=== PATIENT | female | born 2000 | race Caucasian/White ===

== ENCOUNTER 2023-04-12 08:04 | Outpatient (CLI) | payer OTHER, SELFPAY ==
[2023-04-16 12:00] LABS: Progesterone 20.6 ng/mL (***)
== END 2023-04-12 08:05 | disposition home or self-care (01) ==
PROVIDERS: Visit Provider Advanced Practice Midwife
DX: Z31.9 Encounter for procreative management, unspecified (principal)
CPT/HCPCS: 36415; 84144

== ENCOUNTER 2023-04-25 10:43 | Outpatient (CLI) | payer OTHER, SELFPAY ==
--- NOTE | ~2023-04-25 | XR_ITS ---
XR hysterosalpingogram DATE: 04/25/2023 12:19 INDICATION: Female infertility TECHNIQUE: Fluoroscopy and spot images were obtained during a hysterosalpingogram performed by the necologist. COMPARISON: None FINDINGS: Normal shape and size of the uterine cavity. There is opacification of both fallopian tubes , which are of normal caliber, with bilateral peritoneal spillage of contrast material. IMPRESSION: Normal hysterosalpingogram Reviewed, dictated and finalized at [facility]. Reviewed, dictated and finalized at [facility]. IMPRESSION: Normal hysterosalpingogram
[2023-04-25 11:59] LABS: Beta HCG Quantitative < 2.39 mIU/ML
--- NOTE | 2023-04-25 12:34 | W.PM.PROC2 ---
Procedure Note - Detailed Date of Procedure 04/25/23 Pre-op Diagnosis Infertility Post-op Diagnosis Same Procedure Performed Hysterosalpingogram Surgeon Robert Yoo MD Anesthesia None Indications unexplained infertility Findings normal hysterosalpingogram Description of Procedure the patient was placed on the fluoroscopy table. A speculum was placed in the vagina. Cervix was grasped with a tenaculum. The catheter was placed the uterine cavity and the bulb was inflated. The speculum was removed with the angiocath still placed in the intrauterine cavity. Dye was then removed. The catheter. Fluoroscopic images obtained this process. Patient experienced some moderate to severe discomfort. The balloon of the catheter was deflated and the catheter was removed while the images were being obtained. The procedure was terminated. Patient tolerated the procedure well. There were no complications. Estimated Blood Loss 0 Complications No immediate complications Condition Stable Disposition Other
== END 2023-04-25 10:44 | disposition home or self-care (01) ==
PROVIDERS: Visit Provider Obstetrics & Gynecology
DX: N97.9 Female infertility, unspecified (principal)
CPT/HCPCS: 36415; 58340; 74740; 84702; Q9966

== ENCOUNTER 2023-11-29 09:24 | Outpatient (CLI) | payer OTHER, SELFPAY | END 2023-11-29 09:25 | disposition home or self-care (01) | LOC: ANHLAB 09:28 | PROVIDERS: Visit Provider Advanced Practice Midwife | DX: Z32.01 Encounter for pregnancy test, result positive (principal) | CPT/HCPCS: 36415; 84702 ==

== ENCOUNTER 2024-06-30 11:51 | Outpatient (CLI) | payer OTHER, SELFPAY ==
[2024-06-30 12:37] VITALS: BP 150/89; PULSE 72
[2024-06-30 12:53] LABS: Basophils Percent Auto 0.2 % (0.2-1.2); Eosinophils Absolute Auto 0.1 K/mm3 (0-0.3); Hematocrit 38.2 % (37.0-47.0); Hemoglobin 12.9 g/dL (12.0-15.0); Immature Granulocyte Absolute 0.03 K/mm3 (0.00-0.031); Immature Granulocyte Percent A 0.5 % (0-0.5); Lymphocytes Absolute Auto 1.06 K/mm3 (0.9-3.2); Lymphocytes Percent Auto 16.9 % (18.3-44.2); Mean Corpuscular HGB Conc 33.8 g/dl (32-36); Mean Corpuscular Hemoglobin 29.5 pg (26-34); Mean Corpuscular Volume 87.4 fl (80-100); Mean Platelet Volume 11.6 fl (7.4-10.4); Monocytes Absolute Auto 0.6 K/mm3 (0.1-0.6); Monocytes Percent Auto 9.6 % (2.6-8.5); Neutrophils Absolute Auto 4.5 K/mm3 (1.3-6.7); Neutrophils Percent Auto 71.8 % (45.5-73.1); Platelet Count Result 179 k/mm3 (150-375); Red Blood Count 4.37 M/mm3 (4.2-5.4); Red Cell Distribution Width 12.2 % (11.5-14.5); White Blood Count 6.3 K/mm3 (4.5-10.0)
[2024-06-30 12:58] LABS: Add Urine Microscopic? YES; Appearance Urine Clear (Clear); Bacteria Urine 4+ /hpf; Bilirubin Urine Negative (Negative); Blood Urine Trace (Negative); Color Urine Yellow (Yellow); Glucose Urine UA Negative (Negative); Ketones Urine Negative (Negative); Leukocyte Esterase Ur Trace LEU/UL (Negative); Nitrate Urine Negative (Negative); Protein Urine 3+ mg/dL (Negative); Specific Grav Ur 1.012 (1.001-1.035); Squamous Epithelial Cell Urine Few /hpf (Few); Urobilinogen Urine 0.2 mg/dL (<2.0); WBC Urine 21-50 /hpf (0-3); pH Urine 7.5 (5.0-9.0)
[2024-06-30 13:01] VITALS: BP 132/79; PULSE 69
[2024-06-30 13:05] LABS: Alanine Aminotransferase 17 U/L (6-35); Albumin Level 3.5 g/dL (3.5-5.1); Alkaline Phosphatase 101 U/L (38-126); Anion Gap 5 mmol/L (4-12); Aspartate Amino Transferase 25 U/L (14-36); Bilirubin,Total 0.3 mg/dL (0.2-1.3); Blood Urea Nitrogen 5 mg/dL (7-17); Calcium 9.1 mg/dL (8.4-10.2); Carbon Dioxide 23 mmol/L (22-30); Chloride 106 mmol/L (98-107); Estimated Glomerular Filt Rate > 60; Glucose 83 mg/dL (65-110); Potassium 4.1 mmol/L (3.4-5.0); Sodium 134 mmol/L (137-145); Uric Acid 5.2 mg/dL (2.5-7.5)
[2024-06-30 13:13] VITALS: BP 132/79; PULSE 69
[2024-06-30 13:15] VITALS: BP 137/84; PULSE 74
[2024-06-30 13:31] VITALS: BP 138/85; PULSE 71
[2024-06-30 13:43] LABS: Creatinine Urine 81.5 mg/dL
--- NOTE | 2024-06-30 13:45 | PC.NURSE ---
pt to preadmit office for her preadmission appointment.
[2024-06-30 14:41] LABS: Total Protein Urine Random 501 mg/dL; Ur Ttl Prot Creatinine Ratio 6.15 mg/mg (0-0.20)
== END 2024-06-30 13:45 | disposition home or self-care (01) ==
LOC: ANHOBOP 12:08 → ANHOBPP 12:10
PROVIDERS: Visit Provider Advanced Practice Midwife
DX: O13.9 Gestational [pregnancy-induced] hypertension without significant proteinuria, unspecified trimester (principal); Z3A.00 Weeks of gestation of pregnancy not specified
CPT/HCPCS: 36415; 59025; 80053; 81001; 82570; 84156; 84550; 85025; 87086

== ENCOUNTER 2024-07-02 11:43 | Outpatient (CLI) | payer OTHER, SELFPAY ==
[2024-07-02 12:16] VITALS: BP 138/75; PULSE 67
[2024-07-02 12:21] LABS: Basophils Percent Auto 0.3 % (0.2-1.2); Eosinophils Absolute Auto 0.1 K/mm3 (0-0.3); Eosinophils Percent Auto 1.4 % (0-4.4); Hematocrit 37.8 % (37.0-47.0); Hemoglobin 12.8 g/dL (12.0-15.0); Immature Granulocyte Absolute 0.05 K/mm3 (0.00-0.031); Immature Granulocyte Percent A 0.7 % (0-0.5); Lymphocytes Absolute Auto 1.92 K/mm3 (0.9-3.2); Lymphocytes Percent Auto 26.8 % (18.3-44.2); Mean Corpuscular HGB Conc 33.9 g/dl (32-36); Mean Corpuscular Hemoglobin 29.3 pg (26-34); Mean Corpuscular Volume 86.5 fl (80-100); Mean Platelet Volume 11.4 fl (7.4-10.4); Monocytes Absolute Auto 0.6 K/mm3 (0.1-0.6); Monocytes Percent Auto 7.8 % (2.6-8.5); Neutrophils Absolute Auto 4.5 K/mm3 (1.3-6.7); Platelet Count Result 180 k/mm3 (150-375); Red Blood Count 4.37 M/mm3 (4.2-5.4); Red Cell Distribution Width 12.4 % (11.5-14.5); White Blood Count 7.2 K/mm3 (4.5-10.0)
[2024-07-02] MEDS: ACETAMINOPHEN 500 MG TABLET 1000 MG PO (12:27)
[2024-07-02 12:31] VITALS: BP 134/84; PULSE 67
[2024-07-02 12:33] LABS: Alanine Aminotransferase 17 U/L (6-35); Albumin Level 3.5 g/dL (3.5-5.1); Alkaline Phosphatase 104 U/L (38-126); Anion Gap 4 mmol/L (4-12); Aspartate Amino Transferase 27 U/L (14-36); Bilirubin,Total 0.4 mg/dL (0.2-1.3); Blood Urea Nitrogen 7 mg/dL (7-17); Calcium 9.4 mg/dL (8.4-10.2); Carbon Dioxide 22 mmol/L (22-30); Chloride 108 mmol/L (98-107); Estimated Glomerular Filt Rate > 60; Glucose 73 mg/dL (65-110); Potassium 3.8 mmol/L (3.4-5.0); Sodium 134 mmol/L (137-145); Uric Acid 5.5 mg/dL (2.5-7.5)
[2024-07-02 12:40] VITALS: BP 138/75; PULSE 61
== END 2024-07-02 12:47 | disposition home or self-care (01) ==
LOC: ANHOBOP 11:48 → ANHOBPP 11:53
PROVIDERS: Advanced Practice Midwife; Visit Provider Obstetrics & Gynecology
DX: O13.9 Gestational [pregnancy-induced] hypertension without significant proteinuria, unspecified trimester (principal); Z3A.00 Weeks of gestation of pregnancy not specified
CPT/HCPCS: 36415; 59025; 80053; 84550; 85025; 99199; A9270

== ENCOUNTER 2024-07-03 09:34 | Outpatient (CLI) | payer OTHER, SELFPAY ==
[2024-07-03 10:01] VITALS: BP 153/59; PULSE 78
[2024-07-03 10:16] VITALS: BP 141/90; PULSE 67
[2024-07-03 10:19] LABS: Basophils Percent Auto 0.3 % (0.2-1.2); Eosinophils Absolute Auto 0.1 K/mm3 (0-0.3); Eosinophils Percent Auto 1.8 % (0-4.4); Hematocrit 36.8 % (37.0-47.0); Hemoglobin 12.6 g/dL (12.0-15.0); Immature Granulocyte Absolute 0.05 K/mm3 (0.00-0.031); Immature Granulocyte Percent A 0.8 % (0-0.5); Lymphocytes Percent Auto 21.1 % (18.3-44.2); Mean Corpuscular HGB Conc 34.2 g/dl (32-36); Mean Corpuscular Hemoglobin 29.9 pg (26-34); Mean Corpuscular Volume 87.2 fl (80-100); Mean Platelet Volume 11.2 fl (7.4-10.4); Monocytes Absolute Auto 0.4 K/mm3 (0.1-0.6); Monocytes Percent Auto 6.3 % (2.6-8.5); Neutrophils Absolute Auto 4.6 K/mm3 (1.3-6.7); Neutrophils Percent Auto 69.7 % (45.5-73.1); Platelet Count Result 170 k/mm3 (150-375); Red Blood Count 4.22 M/mm3 (4.2-5.4); Red Cell Distribution Width 12.5 % (11.5-14.5); White Blood Count 6.6 K/mm3 (4.5-10.0)
[2024-07-03 10:28] LABS: Alanine Aminotransferase 17 U/L (6-35); Albumin Level 3.3 g/dL (3.5-5.1); Alkaline Phosphatase 89 U/L (38-126); Anion Gap 4 mmol/L (4-12); Aspartate Amino Transferase 24 U/L (14-36); Bilirubin,Total 0.3 mg/dL (0.2-1.3); Blood Urea Nitrogen 7 mg/dL (7-17); Calcium 9.3 mg/dL (8.4-10.2); Carbon Dioxide 24 mmol/L (22-30); Chloride 106 mmol/L (98-107); Estimated Glomerular Filt Rate > 60; Glucose 116 mg/dL (65-110); Potassium 3.7 mmol/L (3.4-5.0); Sodium 134 mmol/L (137-145); Uric Acid 5.6 mg/dL (2.5-7.5)
[2024-07-03 10:31] VITALS: BP 148/84; PULSE 74
[2024-07-03 10:37] VITALS: TEMP 36.6
== END 2024-07-03 10:50 | disposition home or self-care (01) ==
LOC: ANHOBOP 09:38 → ANHOBPP 09:39
PROVIDERS: Visit Provider Obstetrics & Gynecology
DX: O13.9 Gestational [pregnancy-induced] hypertension without significant proteinuria, unspecified trimester (principal); Z3A.00 Weeks of gestation of pregnancy not specified
CPT/HCPCS: 36415; 80053; 84550; 85025

== ENCOUNTER 2024-07-04 20:08 | Outpatient (CLI) | payer OTHER, SELFPAY ==
[2024-07-04] VITALS (7 sets, daily range): BP systolic 141–156; BP diastolic 85–99; PULSE 58–66
[2024-07-04 20:38] LABS: Basophils Percent Auto 0.1 % (0.2-1.2); Eosinophils Absolute Auto 0.1 K/mm3 (0-0.3); Eosinophils Percent Auto 1.9 % (0-4.4); Hematocrit 34.5 % (37.0-47.0); Hemoglobin 12.2 g/dL (12.0-15.0); Immature Granulocyte Absolute 0.04 K/mm3 (0.00-0.031); Immature Granulocyte Percent A 0.6 % (0-0.5); Lymphocytes Absolute Auto 1.69 K/mm3 (0.9-3.2); Lymphocytes Percent Auto 24.3 % (18.3-44.2); Mean Corpuscular HGB Conc 35.4 g/dl (32-36); Mean Corpuscular Hemoglobin 30.2 pg (26-34); Mean Corpuscular Volume 85.4 fl (80-100); Mean Platelet Volume 11.2 fl (7.4-10.4); Monocytes Absolute Auto 0.4 K/mm3 (0.1-0.6); Monocytes Percent Auto 5.2 % (2.6-8.5); Neutrophils Absolute Auto 4.7 K/mm3 (1.3-6.7); Neutrophils Percent Auto 67.9 % (45.5-73.1); Platelet Count Result 167 k/mm3 (150-375); Red Blood Count 4.04 M/mm3 (4.2-5.4); Red Cell Distribution Width 12.3 % (11.5-14.5)
[2024-07-04 20:54] LABS: Alanine Aminotransferase 16 U/L (6-35); Alkaline Phosphatase 89 U/L (38-126); Anion Gap 4 mmol/L (4-12); Aspartate Amino Transferase 42 U/L (14-36); Bilirubin,Total 0.2 mg/dL (0.2-1.3); Blood Urea Nitrogen 6 mg/dL (7-17); Calcium 8.9 mg/dL (8.4-10.2); Carbon Dioxide 23 mmol/L (22-30); Chloride 106 mmol/L (98-107); Estimated Glomerular Filt Rate > 60; Glucose 107 mg/dL (65-110); Potassium 3.6 mmol/L (3.4-5.0); Sodium 133 mmol/L (137-145); Uric Acid 5.7 mg/dL (2.5-7.5)
[2024-07-04 20:55] LABS: Creatinine Urine 212.6 mg/dL
[2024-07-04 20:56] LABS: Add Urine Microscopic? YES; Appearance Urine Turbid (Clear); Bacteria Urine 4+ /hpf; Bilirubin Urine Negative (Negative); Blood Urine 1+ (Negative); Color Urine Yellow (Yellow); Glucose Urine UA Negative (Negative); Ketones Urine Trace mg/dL (Negative); Leukocyte Esterase Ur 2+ LEU/UL (Negative); Mucus Urine Present /lpf; Need Manual Microscopic Reviewed; Nitrate Urine Negative (Negative); Non Pathogenic Casts >20; Protein Urine 4+ mg/dL (Negative); Specific Grav Ur 1.028 (1.001-1.035); Squamous Epithelial Cell Urine Many /hpf (Few); WBC Urine >100 /hpf (0-3); pH Urine 6.5 (5.0-9.0)
[2024-07-04 21:37] LABS: Total Protein Urine Random > 600 mg/dL; Ur Ttl Prot Creatinine Ratio > 2.82 mg/mg (0-0.20)
== END 2024-07-04 22:00 | disposition home or self-care (01) ==
LOC: ANHOBOP 20:12 → ANHOBPP 20:13
PROVIDERS: Visit Provider Advanced Practice Midwife
DX: R10.11 Right upper quadrant pain (principal)
CPT/HCPCS: 36415; 80053; 81001; 82570; 84156; 84550; 85025; 87086

== ENCOUNTER 2024-07-06 12:14 | Outpatient (RCR) | payer OTHER, SELFPAY ==
[2024-07-06 12:45] LABS: Basophils Percent Auto 0.3 % (0.2-1.2); Eosinophils Absolute Auto 0.1 K/mm3 (0-0.3); Eosinophils Percent Auto 1.5 % (0-4.4); Hematocrit 39.2 % (37.0-47.0); Hemoglobin 13.4 g/dL (12.0-15.0); Immature Granulocyte Absolute 0.04 K/mm3 (0.00-0.031); Immature Granulocyte Percent A 0.5 % (0-0.5); Lymphocytes Absolute Auto 1.44 K/mm3 (0.9-3.2); Lymphocytes Percent Auto 18.6 % (18.3-44.2); Mean Corpuscular HGB Conc 34.2 g/dl (32-36); Mean Corpuscular Hemoglobin 29.6 pg (26-34); Mean Corpuscular Volume 86.7 fl (80-100); Mean Platelet Volume 11.5 fl (7.4-10.4); Monocytes Absolute Auto 0.5 K/mm3 (0.1-0.6); Monocytes Percent Auto 5.9 % (2.6-8.5); Neutrophils Absolute Auto 5.7 K/mm3 (1.3-6.7); Neutrophils Percent Auto 73.2 % (45.5-73.1); Platelet Count Result 160 k/mm3 (150-375); Red Blood Count 4.52 M/mm3 (4.2-5.4); Red Cell Distribution Width 12.4 % (11.5-14.5); White Blood Count 7.8 K/mm3 (4.5-10.0)
[2024-07-06 12:56] LABS: Alanine Aminotransferase 21 U/L (6-35); Albumin Level 3.4 g/dL (3.5-5.1); Alkaline Phosphatase 110 U/L (38-126); Anion Gap 3 mmol/L (4-12); Aspartate Amino Transferase 31 U/L (14-36); Bilirubin,Total 0.4 mg/dL (0.2-1.3); Blood Urea Nitrogen 7 mg/dL (7-17); Calcium 9.1 mg/dL (8.4-10.2); Carbon Dioxide 23 mmol/L (22-30); Chloride 107 mmol/L (98-107); Estimated Glomerular Filt Rate > 60; Glucose 96 mg/dL (65-110); Potassium 3.8 mmol/L (3.4-5.0); Sodium 133 mmol/L (137-145); Uric Acid 5.7 mg/dL (2.5-7.5)
[2024-07-06 13:02] VITALS: BP 144/93; PULSE 65
== END 2024-08-07 16:14 | disposition home or self-care (01) ==
LOC: ANHOBOP 12:14
PROVIDERS: Visit Provider Advanced Practice Midwife
DX: O14.93 Unspecified pre-eclampsia, third trimester (principal); Z3A.36 36 weeks gestation of pregnancy
CPT/HCPCS: 36415; 59025; 80053; 84550; 85025

== ENCOUNTER 2024-07-07 12:08 | Outpatient (CLI) | payer OTHER, SELFPAY ==
[2024-07-07 12:21] VITALS: BP 170/90; PULSE 71
[2024-07-07 12:23] VITALS: BP 145/84; PULSE 80
[2024-07-07 12:31] VITALS: BP 145/82; PULSE 70
[2024-07-07 12:43] LABS: Basophils Percent Auto 0.2 % (0.2-1.2); Eosinophils Absolute Auto 0.1 K/mm3 (0-0.3); Eosinophils Percent Auto 1.7 % (0-4.4); Hematocrit 38.1 % (37.0-47.0); Hemoglobin 13.3 g/dL (12.0-15.0); Immature Granulocyte Absolute 0.05 K/mm3 (0.00-0.031); Immature Granulocyte Percent A 0.6 % (0-0.5); Lymphocytes Absolute Auto 1.59 K/mm3 (0.9-3.2); Lymphocytes Percent Auto 19.3 % (18.3-44.2); Mean Corpuscular HGB Conc 34.9 g/dl (32-36); Mean Corpuscular Hemoglobin 29.8 pg (26-34); Mean Corpuscular Volume 85.4 fl (80-100); Mean Platelet Volume 11.1 fl (7.4-10.4); Monocytes Absolute Auto 0.6 K/mm3 (0.1-0.6); Monocytes Percent Auto 6.7 % (2.6-8.5); Neutrophils Absolute Auto 5.9 K/mm3 (1.3-6.7); Neutrophils Percent Auto 71.5 % (45.5-73.1); Platelet Count Result 182 k/mm3 (150-375); Red Blood Count 4.46 M/mm3 (4.2-5.4); Red Cell Distribution Width 12.4 % (11.5-14.5); White Blood Count 8.2 K/mm3 (4.5-10.0)
[2024-07-07 12:46] VITALS: BP 133/93; PULSE 76
[2024-07-07 12:55] LABS: Alanine Aminotransferase 22 U/L (6-35); Albumin Level 3.2 g/dL (3.5-5.1); Alkaline Phosphatase 110 U/L (38-126); Anion Gap 3 mmol/L (4-12); Aspartate Amino Transferase 31 U/L (14-36); Bilirubin,Total 0.3 mg/dL (0.2-1.3); Blood Urea Nitrogen 8 mg/dL (7-17); Calcium 9.1 mg/dL (8.4-10.2); Carbon Dioxide 22 mmol/L (22-30); Chloride 107 mmol/L (98-107); Estimated Glomerular Filt Rate > 60; Glucose 77 mg/dL (65-110); Potassium 3.9 mmol/L (3.4-5.0); Sodium 132 mmol/L (137-145); Uric Acid 5.3 mg/dL (2.5-7.5)
== END 2024-07-07 13:30 | disposition home or self-care (01) ==
LOC: ANHOBOP 12:13 → ANHOBPP 07-12 08:25
PROVIDERS: Advanced Practice Midwife; Visit Provider Obstetrics & Gynecology
DX: O13.9 Gestational [pregnancy-induced] hypertension without significant proteinuria, unspecified trimester (principal); Z3A.00 Weeks of gestation of pregnancy not specified
CPT/HCPCS: 36415; 59025; 80053; 84550; 85025; 99199

== ENCOUNTER 2024-07-12 10:03 | Inpatient (IN) | payer OTHER, SELFPAY ==
[2024-07-12] VITALS (58 sets, daily range): BP systolic 120–160; BP diastolic 67–127; PULSE 56–101; RESP 14–20; TEMP 36.4–37.2; O2SAT 88–100; BMI 44.0
--- NOTE | 2024-07-12 10:35 | LDADM ---
This patient, Annabel Villatoro, was admitted to Labor/Delivery/Recovery 119 on 07/12/24 at 10:03. Plans for labor, pain management and were discussed with patient. Patient/family oriented to hospital policies and general routines including ID bracelet, bed and alarms, visiting hours, pain management, procedures, bathroom and other care routines, personal items, smoking policy, room service/diet and guest tray routines, infant security routines, and visiting hours. Patient/Family are encouraged to report perceived risks to care and to ask questions if they do not understand what they are told or what they should do. See OBIX for further documentation.
[2024-07-12] MEDS: PLEASE ENTER PATIENTS WEIGHT XX (10:41)
[2024-07-12] MEDS: ACETAMINOPHEN 500 MG TABLET 1000 MG PO (10:46)
[2024-07-12] MEDS: LACTATED RINGERS 1,000 ML 125 ML IV CONT ×3 (10:47→14:37)
--- NOTE | 2024-07-12 10:51 | P.PNAN_ITS ---
Anes - Initial Pre Proc Eval Procedure: Operation Date: 07/12/24 12:00 Proposed Procedures p Section - Byron Yoo MD Date/Time: 07/12/24 10:51 Surgeon: Byron Yoo MD Pre Op Diagnosis: c/s (breech presentation) Patient Data Age: 24 Gender: F Height: 1.65 m Weight: 120 kg Last Vital Signs O2 Del Method Room Air 07/12/24 10:33 Allergies Allergy/AdvReac Type Severity Reaction Status Date / Time No Known Allergies Allergy Verified 06/30/24 13:21 Home Medications ?Medication ?Instructions ?Recorded ?Confirmed ?Type cephalexin 500 mg capsule 500 mg PO Q12H 7 days #14 caps 06/30/24 Rx levothyroxine 112 mcg tablet 112 mcg PO DAILY 06/30/24 06/30/24 History (Unithroid) vits no.126-ferrous fum 1 tablet PO DAILY 06/30/24 06/30/24 History 28 mg iron-folic acid 800 mcg tablet (Classic ) Patient hx anesthesia problems: none Family hx anesthesia problems: none Results Review: All pre-operative results and documents have been reviewed as part of the pre- operative evaluation. PMFSH Past Medical History Medical History (Updated 07/12/24 @ 10:51 by Alfonso Murillo DO) Hypothyroidism Family History Family History (Updated 06/30/24 @ 13:48 by Christy Hernandez RN) Other No pertinent family history Social History Social History Smoking status: Never smoker Substance use: never Do You Feel Safe in your Home?: Yes Lack of Transportation: No Lack of Food: Never True Current Housing: I Have Housing Concerned About Future Housing: No Difficulty Paying Gas/Electric Bills: No Difficulty Paying for Meds: No Currently Unemployed: No Education: Don't Know Difficulty w/ Childcare or Family Care: No Spiritual care concerns: No Anes - Eval Final PreProcedure Day of Procedure 07/12/24 10:51 Patient weight: obese Heart: regular rate and rhythm Lungs: clear to auscultation and normal air movement Airway: Mallampati scale class II Neurological: alert and oriented Last oral intake: >/= 8 hours ASA classification: III Emergent: no Anesthetic plan: proceed Anesthesia type and monitoring: regional spinal and standard monitoring Results Review: All pre-operative results and documents have been reviewed as part of the pre- operative evaluation. Informed Consent: The patient's anesthetic plan and its attendant risks and benefits were discussed with the patient/family/POA. Questions were solicited and answers provided to the satisfaction of the patient/family/POA.
[2024-07-12 10:57] LABS: Basophils Percent Auto 0.2 % (0.2-1.2); Eosinophils Absolute Auto 0.2 K/mm3 (0-0.3); Eosinophils Percent Auto 1.7 % (0-4.4); Hematocrit 38.1 % (37.0-47.0); Hemoglobin 13.3 g/dL (12.0-15.0); Immature Granulocyte Absolute 0.05 K/mm3 (0.00-0.031); Immature Granulocyte Percent A 0.6 % (0-0.5); Lymphocytes Percent Auto 21.3 % (18.3-44.2); Mean Corpuscular HGB Conc 34.9 g/dl (32-36); Mean Corpuscular Volume 85.8 fl (80-100); Mean Platelet Volume 11.9 fl (7.4-10.4); Monocytes Absolute Auto 0.6 K/mm3 (0.1-0.6); Monocytes Percent Auto 6.9 % (2.6-8.5); Neutrophils Absolute Auto 6.2 K/mm3 (1.3-6.7); Neutrophils Percent Auto 69.3 % (45.5-73.1); Platelet Count Result 186 k/mm3 (150-375); Red Blood Count 4.44 M/mm3 (4.2-5.4); Red Cell Distribution Width 12.5 % (11.5-14.5); White Blood Count 8.9 K/mm3 (4.5-10.0)
[2024-07-12 11:07] LABS: Alanine Aminotransferase 23 U/L (6-35); Albumin Level 3.1 g/dL (3.5-5.1); Alkaline Phosphatase 112 U/L (38-126); Anion Gap 2 mmol/L (4-12); Aspartate Amino Transferase 29 U/L (14-36); Bilirubin,Total 0.3 mg/dL (0.2-1.3); Blood Urea Nitrogen 8 mg/dL (7-17); Calcium 8.7 mg/dL (8.4-10.2); Carbon Dioxide 23 mmol/L (22-30); Chloride 107 mmol/L (98-107); Estimated CRCL calculation 186 ml/min; Estimated Glomerular Filt Rate > 60; Glucose 81 mg/dL (65-110); Potassium 4.1 mmol/L (3.4-5.0); Sodium 132 mmol/L (137-145)
[2024-07-12 11:27] LABS: Rapid Plasma Reagin Non-Reactive (NonReactive)
[2024-07-12] MEDS: FAMOTIDINE 20 MG/2 ML VIAL IV PUSH (11:31)
[2024-07-12] MEDS: ONDANSETRON INJ 4 MG/2 ML VIAL IV PUSH ×3 (11:32→21:59)
[2024-07-12 11:48] LABS: HIV 1/2 Ab P24 Ag Result Negative (Negative)
[2024-07-12] MEDS: MAGNESIUM SULF 4 GM/WATER100ML 4 GM/100 ML BAG IVPB (12:06)
[2024-07-12] MEDS: LACTATED RINGERS 1,000 ML 75 ML IV CONT (12:07)
--- NOTE | 2024-07-12 12:20 | P.HP_ITS ---
H&P: HPI History of Present Illness Date/Time: 07/12/24 12:20 Chief Complaint: Term , breech Narrative: 24-year-old primipara with a infant in the breech position at term. Agreed to proceed with delivery. The patient understands the details of the procedure. The procedure has been explained in detail. She understands the risks. She understands that injuries may occur that result in hospitalization, more surgery, and severe illness. She understands risk of hemorrhage and infection. She denies any chest pain or shortness of breath. She denies any nausea, vomiting, fever, chills. Review of Systems Review of Systems: All systems reviewed & are unremarkable except as noted in HPI and below Constitutional: Constitutional: Denies chills, Denies fatigue, Denies fever(s) and Denies weakness Eyes: Eyes: Denies blurry vision, Denies change in vision, Denies loss of peripheral vision, Denies loss of vision, Denies other visual disturbances and Denies eye pain ENT: Denies vertigo, Denies dizziness, Denies hearing loss, Denies mouth pain, Denies nasal obstruction, Denies neck mass and Denies neck pain Cardiovascular: Cardiovascular: Denies chest pain, Denies diaphoresis, Denies syncope, Denies leg edema and Denies dyspnea Respiratory: Respiratory: Denies chest congestion, Denies cough, Denies hemoptysis, Denies dyspnea and Denies wheezing Gastrointestinal: Gastrointestinal: Denies abdominal pain, Denies constipation, Denies diarrhea, Denies nausea and Denies vomiting Genitourinary: Genitourinary: Denies hematuria, Denies change in libido, D enies nocturia, Denies genital lesions, Denies flank pain and Denies urinary urgency Musculoskeletal: Musculoskeletal: Denies abnormal gait, Denies back pain, Denies myalgias, Denies arthralgias, Denies joint swelling, Denies muscle weakness and Denies neck pain Integumentary/Breasts: Skin/Breast: Denies swelling, Denies breast pain, Denies breast mass, Denies dry skin, Denies nipple discharge, Denies unusual bruising and Denies jaundice Neurologic: Denies Neuro-related abnormal movements, Denies Abnormal speech present, Denies abnormal gait, Denies behavioral changes, Denies confusion, Denies vertigo, Denies dizziness, Denies syncope, Denies loss of vision, Denies memory loss, Denies convulsions and Denies weakness Psychiatric: Psychiatric: Denies abnormal sleep pattern, Denies behavioral changes, Denies change in libido, Denies confusion, Denies depression, Denies anhedonia and Denies memory loss Endocrine: Endocrine: Reports no additional endocrine complaints, Denies change in libido and Denies fatigue Hematologic/Lymphatic: Hematologic/Lymphatic: Reports no additional hematologic/lymphatic complaints Allergic/Immunologic: Allergic/Immunologic: Reports no additional allergic/immunologic complaints and Denies wheezing PMFSH Past Medical History Medical History (Updated 07/12/24 @ 12:23 by Byron Yoo MD) Hypothyroidism Family History Family History (Updated 06/30/24 @ 13:48 by Christy Hernandez RN) Other No pertinent family history Social History Social History Smoking status: Never smoker Substance use: never Do You Feel Safe in your Home?: Yes Lack of Transportation: No Lack of Food: Never True Current Housing: I Have Housing Concerned About Future Housing: No Difficulty Paying Gas/Electric Bills: No Difficulty Paying for Meds: No Currently Unemployed: No Education: Don't Know Difficulty w/ Childcare or Family Care: No Spiritual care concerns: No Meds Home Medications and Allergies Home Medications ?Medication ?Instructions ?Recorded ?Confirmed ?Type cephalexin 500 mg capsule 500 mg PO Q12H 7 days #14 caps 06/30/24 Rx levothyroxine 112 mcg tablet 112 mcg PO DAILY 06/30/24 06/30/24 History (Unithroid) vits no.126-ferrous fum 1 tablet PO DAILY 06/30/24 06/30/24 History 28 mg iron-folic acid 800 mcg tablet (Classic ) Allergies Allergy/AdvReac Type Severity Reaction Status Date / Time No Known Allergies Allergy Verified 06/30/24 13:21 Vital Signs Vital Signs - 24 hr 07/12/24 10:33 07/12/24 11:30 07/12/24 11:46 Temperature Pulse Rate 93 75 Respiratory Rate Blood Pressure 157/122 H 160/107 H Pulse Oximetry Oxygen Delivery Room Air 07/12/24 12:01 07/12/24 12:08 07/12/24 12:13 Temperature 98.1 F Pulse Rate 70 75 Respiratory Rate 14 Blood Pressure 146/93 H 146/93 H Pulse Oximetry 99 98 Oxygen Delivery 07/12/24 12:16 Temperature Pulse Rate 75 Respiratory Rate Blood Pressure 126/88 Pulse Oximetry Oxygen Delivery Exam Const: General: cooperative, healthy appearing, comfortable and no acute distress Orientation/consciousness: oriented to person, oriented to place and oriented to time HENMT: Head: normal to inspection Ears: external ears normal Face/Nose/Sinus: Normal external nose present and normal facial exam Face and sinus: normal facial exam Eyes: General: appearance normal, both eyes and all related structures Neck: Neck: normal visual inspection, trachea midline and supple Resp: Auscultation: clear to auscultation bilaterally, no crackles, no rales, no rhonchi and no wheezes Cardio: Rate: regular rate Rhythm: regular rhythm Heart sounds: no click, no murmurs and no rubs GI: GI Palp: No abdominal tenderness, No Soft to palpation, No Tenderness to palpation present (GI) and No Palpable mass present Auscultation: normal bowel sounds Skin: General skin exam: normal color and no rashes or lesions noted Neuro: General: oriented to person, oriented to place and oriented to time Extrem: General: normal to inspection, no joint enlargement, no clubbing, cyanosis or edema, no pedal edema and no calf tenderness Psych: Appearance: grossly normal Mental Status: mental status grossly normal Speech and movement: Normal speech and movement present H&P: Results Labs Labs: Short CBC 07/12/24 Range/Units 10:27 WBC 8.9 (4.5-10.0) K/mm3 Hgb 13.3 (12.0-15.0) g/dL Hct 38.1 (37.0-47.0) % Plt Count 186 (150-375) k/mm3 [facility] 07/12/24 10:27 Sodium 132 L Potassium 4.1 Chloride 107 Carbon Dioxide 23 BUN 8 Creatinine 0.50 L Glucose 81 Calcium 8.7 Liver Function 07/12/24 Range/Units 10:27 Total Bilirubin 0.3 (0.2-1.3) mg/dL AST 29 (14-36) U/L ALT 23 (6-35) U/L Alkaline Phosphatase 112 (38-126) U/L Albumin 3.1 L (3.5-5.1) g/dL Assessment and Plan Assessment and plan (1) Breech presentation: Code(s): O32.1XX0 - Maternal care for breech presentation, not applicable or unspecified Status: Acute (2) Term : Code(s): Z34.90 - Encounter for supervision of normal , unspecified, unspecified trimester Status: Acute Plan 24-year-old 1 at 39 weeks gestation with breech presentation of the . Agreed to proceed with delivery. She understands the risks, benefits, and alternatives. She has complete informed consent process is ready to proceed.
--- NOTE | 2024-07-12 12:23 | WPDHPUPDATE1 ---
History and Physical Update Update Date/Time: 07/12/24 12:23 History and Physical has been reviewed, including an updated exam of the patient. There are NO changes in the patient's condition. Risks, benefits, and alternatives have been discussed and questions answered. Patient agrees to proceed with procedure.
[2024-07-12] MEDS: ceFAZolin 3 GM/D5W 100 ML 100 ML IVPB (12:34)
[2024-07-12] MEDS: MAGNESIUM SULF 20GM/WATER500ML 500 ML 50 MG IV CONT ×2 (12:36→22:49)
[2024-07-12] MEDS: KETOROLAC 15 MG/ML VIAL (*BKC) IV PUSH ×3 (13:00→22:53)
--- NOTE | 2024-07-12 13:22 | P.PCNOB_ITS ---
OB - Delivery Note Procedure Delivery date: 07/12/24 Pre-op diagnosis: Breech Presentation Post-op Diagnosis: Same Procedure Performed: Primary Surgeon: Byron Yoo MD Anesthesia type: Spinal Description of Procedure/Findings: Findings-term in the breech position, jackie breech, normal pelvic anatomy The patient was taken the operating room.? She was prepped and draped in dorsal supine position with a leftward tilt.? This was done after spinal anesthetic was applied.? A low-transverse skin incision was made and carried down till of the fascia with the knife.? The fascial incision was made with the knife.? The fascial incision was extended laterally with Lemos scissors.? The fascia was tented upward superiorly and inferiorly the rectus muscles were dissected off bluntly.? The rectus muscles were the midline.? The preperitoneal fat and peritoneum were dissected open bluntly at the superior aspect of the rectus muscles.? The peritoneal incision was extended superior and inferior with good position of bladder.? The uterine incision was made with a scalpel down to the level of the amniotic cavity.? The amniotic cavity was entered bluntly.? The was delivered.? The cord was clamped and cut and the was handed off to waiting pediatric staff.? Cord bloods were o btained.? The placenta was removed manually.? The uterus was exteriorized.? The uterus was cleared of all clots, debris and membranes.? The uterus was closed in 0 Vicryl running lock fashion.? An imbricating over a was placed along the incision line as well.? The uterus was returned to the abdomen.? The gutters were cleared of all clots and debris.? The fascia was closed with 0 Vicryl running fashion.? The subcutaneous tissue was irrigated pinpoint bleeders were cauterized.? The skin was closed with subcuticular absorbable dominic.? The skin incision line was covered with glue.? The patient tolerated the procedure well.? She has taken recovery room in stable condition.? Sponge lap and needle counts were correct x2.?
[2024-07-12] MEDS: OXYTOCIN 30 UNITS/NS 500 ML 30 UNITS/500 ML BAG 125 UNITS IV CONT (14:04)
--- NOTE | 2024-07-12 14:30 | PC.NURSE ---
Attempted to assist mom with latching infant for the first . Baby has a small mouth and a very tight jaw. He was able to suck on a gloved finger but getting past the gumline with a finger was difficult. We expressed some drops of colostrum onto baby's lips but were not able to get a latch. Baby will sometimes open his lips in a rooting fashion but the nipple meets with the gums and cannot reach the infants palate. Encouraged mom to continue skin to skin and we will try latching again soon. Reported to nursery RN.
[2024-07-12] MEDS: MORPHINE SULFATE INJ (*CRX) 10 MG/ML AMP 2.5 MG IV PUSH (15:49)
--- NOTE | 2024-07-12 16:00 | OBPPTRN ---
Patient transferred to post room #286 via stretcher. Support person present. Oriented to unit, room, information board, rooming in, admission packet and security measures. Patient verbalizes understanding.
[2024-07-12] MEDS: METOCLOPRAMIDE HCL INJ 10 MG/2 ML VIAL IV PUSH (19:00)
[2024-07-12] MEDS: LIDOCAINE 5% PATCH 1 PATCH TRANSDERM (19:58)
[2024-07-13] MEDS: METOCLOPRAMIDE HCL INJ 10 MG/2 ML VIAL IV PUSH (01:24)
[2024-07-13 04:00] VITALS: BP 141/86; PULSE 72; RESP 16; TEMP 36.8; O2SAT 98
[2024-07-13] MEDS: KETOROLAC 15 MG/ML VIAL (*BKC) IV PUSH ×2 (05:23→11:48)
[2024-07-13] MEDS: ACETAMINOPHEN 325 MG TABLET 650 MG PO ×3 (05:23→18:20)
[2024-07-13 05:26] LABS: Basophils Percent Auto 0.3 % (0.2-1.2); Eosinophils Percent Auto 0.2 % (0-4.4); Hematocrit 35.8 % (37.0-47.0); Hemoglobin 12.1 g/dL (12.0-15.0); Immature Granulocyte Absolute 0.06 K/mm3 (0.00-0.031); Immature Granulocyte Percent A 0.5 % (0-0.5); Lymphocytes Absolute Auto 1.59 K/mm3 (0.9-3.2); Lymphocytes Percent Auto 13.3 % (18.3-44.2); Mean Corpuscular HGB Conc 33.8 g/dl (32-36); Mean Corpuscular Volume 88.6 fl (80-100); Mean Platelet Volume 11.6 fl (7.4-10.4); Monocytes Absolute Auto 0.6 K/mm3 (0.1-0.6); Monocytes Percent Auto 5.3 % (2.6-8.5); Neutrophils Absolute Auto 9.6 K/mm3 (1.3-6.7); Neutrophils Percent Auto 80.4 % (45.5-73.1); Platelet Count Result 190 k/mm3 (150-375); Red Blood Count 4.04 M/mm3 (4.2-5.4); Red Cell Distribution Width 12.3 % (11.5-14.5)
[2024-07-13] MEDS: LACTATED RINGERS 1,000 ML 75 ML (05:29)
[2024-07-13] MEDS: LEVOTHYROXINE SODIUM 112 MCG TABLET PO (06:39)
[2024-07-13 07:10] VITALS: BP 151/79; PULSE 76; RESP 20; TEMP 36.6; O2SAT 98
[2024-07-13] MEDS: SIMETHICONE 80 MG TAB.CHEW PO ×2 (08:01→11:48)
[2024-07-13] MEDS: MULTIVIT/MIN/PREN/FOL AC/IRON TABLET 1 TAB PO (08:01)
[2024-07-13] MEDS: DOCUSATE SODIUM 100 MG CAPSULE PO (08:01)
[2024-07-13] MEDS: MAGNESIUM SULF 20GM/WATER500ML 500 ML 50 MG IV CONT (08:32)
--- NOTE | 2024-07-13 08:33 | PM.OBPNVD ---
OB - PN: Subj Subjective Date/time seen: 07/13/24 08:33 OB - PN: Obj Data Labs 07/13/24 05:10 07/12/24 10:27 Labs: Laboratory Results - last 24 hr 07/12/24 07/13/24 10:27 05:10 WBC 8.9 12.0 H RBC 4.44 4.04 L Hgb 13.3 12.1 Hct 38.1 35.8 L MCV 85.8 88.6 MCH 30.0 30.0 MCHC 34.9 33.8 RDW 12.5 12.3 Plt Count 186 190 MPV 11.9 H 11.6 H Immature Gran % (Auto) 0.6 H 0.5 Neut % (Auto) 69.3 80.4 H Lymph % (Auto) 21.3 13.3 L [place] % (Auto) 6.9 5.3 Eos % (Auto) 1.7 0.2 Baso % (Auto) 0.2 0.3 Lymph # (Auto) 1.90 1.59 [place] # (Auto) 0.6 0.6 Eos # (Auto) 0.2 0.0 Baso # (Auto) 0.0 0.0 Abs Immat Gran (auto) 0.05 H 0.06 H Absolute Neuts (auto) 6.2 9.6 H Absolute Nucleated RBC 0.000 0.000 Nucleated RBC % 0.0 0.0 Sodium 132 L Potassium 4.1 Chloride 107 Carbon Dioxide 23 Anion Gap 2 L BUN 8 Creatinine 0.50 L Estim Creat Clear Calc 186 Estimated GFR > 60 Glucose 81 Calcium 8.7 Total Bilirubin 0.3 AST 29 ALT 23 Alkaline Phosphatase 112 Total Protein 6.0 L Albumin 3.1 L RPR Non-reactive HIV 1&2 Ab/P24 Ag 4thGn Negative Blood Type B Positive Antibody Screen Negative OB - PN A/P Time Spent With Patient Time: Total time spent is greater than 50% in coordination of care (as documented) at patient's floor/unit and/or counseling patient: Time with patient: 15 - 25 minutes Exam Const: General: cooperative, healthy appearing, comfortable and no acute distress Resp: Auscultation: no crackles, no rales, no rhonchi and no wheezes Cardio: Rhythm: regular rhythm Heart sounds: no click and no murmurs GI: Inspection: non-distended Auscultation: normal bowel sounds Other: Incisions - CDI Extrem: General: normal to inspection, no pedal edema and no calf tenderness
[2024-07-13 11:40] VITALS: BP 141/82; PULSE 67; RESP 18; TEMP 36.8; O2SAT 98
--- NOTE | 2024-07-13 12:15 | PC.NURSE ---
Introductions were made, then consulted with patient to assess needs related to and pumping. Baby is in level 2 nursery due to glucose instability. Discussed with mother her?pumping experience so far. She has gotten small amounts of colostrum. Reviewed hand expression and consistent pumping schedule. Pumping log provided. Resources provided for inpatient and outpatient services with the feeding sheet, mom/baby guide, admission packet and name/number written on the communication board. Mother voiced understanding of information and will call if there is a request for assistance. Reported to the Primary RN.
--- NOTE | 2024-07-13 14:05 | PC.NURSE ---
Patient to 1st floor nursery to visit .
[2024-07-13 15:05] VITALS: BP 142/93; PULSE 64
--- NOTE | 2024-07-13 16:35 | WPDANLDPN2 ---
Anes-Prog Note L&D Date/Time: 07/13/24 16:35 Comfortable throughout: section Neuraxial method: spinal Epidural/Spinal procedure site: clean & non-tender Neuro status: Neuro function grossly intact. Cardiovascular status: normal Respiratory status: normal Airway patency: baseline Mental status: baseline Post-Op hydration status: normal Vital Signs: Last Vital Signs Temp 36.8 C 07/13/24 11:40 Pulse 64 07/13/24 15:05 Resp 18 07/13/24 11:40 BP 142/93 H 07/13/24 15:05 Pulse Ox 98 07/13/24 11:40 O2 Del Method Room Air 07/13/24 11:40 Pain score (VAS): 0 I/O: Intake & Output 07/13/24 07/13/24 07/13/24 07:59 15:59 23:59 Intake Total 600 2334.8 Output Total 2640 2450 Balance -2040 -115.2 Post-procedural complaints: none Patient feedback: Patient satisfied with anesthetic care.
--- NOTE | 2024-07-13 16:36 | WPDANLDNPN2 ---
Anes-Prog Note L&D-Neuraxial Date/Time: 07/13/24 16:36 Neuraxial medications: intrathecal PF morphine Opiod-related complaints: none Patient feedback: Patient satisfied with post-operative pain management.
[2024-07-13] MEDS: IBUPROFEN 600 MG TABLET PO (18:21)
[2024-07-13 19:45] VITALS: BP 141/83; PULSE 84; RESP 16; TEMP 37.1; O2SAT 99
[2024-07-14] MEDS: ACETAMINOPHEN 325 MG TABLET 650 MG PO ×4 (00:07→20:03)
[2024-07-14] MEDS: IBUPROFEN 600 MG TABLET PO ×4 (00:07→20:03)
[2024-07-14 00:30] VITALS: BP 148/92; PULSE 102; RESP 16; TEMP 36.8; O2SAT 98
[2024-07-14 07:45] VITALS: BP 139/90; PULSE 74; RESP 16; TEMP 37.1; O2SAT 98
[2024-07-14] MEDS: LIDOCAINE 5% PATCH 1 PATCH TRANSDERM (07:50)
[2024-07-14] MEDS: LEVOTHYROXINE SODIUM 112 MCG TABLET PO (07:50)
[2024-07-14] MEDS: MULTIVIT/MIN/PREN/FOL AC/IRON TABLET 1 TAB PO (07:51)
[2024-07-14] MEDS: SIMETHICONE 80 MG TAB.CHEW PO ×4 (07:51→16:40)
[2024-07-14] MEDS: DOCUSATE SODIUM 100 MG CAPSULE PO ×3 (07:51→16:40)
--- NOTE | 2024-07-14 08:20 | PC.NURSE ---
Introductions were made, then consulted with patient to assess needs related to . Mother led the conversation with her?plans to feed?her and the?experience so far. Mother would like to exclusively breastfeed but is open to pumping and supplementation if needed. Encouraged understanding of the benefits of skin to skin (demonstrating unwrapping infant and placing upright on her chest), stimulating with massage touch, changing positions to encourage wakefulness, how to watch for early feeding cues, responsive feeding, feeding on demand (aiming for 8-12 times in 24 hours, about every 2-3 hours), milk production, building/maintaining a milk supply, duration of feeding, signs of adequate intake/output and how to record on the feeding sheet. Mother works well with her infant with encouragement and education. Reviewed positioning and ear, shoulder, hip alignment, supporting the breast to facilitate a deep latch, asymmetrical latch (off-center), leading with the chin with a big, open, wide gape and body close to mother. Infant latched to the [left] breast in [football] position. Education given to the mother of how to visualize the suckling (with good rocking jaw motion), swallows (dropping of the lower jaw) and how to listen for drinking at the breast (the ka sound). Infant was [unable] to maintain latch, very sleepy, not giving much effort at the breast. Last feeding was around 0500 with a bottle, mother had wanted to try a nipple shield, RN obtained and then family came to visit and mother opted to bottle feed the milk she had pumped and then top off with formula, baby took 6mls of breast milk and 6mls of formula in 15 minutes. RN talked with mother about the 15-15-15 feeding plan and mother agreed. RN reviewed comfort measures of healing with a warm, wet washcloth to rinse breast, then leave open to air-dry, good handwashing when or touching the breast/nipples to prevent infection. Mother voiced understanding of skin to skin, stimulating with massage touch, responsive feedings, hand expressed colostrum, talking to to encourage if it has been 2 -2.5 hours since the start of the last , to call if does not latch, or if there is discomfort with . Mother had already been using hospital breast pump, the flange she used was too small, both nipples measured 22mm and she was given the size 27 flange. Resources used for education were facilitated with the [visual educational handouts/ tool/mom and baby guide], Inpatient/outpatient resources provided with business card, feeding sheet, name written on the communication board, and the mom/baby guide. Parents voiced understanding of information, demonstrated learning and will call if there is a request for assistance. Reported to the Primary RN.
[2024-07-14 12:02] VITALS: BP 147/81; PULSE 68; RESP 16; TEMP 36.6; O2SAT 99
[2024-07-14 16:00] VITALS: BP 152/96
--- NOTE | 2024-07-14 16:42 | P.PNOB_ITS ---
OB - PN: Subj Subjective Date/time seen: 07/14/24 16:42 Interval history: PPD#2 s/p PLTCS Doing well, no issues Pain well controlled Voiding without issue Passing flatus OB - PN: Obj Data Labs 07/13/24 05:10 07/12/24 10:27 OB - PN A/P Assessment and Plan (1) S/P section: Code(s): Z98.891 - History of uterine scar from previous surgery Status: Acute (2) Gestational hypertension: Code(s): O13.9 - Gestational [-induced] hypertension without significant proteinuria, unspecified trimester Status: Acute Assessment and Plan: - asymptomatic - BP mild range - labs wnl Plan day: 2 Plan: routine care Time Spent With Patient Time: Total time spent is greater than 50% in coordination of care (as documented) at patient's floor/unit and/or counseling patient: Review of Systems 2 Review of Systems: All systems reviewed & are unremarkable except as noted in HPI and below Exam 2 Const: General: comfortable and no acute distress O rientation/consciousness: patient oriented x3 Resp: Effort & Inspection: normal respiratory effort GI: Other: soft, nontender, nondistended, incision c/d/i
--- NOTE | 2024-07-14 17:53 | PC.NURSE ---
1730. Checked in with mom to see how feeding was going. Mom reports she continuing with the 15-15-15 plan, and currently pumping. She is going to continue to attempt to breastfeed for 15 min then supplement with expressed breast milk or formula after. Infant is currrently meeting requirements for weight loss and is down 1.81%, but does not put forth the effort needed to complete a feeding at the breast. Mom encouraged to call if she requires assistance with getting the infant latched or if she has questions. Mom reports she is good with this feeding plan and will continue to pump for breastmilk. Reported to the primary RN.
[2024-07-14 20:06] VITALS: BP 157/106; PULSE 80; RESP 18; TEMP 36.8; O2SAT 97
[2024-07-14] MEDS: HYDROcodone/acetaminophen (*CRX) 5-325 MG TABLET 1 TAB PO (21:26)
[2024-07-14 21:27] VITALS: PULSE 81
[2024-07-14] MEDS: LABETALOL HCL 100 MG TABLET 200 MG PO (21:27)
[2024-07-15 00:46] VITALS: BP 143/94; PULSE 72; RESP 18; O2SAT 97
[2024-07-15] MEDS: ACETAMINOPHEN 325 MG TABLET 650 MG PO ×2 (07:26→13:40)
[2024-07-15] MEDS: LEVOTHYROXINE SODIUM 112 MCG TABLET PO (07:26)
[2024-07-15] MEDS: IBUPROFEN 600 MG TABLET PO ×2 (07:27→13:41)
[2024-07-15] MEDS: HYDROcodone/acetaminophen (*CRX) 5-325 MG TABLET 1 TAB PO ×2 (07:28→13:42)
--- NOTE | 2024-07-15 08:28 | P.PNOB_ITS ---
OB - PN: Subj Subjective Date/time seen: 07/15/24 08:28 Interval history: PPD#2 s/p PLTCS Doing well, no issues Pain well controlled Voiding without issue Passing flatus Patient comments: no complaints, pain well controlled, incisional pain, tolerating diet and flatus present OB - PN: Obj Data Labs 07/13/24 05:10 07/12/24 10:27 OB - PN A/P Plan day: 3 Plan: routine care, discharge home and other Comments: Incision check in one week. Given precautions Time Spent With Patient Time: Total time spent is greater than 50% in coordination of care (as documented) at patient's floor/unit and/or counseling patient: Exam 2 Const: General: comfortable, no acute distress and alert Resp: Effort & Inspection: normal respiratory effort Auscultation: no crackles, no rales and no rhonchi Cardio: Rate: regular rate Heart sounds: no click, no murmurs and no rubs GI: Inspection: non-distended GI Palp: No Tenderness to palpation present (GI) Auscultation: normal bowel sounds Other: Incision - CDI Extrem: General: normal to inspection, no pedal edema and no calf tenderness
--- NOTE | 2024-07-15 08:29 | P.DS_ITS ---
DS: Admitting Diagnosis Discharge Date Admitting Diagnosis term DS: Discharge Diagnosis Discharge Diagnosis (1) S/P section: Code(s): Z98.891 - History of uterine scar from previous surgery Status: Acute OB - DS: Summary OB Procedures : None OB Procedures Intrapartum: OB Procedures: : None Peripartum Data Procedures: Procedures Operation Date: 07/12/24 12:00 Actual Procedure Side Surgeon p Section Not Applicable Byron Yoo MD Time Spent with Patient Time attestation: Total time spent providing and/or coordinating discharge services: Discharge Plan Discharge Consulting providers: Marilyn Willams Discharging Clinician: Byron Yoo Activity: pelvic rest Diet: regular Patient Language: Lithuanian Discharge Medications: New hydrocodone-acetaminophen 5-325 mg tablet 1 - 2 tablet PO Q6H PRN (Reason: pain) Qty: 25 0RF Continued Classic 28 mg iron- 800 mcg Tablet 1 tablet PO DAILY levothyroxine [Unithroid] 112 mcg tablet 112 mcg PO DAILY cephalexin 500 mg Capsule 500 mg PO Q12H 7 Days Qty: 14 0RF Date of admission: 07/12/24 10:03 Primary Care Provider: Jorge LuisRenae Admitting Provider: Byron Yoo Attending physician on admission: Byron Yoo Condition: Stable
[2024-07-15 08:30] VITALS: BP 144/89; PULSE 75; RESP 18; TEMP 36.4; O2SAT 99
--- NOTE | 2024-07-15 09:30 | PC.NURSE ---
Introductions were remade, then consulted with patient to assess needs related to . Discussed with mother her?plans to feed?her infant and the?experience so far. Per mother she is still attempting to latch baby but he has not been interested, she attempted a nipple shield last night as well and that did not improve his latching. Mother has been pumping and bottle feeding, doing well and baby is taking 25mls of pumped breast milk. Reviewed positioning and alignment, supporting breast, off-centered (asymmetrical latch) and leading with the chin with big, open, wide gape. Nipple care reviewed with optimal latch, good positioning and using clean hands when touching her breast. Resources used to facilitate learning were used from the [visual handouts/ tool/mom and baby guide]. Mother voiced understanding of the education shared, to call for assistance if needed with feeding. Resources provided for inpatient and outpatient services with the feeding sheet, mom/baby guide and name written on the communication board. Mother voiced understanding of information and will call if there is a request for assistance. Reported to the Primary RN and to Dr. Gaytan.
[2024-07-15 10:16] VITALS: PULSE 86
[2024-07-15] MEDS: SIMETHICONE 80 MG TAB.CHEW PO ×2 (10:16→13:41)
[2024-07-15] MEDS: DOCUSATE SODIUM 100 MG CAPSULE PO (10:16)
[2024-07-15] MEDS: LABETALOL HCL 100 MG TABLET 200 MG PO (10:16)
[2024-07-15 12:30] VITALS: BP 136/88; PULSE 76; RESP 16; TEMP 36.7; O2SAT 98
[2024-07-15] MEDS: MULTIVIT/MIN/PREN/FOL AC/IRON TABLET 1 TAB PO (13:42)
[2024-07-15] MEDS: LIDOCAINE 5% PATCH 1 PATCH TRANSDERM (13:43)
--- NOTE | 2024-07-15 13:51 | PC.NURSE ---
Patient instructed on viewing the discharge video Mother & Baby Care, The First Two Weeks . Patient was given the opportunity and encouraged to ask questions. Patient verbalized understanding of information shared and has been given the mother/baby guide for home reference.
[2024-07-17 11:37] VITALS: BP 137/95; PULSE 91; RESP 18; TEMP 36.9; O2SAT 100
--- OUTSIDE RECORDS SUMMARY | 2024-07-19 16:51 | XMS_ITS | Data Portability ---
Author Organization [facility] Address [address] [place] [address] [place] [address] Care Team Providers Care Client Account Manager Name Role Phone [facility] Primary Care Provider JERALD FRANKS Primary Care Provider [phone] Assessment Encounter Date Assessment Date Assessment LastModified by Organization Details LastModified Time 07/07/2024 07/07/2024 Patient is __36_weeks . Discussed plan. Not available 07/07/2024 13:56:35 Plan of Treatment Reminders Order Date Submit Date Provider Last Modified By Organization Details Last Modified Time Details Appointments SURG POST OP 2023 04:30P Venancio YOO MD Not available Not available Not available Lab None recorded. Referral None recorded. Procedures None recorded. Surgeries None recorded. Imaging non-stres s test 2023 024 [email or web address] [facility], [address], [place], [address], 07/05/2024 09:39:47 non-stres s test 2023 024 [email or web address] [facility], [address], [place], [address], 07/09/2024 06:44:17 US, obstetric , biophysic al profile + non-stres s test 2023 024 [email or web address] [facility], [address], [place], [address], 07/07/2024 14:19:44 US, obstetric , follow-up 2023 024 [email or web address] [facility], [address], [address], [place], [address], 07/07/2024 14:19:44 Medication Orders None recorded. Patient TargetsNo targets recorded. Patient InstructionsNo instructions recorded. Reason for Referral None Reported. Results Created Date Observation Date Name Description Value Unit Range Abnormal Flag Note LastModifiedBy Organization Detail LastModifiedTime 06/30/20 24 06/30/2024 CULTU RE: GROUP B STREP SCREE N, REFLE X SUSCE PTIBI LITY result report SEE RESULT S BELOW abnormal Test: Cultu re: Group B Strep , Refle x Susce ptibi lity ([facility]/ [facility]/K H/V[facility] ) Speci men Sourc e: Vagin a/Rec tyler Speci men Type: Vagin al/Re ctal Speci men Date: 2023 1420 Resul t Date: 2023 1501 Resul t Statu s: Final resul t Abnor mal: Yes Resul ting Lab: [facility] [address] [facility] [address] Tel: CULTU RE ----- ----- ----- --- Posit anthony for Strep tococ cus agala ctiae (Grou p B) (Abno rmal) Clind amyci n susce ptibl e, eryth romyc in resis tant. The clind amyci n induc tion test ( D-t est ) is negat anthony, there fore clind amyci n shoul d be clini gamaliel effec tive again st this isola te. Not Available [facility] (Lab) [address] [facility], [place], [address], 07/05/2024 16:05:28 06/09/20 24 06/09/2024 US, obste tric, follo w-up No observ ation record ed. [email or web address] [facility] [address], [place], [address], 06/09/2024 18:21:25 06/09/20 24 06/09/2024 US, obste tric, follo w-up No observ ation record ed. [email or web address] [address], [place], [address], 06/09/2024 23:15:46 06/30/20 24 06/30/2024 US, renea tric, bioph ysica l profi le + non-s tress test No observ ation record ed. [facility] [address], [place], [address], 06/30/2024 14:24:56 06/30/20 24 06/30/2024 US, obste tric, follo w-up No observ ation record ed. [email or web address] [address], [place], [address], 07/01/2024 18:39:43 07/02/20 24 07/02/2024 non-s tress test No observ ation record ed. [email or web address] [facility] [address], [place], [address], 07/02/2024 19:37:01 07/02/20 non-s tress test No observ ation record ed. [facility] [address], [place], [address], 07/02/2024 19:38:57 07/06/20 24 07/06/2024 non-s tress test No observ ation record ed. [address] [facility] [address], [place], [address], 07/06/2024 15:30:22 07/07/20 24 07/07/2024 US, renea tric, bioph ysica l profi le + non-s tress test No observ ation [facility] ed. [email or web address] [address], [place], [address], 07/07/2024 13:11:20 07/07/20 24 07/07/2024 US, obste tric, follo w-up No observ ation record ed. [facility] [address], [place], [address], 07/07/2024 13:11:30 07/07/20 24 07/07/2024 US, obste tric, follo w-up No observ ation record ed. [address] [facility], [place], [address], 07/08/2024 09:12:23 07/07/20 24 07/07/2024 non-s tress test No observ ation record ed. [email or web address] [facility] [address], [place], [address], 07/07/2024 14:50:51 Result Notes None recorded. Problems Name Problem SNOMED Code Status Onset Date Resolution Date Notes Provider Name and Address Organization Details Recorded Time Pregnanc y 20041310 Completed 202307/19/2024 Whit zaman, [facility] 4 17:45:12 Primary infertil ity 967405323 Completed [address], [place], [address], [facility] 4 14:44:04 Artifici al insemina tion Completed IUI by Sp [address], [place], [address], [facility] 4 14:44:04 Disorder of thyroid gland 94705293 Completed followed by endocrin e on unitoi d daily [address], [place], [address], [place] [facility] 14:44:04 Problem Notes None recorded. Procedures Surgical History Date Name Laterality Status Provider Name and Address Organization Details Recorded Time 07/12/20 24 SECTION (SURG) completed Gwen Glass [facility] 07/14/2024 20:00:50 12/24/19 Date of Last Pap Smear completed Gwennew Glass [facility] 12/24/2023 14:16:42 11/11/19 intrauterine artificial insemination completed Gwennew Glass [facility] 11/11/2023 10:01:37 Imaging Results Imaging Date Name Status LastModified by Organiz ation Details LastModified Time 06/09/2024 US, obstetric, follow-up completed [email or web address] [facility] [address], [place], [address], 06/09/2024 18:21:25 06/09/2024 US, obstetric, follow-up completed [email or web address] [address], [place], [address], 06/09/2024 23:15:46 06/30/2024 US, obstetric, biophysical profile + non-stress test completed [email or web address] [facility] [address], [place], [address], 06/30/2024 14:24:56 06/30/2024 US, obstetric, follow-up completed manjula [address], [place], [address], 07/01/2024 18:39:43 07/02/2024 non-stress test completed [email or web address] [facility] [address], [place], [address], 07/02/2024 19:37:01 07/02/2024 non-stress test completed [email or web address] [facility] [address], [place], [address], 07/02/2024 19:38:57 07/06/2024 non-stress test completed [address], [place], [address], 07/06/2024 15:30:22 07/07/2024 US, obstetric, biophysical profile + non-stress test completed [place] [address], [place], [address], 07/07/2024 13:11:20 07/07/2024 US, obstetric, follow-up completed [place] [address], [place], [address], 07/07/2024 13:11:30 07/07/2024 US, obstetric, follow-up completed [email or web address] [address], [place], [address], 07/08/2024 09:12:23 07/07/2024 non-stress test completed [email or web address] [address], [place], [address], 07/07/2024 14:50:51 Procedure Notes None recorded. Medical Equipment None Reported. Allergies No known drug allergies Medications Name Sig Start Date Stop Date Status Note LastModified by Organization Details LastModified Time Unithroid 88 mcg tablet TAKE 1 TABLET BY MOUTH ONCE DAILY IN THE MORNING 12/23 completed Not Available Not Available Not Available hydrocodo ne 5 mg-acetam inophen 325 mg tablet 07/19 completed Not Available Not Available Not Available Pregnyl 10,000 unit intramusc ular solution Inject 1 unit by intramus cular route. 12/23 completed Patient given pregnyl injectio n (supplie d by patient from pharmacy lot [id number] Exp 06/15/20 24 Not Available Not Available Not Available liothyron ine 5 mcg tablet TAKE 1 TABLET BY MOUTH ONCE DAILY AT NOON 09/30 completed Not Available Not Available Not Available levothyro xine 75 mcg tablet TAKE 1 TABLET BY MOUTH IN THE MORNING active Not Available Not Available No t Available Unithroid 112 mcg tablet TAKE 1 TABLET BY MOUTH ONCE DAILY active Not Available Not Available No t Available cephalexi n 500 mg capsule 07/07 completed Not Available Not Available Not Available Euthyrox 50 mcg tablet TAKE 1 TABLET BY MOUTH ONCE DAILY IN THE MORNING FOR 30 DAYS 05/29 completed Not Available Not Available Not Available letrozole 2.5 mg tablet TAKE 2 TABLETS BY MOUTH ONCE DAILY FOR 5 DAYS 12/23 completed Not Available Not Available Not Available naproxen 500 mg tablet TAKE 1 TABLET BY MOUTH TWICE DAILY WITH FOOD 05/29 completed Not Available Not Available Not Available [facility]SC Levothyro xine Sodium 09/30 completed Not Available Not Available Not Available Vitals Date Recorded Body weight Body mass index (BMI) Body height Body height Body mass index (BMI) Body weight Systolic blood pressure Diastolic blood pressure Systolic blood pressure Diastolic blood pressure Systolic blood pressure Diastolic blood pressure Systolic blood pressure Diastolic blood pressure Provider Name and Address Organization Details Last Updated DateTime 4 749404. 04415 g 43.1 kg/m2 167.64 cm 167.64 cm 43.1 kg/m2 456960. 16 g 164 mm[Hg] 111 mm[Hg] 168 mm[Hg] 98 mm[Hg] 164 mm[Hg] 111 mm[Hg] 168 mm[Hg] 98 mm[Hg] Gwen Glass [facility] 4 19:31:12 Date Recorded Body weight Body mass index (BMI) Body height Systolic blood pressure Diastolic blood pressure Systolic blood pressure Diastolic blood pressure Provider Name and Address Organization Details Last Updated DateTime 4 349017. 62551 g 42.9 kg/m2 167.64 cm 163 mm[Hg] 88 mm[Hg] 158 mm[Hg] 98 mm[Hg] Gwen Glass [facility] 4 12:44:00 Date Recorded Body height Body mass index (BMI) Body weight Systolic blood pressure Diastolic blood pressure Provider Name and Address Organization Details Last Updated DateTime 07/19/2024 167.64 cm 38.9 kg/m2 139487.7 6 g 145 mm[Hg] 92 mm[Hg] Whitroseann Cabrera [facility] 17:44:11 Social History Question Answer Notes LastModified by Organizat ion Details LastModified Time Tobacco Smoking Status Never Smoker Violet Mac junie, [facility] 12/25/2022 15:25:08 Do You Have An Advance Directive? No [email or web address] Information n ot available 08/01/2021 What Is Your Level Of Alcohol Consumption? None [email or web address] Information not available 08/01/2021 Are You Blind Or Do You Have Difficulty Seeing? No [email or web address] Information n ot available 08/01/2021 What Is Your Level Of Caffeine Consumption? Moderate [email or web address] Information not available 08/01/2021 In The 14 Days Before Symptom Onset, Have You Had Close Contact With A Laboratory-confirm ed COVID-19 While That Case Was Ill? No [email or web address] Information n ot available 08/01/2021 In The 14 Days Before Symptom Onset, Have You Had Close Contact With A Person Who Is Under Investigation For COVID-19 While That Person Was Ill? No [email or web address] Information not available 08/01/2021 Have You Been To An Area Known To Be High Risk For COVID-19? No [email or web address] Information not available 08/01/2021 Are You Deaf Or Do You Have Serious Difficulty Hearing? No Information not available 08/01/2021 What Type Of Diet Are You Following? REGULAR Information n ot available 08/01/2021 What Is The Highest Grade Or Level Of School You Have Completed Or The Highest Degree You Have Received? [id number] Information not available 08/01/2021 What Is Your Occupation? [employer] [email or web address] Information not available 08/01/2021 Are There Any Guns Present In Your Home? No [email or web address] Information not available 08/01/2021 Do You Use Protection During Sex? Always [email or web address] Information not available 08/01/2021 Do You Use Your Seat Belt Or Car Seat Routinely? Yes Information not available 08/01/2021 Do You Have Smoke And Carbon Monoxide Detectors In Your Home? Yes [email or web address] Information not available 08/01/2021 How Much Tobacco Do You Smoke? No [email or web address] Information not available 08/01/2021 Do You Feel Stressed (tense, Restless, Nervous, Or Anxious, Or Unable To Sleep At Night)? [id number] [email or web address] Information not available 08/01/2021 Do You Use Any Illicit Or Recreational Drugs? No [email or web address] Information not available 08/01/2021 Do You Use Sunscreen Routinely? Yes Information not available 08/01/2021 Has Tobacco Cessation Counseling Been Provided? No Information not available 12/25/2022 Have You Used IV Drugs? No [email or web address] Information not available 08/01/2021 Do You Or Have You Ever Used Any Other Forms Of Tobacco Or Nicotine? No [email or web address] Information not available 12/25/2022 Sex: Unknown Functional Status Question Answer Note LastModified by Organizat ion Details LastModified Time Do you have difficulty walking or climbing stairs? No [email or web address] Information not available 12/25/2022 Are you able to walk? YESWOREST [email or web address] Information not available 08/01/2021 Are you able to care for yourself? Yes [email or web address] Information not available 12/25/2022 Do you have difficulty dressing or bathing? No [email or web address] Information not available 12/25/2022 What is your exercise level? Moderate [email or web address] Information not available 08/01/2021 Mental Status None recorded. Family History Relationship Description Onset Age of this Age Resolved Age Notes LastModified by Organization Details LastModified Time Maternal Grandmother Disorder of thyroid gland [email or web address] Not available 08/01 09:54:58 Mother Asthma [email or web address] Not available 08/01/2021 09:54:58 Mother Disorder of thyroid gland [email or web address] Not available 08/01 09:54:58 Paternal Grandmother Heart disease [email or web address] Not available 08/01 09:54:58 Medical History Condition Response Allergies (Food, seasonal, environmental ) Y Other Y Drug/Latex Allergies/Reactions N Blood Transfusion N Breast Cancer N Dermatologic Disorders N Lung Disease N Defects or Inherited Disease N Breast Problem N Gestational Diabetes N Hematologic disorders N Anesthesia Complications N History of STI N Deep Vein Thrombosis N Polycystic ovary syndrome N Anxiety Disorder N Autoimmune disease N Arthritis N Polyps N Infertility N Acid Reflux (GERD) N History of abnormal pap N Cancer N Varicosities N Stroke N Neurologic/Epilepsy N Endometriosis N High Cholesterol N Fibromyalgia N Headaches N Kidney Disease N Heart Problems N Thyroid Problems Y Kidney or Bladder Problems N GI Problems N Eating Disorder N Anemia N Art (IVF or FET) Y Psychiatric Illness N Ovarian Cancer N Diabetes N Pulmonary (TB, Asthma) N Hepatitis/Liver Disease N No Past Medical History N Eczema N Urinary Tract Infection N Abuse/Domestic Violence N Asthma Y Trauma/Violence N Depression/ depression N Heart Disease N Pre-Eclampsia N Hypertension N Osteoporosis N Thrombophilias N Gynecological History Statement/Question Response Abnormal Pap N Flow Moderate Date of Last Mammogram Date of LMP 10/25/2023 N Was last menstrual period normal Y STIs/STDs N HPV Vaccine N Duration of Flow (days) 5 Current Control Method Are cycles usually normal Y Frequency of Cycle (Q days) 30 Most Recent Bone Density Sexually Active? Y Fertility Issues Age of first menstrual cycle 10 Date of Last Pap Smear 12/24/2023 Sexual Problems? N LMP Definite N Obstetrics History GPAL:G 1 P 0 0 0 0 Type Value Living 0 Total 1 Past Encounters Encounter ID Performer Location Encounter Start Date Encounter Closed Date Diagnosis/Indication Diagnosis SNOMED-CT Code Diagnosis ICD10 Code [id number] Marilyn Willams CNM [facility] [address],[facility] [place] [address] 08/01/2021 09:37:35 08/01/2021 10:46:46 Gynecologic examination 03453342 Z01.419 Trying to conceive 86775 9001 Z31.9 [id number] Marilyn Willams CNM [facility] [address],[facility] [place] [address] 09/28/2021 11:41:59 09/28/2021 13:27:08 Irregular periods 63957113 N92.6 [id number] Byron Yoo MD [facility] [address],[place] [address] 05/29/2022 18:04:01 05/30/2022 14:41:42 Pain in pelvis 44359220 R10.2 [id number] Jennifer Best [facility] [address],[place] [address] 06/05/2022 11:27:46 06/05/2022 15:35:50 Pain in pelvis 92549541 R10.2 [id number] Byron Yoo MD [facility] [address],[place] [address] 06/08/2022 09:52:38 06/10/2022 14:49:57 Pain in pelvis 54150522 R10.2 [id number] Marilyn Willams [facility] [address],[place] [address] 12/25/2022 15:25:03 12/25/2022 16:05:16 Anovulation 13710003 N97.0 Trying to conceive 40102 9001 Z31.9 [id number] Marilyn iWllams [facility] [address],[place] [address] 10/01/2023 09:21:07 10/01/2023 10:06:18 Female infertility 8874440 N97.9 [id number] [facility] [address],[place] [address] 11/03/2023 13:13:06 11/03/2023 14:31:24 Female infertility 8088241 N97.9 [id number] [facility] [address],[place] [address] 11/05/2023 17:08:01 11/06/2023 01:52:22 Female infertility 0920838 N97.9 [id number] [facility] [address],[place] [address] 11/07/2023 13:22:05 11/07/2023 14:14:07 Female infertility 2663247 N97.9 [id number] Clari Vanessa [facility] [address],[place] [address] 11/10/2023 09:06:55 11/10/2023 09:55:03 Female infertility 4656212 N97.9 [id number] Gwen Glass [facility] [address],[place] [address] 11/10/2023 14:49:18 11/11/2023 04:39:13 Trying to conceive 953418942 Z31.9 [id number] Marilyn Willams [facility] [address],[place] [address] 11/11/2023 09:27:30 11/11/2023 12:01:34 Artificial insemination 66533718 Z31.83 [id number] [facility] [address],[place] [address] 12/11/2023 13:44:02 12/11/2023 14:19:57 screening 321341945 Z36.87 Z3A.01 [id number] [facility] [address],[place] [address] 12/24/2023 12:27:22 12/24/2023 13:10:24 [id number] Marilyn Willams [facility] [address],[place] [address] 12/24/2023 13:42:41 12/24/2023 14:34:29 Amenorrhea 33099585 N91.2 Venereal d isease screening 103074094 Z11.3 [id number] Clari [facility] [address],[place] [address] 01/21/2024 14:19:32 01/21/2024 15:00:47 screening 448162745 Z36.82 Z3A.12 [id number] Gwen Glass [facility] [address],[place] [address] 01/21/2024 14:19:55 01/21/2024 16:04:53 screening 483974814 Z36.89 Gestation period, 12 weeks 66985737 Z3A.12 [id number] Marilyn Willams [facility] [address],[place] [address] 02/18/2024 14:22:50 02/18/2024 14:46:21 Routine care 289351844 Z34.92 [id number] [facility] [address],[place] [address] 03/17/2024 15:48:46 03/17/2024 17:08:17 screening for malformation 375137362 Z36.3 Z3A.20 [id number] Marilyn Willams [facility] [address],[place] [address] 03/17/2024 15:50:09 03/18/2024 09:47:30 Routine care 724357778 Z34.92 [id number] Marilyn Willams [facility] [address],[place] [address] 04/14/2024 12:21:48 04/14/2024 13:42:54 Routine care 167092923 Z34.92 [id number] [facility] [address],[place] [address] 05/12/2024 09:34:59 05/12/2024 10:09:12 Uterine size for dates discrepancy 052392150 O26.843 O09.813 Z3A.28 [id number] Marilyn Willams [facility] [address],[place] [address] 05/12/2024 09:35:15 05/12/2024 10:37:46 Gestation period, 28 weeks 08064098 Z3A.28 [id number] Marilyn Willams [facility] [address] [place] [address] 05/26/2024 13:59:11 05/26/2024 14:39:09 Routine care 466390143 Z34.92 [id number] [facility] [address] [place] [address] 06/09/2024 13:18:21 06/09/2024 13:58:19 IVF - in-vitro fertilization 5025601807 2102 O09.819 O99.213 Z3A.32 [id number] Marilyn Willams [facility] [address],[place] [address] 06/09/2024 13:18:51 06/09/2024 14:52:39 Gestation period, 32 weeks 9834139 Z3A.32 [id number] [facility] [address],[place] [address] 06/30/2024 11:34:33 06/30/2024 12:14:08 Maternal obesity complicating , childbirth and the puerperium, antepartum 7363762246 07 O99.213 Z3A.35 [id number] Marilyn Willams [facility] [address],[place] [address] 06/30/2024 11:35:18 06/30/2024 16:28:29 Gestation period, 35 weeks 98336990 Z3A.35 [id number] Gwen Glass [facility] [address],[place] [address] 07/02/2024 11:29:26 07/05/2024 09:39:47 care: history of infertility 627726620 O09.03 [id number] Marilyn Willams [facility] [address],[place] [address] 07/02/2024 11:29:43 07/02/2024 13:24:04 Routine care 261079343 Z34.92 [id number] Clari Vanessa [facility] [address] [place] [address] 07/07/2024 11:28:23 07/07/2024 12:08:49 IVF - in-vitro fertilization 5559245309 2102 O99.213 O09.813 Z3A.[address] [id number] [facility] [address],[place] [address] 07/07/2024 11:28:40 07/07/2024 15:56:24 01621366 Z33.1 - induced hypertension 23819788 O13.9 Z3A.36 [id number] Marilyn Willams CNM [facility] [address] [address] 07/07/2024 11:28:54 07/07/2024 13:59:28 Routine care 687480360 Z34.92 Health Concerns Section Related Observation LastModified by Organization Detai ls LastModified Time None Recorded Concern Status LastModified by Organization Details LastModified Time None Recorded Advance Directives Directive N: Payers Encounter Date Sequence Insurance Name Policy Number Policy Leos Covered Member ID Leos Member ID Guarantor Name 07/02/2024 1 [employer] - [employer] [id number] Gold Villatoro [id number] Annabel Villatoro 07/07/2024 1 [facility] [id number] Gold Villatoro [id number] Annabelujan Villatoro 07/07/2024 1 [employer] [id number] Gold Villatoro [id number] Annabel Villatoro 07/07/2024 1 [employer] [id number] Gold Villatoro [id number] Annabel Villatoro OBGyn Episode Ob Episode Information Episode Created Date Number of Fetuses Patient Bloodtype Patient rh Status Prepregnancy Weight lbs Domestic Partner Domestic Partner Phone Father Name Web Site Manager Status 01/21/20 24 1 B Positive 237 Gold Bautista on CLOSED Fetus Data First Name Last Name Admitted to NICU Weight (g) Sex Living Outcome Pediatric Complications Fetus ID Race Codes Race Delivery Type Tommy 2778.25 1 M [id number] Primary Problems Problem Notes +GBS Problem Name Start Date End Date Resolution Snomed Code Not e Disorder of thyroid gland 64561794 followed by endocrine on unithroid daily Primary infertility 888224352 Artificial insemination 731464 08 IUI by Sp Eugene Calculation EUGENE Calculation Method Initial Eugene Date Initial Exam Date Initial Exam Provider Initial Ultrasound Date Last Menstrual Period Date Ultra Sound Weeks Gestation Conception by IVF Embryo Age at Transfer Date of Transfer 07/31/1912/24/19 24 12/11/2023 10/25/2023 6 Eighteen To Twenty Week Eugene Update Ultra Sound Date Fundal Height At Umbil Quickening Date Ultra Sound Latest Weeks Gestation Final Eugene Confirmed By Final Eugnee Confirmed Date Final Eugene Date Ultra Sound Latest Days Gestation 01/21/20 24 12 [email or web address] 01/21/2024 07/31/19 25 3 Pre- Flowsheet Flowsheet Date 01/21/2024 Castaneda Score Blood Edema Fundus Height Fundus Units Glucose Ketones Leukocytes Nitrite Labor Signs Protein Cervic Dilation Cervic Effacement Cervic Station none Type Weight in lbs Pre/Post Dialysis Refused Weight 236.541349711940 BP Diastolic BP Location Tested BP Systolic BP Type 84 131 Fetus Heart Rate Present Fetus Movement A No Comments Patient is having round liga ment pain. reviewed US, precautions and education, IUI done in the office, on pnv, sees an quality assurance advisor regularly, labs with [facility] today, routine care Flowsheet Date 02/18/2024 Castaneda Score Blood Edema Fundus Height Fundus Units Glucose Ketones Leukocytes Nitrite Labor Signs Protein Cervic Dilation Cervic Effacement Cervic Station trace Type Weight in lbs Pre/Post Dialysis Refused Weight [id number] BP Diastolic BP Location Tested BP Systolic BP Type 78 133 Fetus Heart Rate Present A 154 Present Fetus Movement A Yes Comments Patient is having some pain and swelling. 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 and will look at classes, f/u 4 weeks with anatomy scan Flowsheet Date 03/17/2024 Castaneda Score Blood Edema Fundus Height Fundus Units Glucose Ketones Leukocytes Nitrite Labor Signs Protein Cervic Dilation Cervic Effacement Cervic Station Type Weight in lbs Pre/Post Dialysis Refused BP Diastolic BP Location Tested BP Systolic BP Type Fetus Heart Rate Present Fetus Movement Comments Flowsheet Date 03/17/2024 Castaneda Score Blood Edema Fundus Height Fundus Units Glucose Ketones Leukocytes Nitrite Labor Signs Protein Cervic Dilation Cervic Effacement Cervic Station trace Type Weight in lbs Pre/Post Dialysis Refused [id number] BP Diastolic BP Location Tested BP Systolic BP Type 76 117 Fetus Heart Rate Present Fetus Movement A Yes Comments Patient states that is havin g discharge and swelling. reviewed precautions and education, anatomy complete efw 44%, doing well +FM, f/u 4 weeks, ok to start looking at birthing classes Flowsheet Date 04/14/2024 Castaneda Score Blood Edema Fundus Height Fundus Units Glucose Ketones Leukocytes Nitrite Labor Signs Protein Cervic Dilation Cervic Effacement Cervic Station trace 28 cm Type Weight in lbs Pre/Post Dialysis Refused [id number] BP Diastolic BP Location Tested BP Systolic BP Type 61 136 Fetus Heart Rate Present A 136 Fetus Movement A Yes Comments Patient is having some pain, BH contractions and swelling. +FM, plan gct and growth next visit, education and precautionsfamily dr for peds, wants circumcision, f/u 4 weeks Flowsheet Date 05/12/2024 Castaneda Score Blood Edema Fundus Height Fundus Units Glucose Ketones Leukocytes Nitrite Labor Signs Protein Cervic Dilation Cervic Effacement Cervic Station Type Weight in lbs Pre/Post Dialysis Refused BP Diastolic BP Location Tested BP Systolic BP Type Fetus Heart Rate Present Fetus Movement Comments Flowsheet Date 05/12/2024 Castaneda Score Blood Edema Fundus Height Fundus Units Glucose Ketones Leukocytes Nitrite Labor Signs Protein Cervic Dilation Cervic Effacement Cervic Station trace Type Weight in lbs Pre/Post Dialysis Refused 253.391322154699 BP Diastolic BP Location Tested BP Systolic BP Type 74 131 Fetus Heart Rate Present Fetus Movement A Yes Comments Patient is having some pelvi c pain and swelling, gct today +FM,plans tdap unsure about rsv, education and precautions efw 39% Flowsheet Date 05/26/2024 Castaneda Score Blood Edema Fundus Height Fundus Units Glucose Ketones Leukocytes Nitrite Labor Signs Protein Cervic Dilation Cervic Effacement Cervic Station trace 31 cm Type Weight in lbs Pre/Post Dialysis Refused 253.921125500193 BP Diastolic BP Location Tested BP Systolic BP Type 78 129 Fetus Heart Rate Present A 147 Fetus Movement A Yes Comments Patient is having BH contrac tions and swelling. reviewed education and precautions, +FM rsv handout given for 32 weeks, f/u 2 weeks Flowsheet Date 06/09/2024 Castaneda Score Blood Edema Fundus Height Fundus Units Glucose Ketones Leukocytes Nitrite Labor Signs Protein Cervic Dilation Cervic Effacement Cervic Station Type Weight in lbs Pre/Post Dialysis Refused BP Diastolic BP Location Tested BP Systolic BP Type Fetus Heart Rate Present Fetus Movement Comments Flowsheet Date 06/09/2024 Castaneda Score Blood Edema Fundus Height Fundus Units Glucose Ketones Leukocytes Nitrite Labor Signs Protein Cervic Dilation Cervic Effacement Cervic Station neg trace Type Weight in lbs Pre/Post Dialysis Refused [id number] BP Diastolic BP Location Tested BP Systolic BP Type 84 133 Fetus Heart Rate Present Fetus Movement A Yes Comments Patient is having headache, BH contractions and swelling. CHERYL wnl, breech, EFW 32%, doing well, exercises on spinning babies will f/u next week, call fore preadmit Flowsheet Date 06/30/2024 Castaneda Score Blood Edema Fundus Height Fundus Units Glucose Ketones Leukocytes Nitrite Labor Signs Protein Cervic Dilation Cervic Effacement Cervic Station Type Weight in lbs Pre/Post Dialysis Refused BP Diastolic BP Location Tested BP Systolic BP Type Fetus Heart Rate Present Fetus Movement Comments Flowsheet Date 06/30/2024 Castaneda Score Blood Edema Fundus Height Fundus Units Glucose Ketones Leukocytes Nitrite Labor Signs Protein Cervic Dilation Cervic Effacement Cervic Station Type Weight in lbs Pre/Post Dialysis Refused 267.955692391794 BP Diastolic BP Location Tested BP Systolic BP Type 85 148 Fetus Heart Rate Present Fetus Movement A Yes Comments jackie breech, discussed prec autions and education +FM, breech continue spinning babies, to ld for labs increased bp today no sxs f/u one week Flowsheet Date 07/02/2024 Castaneda Score Blood Edema Fundus Height Fundus Units Glucose Ketones Leukocytes Nitrite Labor Signs Protein Cervic Dilation Cervic Effacement Cervic Station Type Weight in lbs Pre/Post Dialysis Refused Weight 267.285072411600 BP Diastolic BP Location Tested BP Systolic BP Type 111 164 98 168 Fetus Heart Rate Present Fetus Movement Comments Flowsheet Date 07/02/2024 Castaneda Score Blood Edema Fundus Height Fundus Units Glucose Ketones Leukocytes Nitrite Labor Signs Protein Cervic Dilation Cervic Effacement Cervic Station trace Type Weight in lbs Pre/Post Dialysis Refused 267.186939979980 BP Diastolic BP Location Tested BP Systolic BP Type 111 164 98 168 Fetus Heart Rate Present Fetus Movement A Yes Comments Patient is having headache a nd swelling. carrero resolves with tylenol discussed preeclampsia, breech will send to ld for labs and will make plan for 37 week delivery Flowsheet Date 07/07/2024 Castaneda Score Blood Edema Fundus Height Fundus Units Glucose Ketones Leukocytes Nitrite Labor Signs Protein Cervic Dilation Cervic Effacement Cervic Station Type Weight in lbs Pre/Post Dialysis Refused BP Diastolic BP Location Tested BP Systolic BP Type Fetus Heart Rate Present Fetus Movement Comments Flowsheet Date 07/07/2024 Castaneda Score Blood Edema Fundus Height Fundus Units Glucose Ketones Leukocytes Nitrite Labor Signs Protein Cervic Dilation Cervic Effacement Cervic Station Type Weight in lbs Pre/Post Dialysis Refused BP Diastolic BP Location Tested BP Systolic BP Type Fetus Heart Rate Present Fetus Movement Comments Flowsheet Date 07/07/2024 Castaneda Score Blood Edema Fundus Height Fundus Units Glucose Ketones Leukocytes Nitrite Labor Signs Protein Cervic Dilation Cervic Effacement Cervic Station none Type Weight in lbs Pre/Post Dialysis Refused 266.562525749977 BP Diastolic BP Location Tested BP Systolic BP Type 88 163 98 158 Fetus Heart Rate Present Fetus Movement A Yes Comments Patient is having contractio ns. to ld for pih eval Flowsheet Date 07/19/2024 Castaneda Score Blood Edema Fundus Height Fundus Units Glucose Ketones Leukocytes Nitrite Labor Signs Protein Cervic Dilation Cervic Effacement Cervic Station Type Weight in lbs Pre/Post Dialysis Refused Weight 241.787170487939 BP Diastolic BP Location Tested BP Systolic BP Type 92 L arm 145 sitting Fetus Heart Rate Present Fetus Movement Comments Menstrual History Last Menstrual Date Menses Monthly On Bcp Conception Prior Menses Frequency Hcg Plus Date Menarche Onset Age 0310/25/2023 Genetic Screening And Infection History Question Response Note Mental Retardation/Autism false Patient's Age Will Be 35 Yea rs Or Older At Estimated Date of Delivery false Thalassemia (Namibian, Faroese, Mediterranean, Or Background): MCV < 80 false Neural Tube Defect (Meningom yelocele, Spina Bifida, Or Anencephaly) false Congenital Heart Defect false Down Syndrome false Kwadwo-Sachs (eg, Tenriism, Cajun, Spanish-[place]) f alse Dorita Disease false Sickle Cell Disease Or Trait () false Hemophilia Or Other Blood Disorders false Muscular Dystrophy false Cystic Fibrosis false Spencer's Chorea false Intellectual Disability/Autism false If Yes, Was Person Tested For Fragile X? false Other Inherited Genetic Or Chromosomal Disorder false Maternal Metabolic Disorder (eg, Type 1 Diabetes, PKU) false Patient Or Baby's Father Had A Child With Defects Not Listed Above false Recurrent Loss, Or A Stillbirth false Medications (including Suppl ements, Vitamins, Herbs, OTC Drugs), Illicit/Recreational Drugs, Alcohol false pnv unithroid, probiotic If Yes, Agent(s) And Strength/Dosage false Any Other Genetic History false Live With Someone With TB Or Exposed To TB false Patient Or Partner Has History Of Genital Herpes false Rash Or Viral Illness Since Last Menstrual Perio d false History Of STD, Gonorrhea, Chlamydia, HPV, Syphi lis false Other Infection History false History of HIV false History of Hepatitis false Prior GBS-infected child false Hemoglobinopathy Or Carrier false Other Structural Defect false Recent Travel History Outside of Country false Delivery Information Delivery Date Delivery Type Labor Anesthesia Weeks Gestation Incision Type Labor Labor Length Hrs Delivered By Post Complications Tubal Sterilization Discharge Date Comments 4 37.2 Byron Yoo MD Discharge Information Feeding Method Contraceptive Method Maternal HG B and HCT Levels
--- OUTSIDE RECORDS SUMMARY | 2024-07-19 16:51 | XMS_ITS | Data Portability ---
Author Organization [facility] [place], Main Office Address [address] [place] [id number] Care Team Providers Care Strapper And Buffer Name Role Phone ARIEL VALENTE Primary Care Provider [phone] Assessment Encounter Date Assessment Date Assessment LastModified by Organization Details LastModified Time 06/17/2023 06/17/2023 Patient trying to conceive, so declines Lipid panel and CBC. Not available 06/17/2023 09:25:17 Plan of Treatment Reminders Order Date Submit Date Provider Last Modified By Organization Details Last Modified Time Details Appointments None recorded. Lab HbA1c (hemoglobin A1c), blood 2022 023 [facility] ([facility]), [address] [place], [address], 3 13:51:21 insulin, serum 2022 023 [facility] ([facility]), [address] [place], [address], 3 11:13:39 T3, free, serum or plasma 2022 023 [facility] ([facility]), [address] [place], [address], 3 12:19:33 TSH + free T4, serum 2022 023 [facility] ([facility]), [address] [place], [address], 3 13:51:22 CMP, serum or plasma 2022 023 [facility] ([facility]), [address] [place], [address], 3 12:05:41 TSH + free T4, serum [address] ([facility] Scheduling), [address] [place], [address], 3 08:10:16 TSH, serum or plasma [address] ([facility]uling), [address] [place], [address], 4 08:16:51 T3, free, serum or plasma [address] ([facility] Scheduling), [address] [place], [address], 4 08:16:51 T4, free, serum [address] ([facility] Scheduling), [address] [place], [address], 4 08:16:51 Referral endocrinolo gy referral - Please call patient to schedule an appointment . 2023 024 [email or web address] [place], [address] , [place], [address], 4 08:49:44 Procedures None recorded. Surgeries None recorded. Imaging None recorded. Medication Orders Unithroid 88 mcg tablet [address] [facility], [address] [facility], [place], [address], 4 09:59:34 Patient TargetsNo targets recorded. Patient Instructions Encounter Date Encounter Id Patient Instructions Last Modified By Organization Details Last Modified Time 04/15/2023 [id number] fu in 2 mo for check up and lab review. Not available 04/15/2023 12:23:42 06/17/2023 [id number] Fu as needed [email or web address] Not available 09:27:33 01/14/2024 [id number] Personalized Hea lt Plan and Screening Recommendations Advance Directives - Do you have one? Advance Directives - Do we have your advance directive on file in your health record? Primary Prevention/Interven tion (prevents or decreases the chance of common diseases from occurring) Smoking Risk: Alcohol Misuse Screening: Weight: Physical activity: Nutrition: Fall Risk (screened today): Vaccines Pneumococcal: Influenza: Chronic Disease Risks Stroke: I have no recommendations Act juanita diagnosis, Continue current treatment plan Heart Attack: I have no recommendations Act juanita diagnosis, Continue current treatment plan Clogging of the Arteries: I have no recommendations Act juanita diagnosis, Continue current treatment plan Diabetes: Secondary Prevention/Interven tion (detects treatable diseases before they may cause symptoms, disability, or ) Breast Cancer Screening with mammogram: Cervical/Uterine/Ov narciso Cancer Screening: Osteoporosis Screening: Date Screening Last Performed: Colon Cancer Screening: Date Screening Last Performed: Eye Disease Screening: Dementia Risk: Depression Screening: mark Not available 01/14/2024 10:18:32 Reason for Referral Endocrinology Referral for H ypothyroidism Please call patient to schedule an appointment. Referring Physician: Ariel Valente, Family Medicine, Encounter Date: 10/15/2023 Results Created Date Observation Date Name Description Value Unit Range Abnormal Flag Note LastModifiedBy Organization Detail LastModifiedTime 12/28/1912/27/2022 COMP MET PANEL /LIVE R sodium 139 mmol/ L 137-14 5 Not Available [facility] (Lab) [address] [place], [address], 12/27/2022 10:25:53 12/28/19 23 12/27/2022 COMP MET PANEL /LIVE R potassium 3.8 mmol/ L 3.5-5. 1 Not Available [facility] (Lab) [address] [place], [address], 12/27/2022 10:25:53 12/28/19 23 12/27/2022 COMP MET PANEL /LIVE R chloride 104 mmol/ L 98-107 Not Available [facility] (Lab) [address] [place], [address], 12/27/2022 10:25:53 12/28/19 23 12/27/2022 COMP MET PANEL /LIVE R carbon dioxide 25 mmol/ L 22-30 Not Available [facility] (Lab) [address] [place], [address], 12/27/2022 10:25:53 12/28/19 23 12/27/2022 COMP MET PANEL /LIVE R anion gap 13.8 mmol/ L 14-22 low Not Available [facility] (Lab) [address] [place], [address], 12/27/2022 10:25:53 12/28/19 23 12/27/2022 COMP MET PANEL /LIVE R glucose 98 mg/dL 70-99 Not Available [facility] (Lab) [address] [place], [address], 12/27/2022 10:25:53 12/28/19 23 12/27/2022 COMP MET PANEL /LIVE R BUN 14 mg/dL 8-19 Not Available [facility] (Lab) [address] [place], [address], 12/27/2022 10:25:53 12/28/19 23 12/27/2022 COMP MET PANEL /LIVE R creatinine 0.69 mg/dL 0.66-1 .25 Not Available [facility] (Lab) [address] [place], [address], 12/27/2022 10:25:53 12/28/19 23 12/27/2022 COMP MET PANEL /LIVE R GFR >60 Refer ence Range : [place] ge GFR Healt hy Adult : >60 mL/mi n/1.7 3 m2 Chron ic Kidne y Disea se: 15-60 mL/mi n/1.7 3 m2 Kidne y Failu re: <15/m L/min /1.73 m2 www.n iddk. nih.g ov The MDRD study equat ion has not been valid ated in child tania <18 years of age; pregn ant women ; the elder ly >85 years of age; or in some racia l or ethni c subgr oups, such as Hispa nics. Outsi de the valid ated lashonda eters , estim ated GFR is less accur ate, requi ring clini maye judgm ent on a case- by-ca se basis . Clini maye inter preta tion for other races and ages must be made by the clini manjinder. The MDRD study equat ion has not been valid ated for the evalu ation of serum creat inine relat ed to nutri lyndsay l statu s or medic ation usage . For perso ns <18 years of age, a pedia tric GFR calcu lator is avail able on the [facility] websi te: https ://ww w.kid marcelino.o rg/pr ofess ional s/kdo qi/gf r_cal culat or Not Available [facility] (Lab) [address] [place], [address], 12/27/2022 10:25:53 12/28/19 23 12/27/2022 COMP MET PANEL /LIVE R alkaline phosphatase 47 U/L 38-126 Not Available [facility] (Lab) [address] [place], [address], 12/27/2022 10:25:53 12/28/19 23 12/27/2022 COMP MET PANEL /LIVE R alanine aminotransfe rase 28 U/L 0-35 Not Available [facility] (Lab) [address] [place], [address], 12/27/2022 10:25:53 12/28/19 23 12/27/2022 COMP MET PANEL /LIVE R aspartate aminotransfe rase 29 U/L 15-37 Not Available [facility] (Lab) [address] [place], [address], 12/27/2022 10:25:53 12/28/19 23 12/27/2022 COMP MET PANEL /LIVE R bilirubin, total 0.40 mg/dL 0.20-1 .30 Not Available [facility] (Lab) [address] [place], [address], 12/27/2022 10:25:53 12/28/19 23 12/27/2022 COMP MET PANEL /LIVE R bilirubin, conjugated (direct) 0.00 mg/dL 0.00-0 .30 Not Available [facility] (Lab) [address] [place], [address], 12/27/2022 10:25:53 12/28/19 23 12/27/2022 COMP MET PANEL /LIVE R biliurubin,u ncong. (indirect) 0.20 mg/dL 0.00-1 .1 Not Available [facility] (Lab) [address] [place], [address], 12/27/2022 10:25:53 12/28/19 23 12/27/2022 COMP MET PANEL /LIVE R calcium 9.0 mg/dL 8.4-10 .2 Not Available [facility] (Lab) [address] [place], [address], 12/27/2022 10:25:53 12/28/19 23 12/27/2022 COMP MET PANEL /LIVE R total protein 7.0 g/dL 6.3-8. 2 Not Available [facility] (Lab) [address] [place], [address], 12/27/2022 10:25:53 12/28/19 23 12/27/2022 COMP MET PANEL /LIVE R albumin 4.3 g/dL 3.4-5. 0 Not Available [facility] (Lab) [address] [place], [address], 12/27/2022 10:25:53 12/28/19 23 12/27/2022 COMP MET PANEL /LIVE R globulin 2.7 g/dL 2.6-4. 2 Not Available [facility] (Lab) [address] [place], [address], 12/27/2022 10:25:53 12/28/19 23 12/27/2022 COMP MET PANEL /LIVE R A/G ratio 1.6 ratio 1.0-2. 0 Not Available [facility] (Lab) [address] [place], [address], 12/27/2022 10:25:53 12/28/19 23 12/27/2022 T4 FREE free T4 1.20 NG/dL 0.78-2 .19 Not Available [facility] (Lab) [address] [place], [address], 12/27/2022 10:57:07 12/28/19 23 12/27/2022 T3 FREE free T3 3.9 pg/mL 2.77-5 .27 Not Available [facility] (Lab) [address] [place], [address], 12/27/2022 10:57:13 12/28/19 23 12/27/2022 TSH thyroid-stim ulating hormone 3.630 uIU/m L 0.465- 4.680 Not Available [facility] (Lab) [address] [place], [address], 12/27/2022 10:58:07 12/28/19 23 12/27/2022 VITAM IN B12 (LAURIE ANNAMARIE ) vb12 642 pg/mL 239-93 1 Not Available [facility] (Lab) [address] [place], [address], 12/27/2022 11:47:53 12/28/19 23 12/27/2022 FOLAT E, SERUM /PLAS MA folate >20.0 NG/mL 2.76-2 0.0 Not Available [facility] (Lab) [address] [place], [address], 12/27/2022 19:25:20 12/28/19 23 12/28/2022 THYRO ID PEROX IDASE (TPO) AB thyroid peroxidase (tpo) Ab 86 IU/mL 0-34 high Perfo rmed at: [facility] [address] [id number] Lab Direc tor: Mathew bryant PhD, Phone : [phone] Not Available [facility] (Lab) [address] [place], [address], 12/28/2022 08:17:24 04/17/20 23 04/17/2023 COMPR EHENS JUANITA METAB OLIC PANEL sodium 139 mmol/ L 137-14 5 Not Available [facility] (Lab) [address] [place], [address], 04/17/2023 12:05:41 04/17/20 23 04/17/2023 COMPR EHENS JUANITA METAB OLIC PANEL potassium 3.9 mmol/ L 3.5-5. 1 Not Available [facility] (Lab) [address] [place], [address], 04/17/2023 12:05:41 04/17/20 23 04/17/2023 COMPR EHENS JUANITA METAB OLIC PANEL chloride 104 mmol/ L 98-107 Not Available [facility] (Lab) [address] [place], [address], 04/17/2023 12:05:41 04/17/20 23 04/17/2023 COMPR EHENS JUANITA METAB OLIC PANEL carbon dioxide 28 mmol/ L 22-30 Not Available [facility] (Lab) [address] [place], [address], 04/17/2023 12:05:41 04/17/20 23 04/17/2023 COMPR EHENS JUANITA METAB OLIC PANEL anion gap 10.9 mmol/ L 14-22 low Not Available [facility] (Lab) [address] [place], [address], 04/17/2023 12:05:41 04/17/20 23 04/17/2023 COMPR EHENS JUANITA METAB OLIC PANEL glucose 89 mg/dL 70-99 Not Available [facility] (Lab) [address] [place], [address], 04/17/2023 12:05:41 04/17/20 23 04/17/2023 COMPR EHENS JUANITA METAB OLIC PANEL BUN 10 mg/dL 8-19 Not Available [facility] (Lab) [address] [place], [address], 04/17/2023 12:05:41 04/17/20 23 04/17/2023 COMPR EHENS JUANITA METAB OLIC PANEL creatinine 0.71 mg/dL 0.66-1 .25 Not Available [facility] (Lab) [address] [place], [address], 04/17/2023 12:05:41 04/17/20 23 04/17/2023 COMPR EHENS JUANITA METAB OLIC PANEL GFR >60 Refer ence Range : [place] GFR Healt hy Adult : >60 mL/mi n/1.7 3 m2 Chron ic Kidne y Disea se: 15-60 mL/mi n/1.7 3 m2 Kidne y Failu re: <15/m L/min /1.73 m2 www.n iddk. nih.g ov The MDRD study equat ion has not been valid ated in child tania <18 years of age; pregn ant women ; the elder ly >85 years of age; or in some racia l or ethni c subgr oups, such as Hispa nics. Outsi de the valid ated lashonda eters , estim ated GFR is less accur ate, requi ring clini maye judgm ent on a case- by-ca se basis . Clini maye inter preta tion for other races and ages must be made by the clini manjinder. The MDRD study equat ion has not been valid ated for the evalu ation of serum creat inine relat ed to nutri lyndsay l statu s or medic ation usage . For perso ns <18 years of age, a pedia tric GFR calcu lator is avail able on the [facility] websi te: https ://ww w.kid marcelino.o rg/pr ofess ional s/kdo qi/gf r_cal culat or Not Available [facility] (Lab) [address] [place], [address], 04/17/2023 12:05:41 04/17/20 23 04/17/2023 COMPR EHENS JUANITA METAB OLIC PANEL alkaline phosphatase 38 U/L 38-126 Not Available [facility] (Lab) [address] [place], [address], 04/17/2023 12:05:41 04/17/20 23 04/17/2023 COMPR EHENS JUANITA METAB OLIC PANEL alanine aminotransfe rase 22 U/L 0-35 Not Available [facility] (Lab) [address] [place], [address], 04/17/2023 12:05:41 04/17/20 23 04/17/2023 COMPR EHENS JUANITA METAB OLIC PANEL aspartate aminotransfe rase 28 U/L 15-37 Not Available [facility] (Lab) [address] [place], [address], 04/17/2023 12:05:41 04/17/20 23 04/17/2023 COMPR EHENS JUANITA METAB OLIC PANEL bilirubin, total 0.50 mg/dL 0.20-1 .30 Not Available [facility] (Lab) [address] [place], [address], 04/17/2023 12:05:41 04/17/20 23 04/17/2023 COMPR EHENS JUANITA METAB OLIC PANEL calcium 8.8 mg/dL 8.4-10 .2 Not Available [facility] (Lab) [address] [place], [address], 04/17/2023 12:05:41 04/17/20 23 04/17/2023 COMPR EHENS JUANITA METAB OLIC PANEL total protein 7.1 g/dL 6.3-8. 2 Not Available [facility] (Lab) [address] [place], [address], 04/17/2023 12:05:41 04/17/20 23 04/17/2023 COMPR EHENS JUANITA METAB OLIC PANEL albumin 4.4 g/dL 3.4-5. 0 Not Available [facility] (Lab) [address] [place], [address], 04/17/2023 12:05:41 04/17/20 23 04/17/2023 COMPR EHENS JUANITA METAB OLIC PANEL globulin 2.7 g/dL 2.6-4. 2 Not Available [facility] (Lab) [address] [place], [address], 04/17/2023 12:05:41 04/17/20 23 04/17/2023 COMPR EHENS JUANITA METAB OLIC PANEL A/G ratio 1.6 ratio 1.0-2. 0 Not Available [facility] (Lab) [address] [place], [address], 04/17/2023 12:05:41 04/17/20 23 04/17/2023 T3 FREE free T3 2.6 pg/mL 2.77-5 .27 low Not Available [facility] (Lab) [address] [place], [address], 04/17/2023 12:19:33 04/17/20 23 04/17/2023 T4 FREE free T4 1.29 NG/dL 0.78-2 .19 Not Available [facility] (Lab) [address] [place], [address], 04/17/2023 12:19:35 04/17/2004/17/2023 TSH thyroid-stim ulating hormone 3.580 uIU/m L 0.465- 4.680 Not Available [facility] (Lab) [address] [place], [address], 04/17/2023 12:37:36 04/17/2004/17/2023 HEMOG LOBIN A1C HA1C 5.1 % 4.0-6. 0 Diabe taylor Scree maxim Crite alen: <5.7% Consi stent with absen ce of diabe taylor 5.7-6 .4% Consi stent with incre ased risk for diabe taylor (pred iabet es) >OR=6 .5% Consi stent with diabe taylor REFER ENCE: Diabe taylor Care 2016, 39(Guan ppl.1 ):s13 -s22 Not Available [facility] (Lab) [address] [place], [address], 04/17/2023 12:56:01 04/17/20 23 04/18/2023 INSUL IN insulin 22.5 uIU/m L 2.6-24 .9 Perfo rmed at: - [facility] [address] [place], [place] [id number] [facility] Lab Direc tor: Mathew bryant PhD, Phone : [phone] Not Available [facility] (Lab) [address] [place], [address], 04/18/2023 11:13:39 Result Notes None recorded. Problems Name Problem SNOMED Code Status Onset Date Resolution Date Notes Provider Name and Address Organization Details Recorded Time Thyroid nodule 438837332 Active 2021 Not Available [facility] 00:27:24 Hypothyroidis m 30541493 Active 03/29/ 2022 Not Available [facility] 3 00:27:24 Impaired fasting glycemia 003159782 Active 2022 Mary Paulino MD [address] [facility] [address], [place], [address] , [facility] [employer] [facility] 3 16:14:11 Hypothyroidis m 23711567 Active 2021 [facility] 3 10:19:14 Hyperglycemia 19662309 Active 2022 [facility] [employer] [facility] 3 10:19:14 Problem Notes None recorded. Procedures Surgical History Date Name Laterality Status Provider Name and Address Organization Details Recorded Time 07/30/2021 Date of Last Pap Smear completed Christy Hannah [facility] 04/16/2023 10:19:15 Imaging Results None recorded. Procedure Notes None recorded. Medical Equipment None Reported. Allergies Allergen ID Allergen Name Allergen Category Reaction Reaction Severity Criticality Documentation Date Start Date Code Code System Note Provider Name and Address Organization Details Recorded Time 22368 amoxicill in medicatio n hives itching rash moderate moderate moderate high 04/15/2023 723 RxNorm [facility] 3 10:19:15 Medications Name Sig Start Date Stop Date Status Note LastModified by Organization Details LastModified Time liothyronine 5 mcg tablet TAKE 1 TABLET BY MOUTH ONCE DAILY AT NOON 10/14 completed Not Available Not Available Not Available levothyroxin e 75 mcg tablet TAKE 1 TABLET BY MOUTH IN THE MORNING 04/15 completed Not Available Not Available Not Available Unithroid 112 mcg tablet TAKE 1 TABLET BY MOUTH ONCE DAILY active Not Available Not Available No t Available levothyroxin e 88 mcg tablet TAKE 1 TABLET BY MOUTH ONCE DAILY IN THE MORNING 01/13 completed Not Available Not Available Not Available Euthyrox 50 mcg tablet Take 1 tablet every day by oral route in the morning for 30 days. 10/28 completed Not Available Not Available Not Available letrozole 2.5 mg tablet TAKE 2 TABLETS BY MOUTH ONCE DAILY FOR 5 DAYS 01/13 completed Not Available Not Available Not Available naproxen 500 mg tablet TAKE 1 TABLET BY MOUTH TWICE DAILY WITH FOOD 04/15 completed Not Available Not Available Not Available 2021 active Not Available Not Available Not Avai lable B12 06/17 completed Not Available Not Available Not Available Vitals Date Recorded Body weight Body temperature Heart rate Systolic blood pressure Diastolic blood pressure Provider Name and Address Organization Details Last Updated DateTime 01/24/2023 619166. 99 g 97.8 [degF] 65 /min 115 mm[Hg] 65 mm[Hg] CATRACHITO Mckay [facility] [employer] [facility] 3 15:49:38 Date Recorded Body height Body mass index (BMI) Body weight Body temperature Systolic blood pressure Diastolic blood pressure Provider Name and Address Organization Details Last Updated DateTime 3 165.1 cm 36.9 kg/m2 687384. 71 g 97.5 [degF] 118 mm[Hg] 78 mm[Hg] Christy Hannah [facility] [employer] [facility] 3 10:19:14 Date Recorded Body height Body mass index (BMI) Body weight Body temperature Heart rate Respiratory rate Oxygen saturation Oxygen saturation in Arterial blood by Pulse oximetry Systolic blood pressure Diastolic blood pressure Provider Name and Address Organization Details Last Updated DateTime 3 165.1 cm 38.5 kg/m2 568448. 54 g 96.5 [degF] 78 /min 16 /min 97 % 97 % 142 mm[Hg] 90 mm[Hg] Livia Dailey RN [facility] [employer] [facility] 3 09:08:12 Date Recorded Body height Body mass index (BMI) Body weight Body temperature Heart rate Respiratory rate Oxygen saturation Oxygen saturation in Arterial blood by Pulse oximetry Systolic blood pressure Diastolic blood pressure Provider Name and Address Organization Details Last Updated DateTime 4 165.1 cm 39 kg/m2 215958. 31 g 97.9 [degF] 81 /min 20 /min 98 % 98 % 138 mm[Hg] 90 mm[Hg] Livia Dailey RN [facility] [employer] [facility] 4 09:07:51 Date Recorded Body height Body mass index (BMI) Body weight Body temperature Heart rate Respiratory rate Oxygen saturation Oxygen saturation in Arterial blood by Pulse oximetry Systolic blood pressure Diastolic blood pressure Provider Name and Address Organization Details Last Updated DateTime 4 165.1 cm 39.1 kg/m2 563624. 56 g 97.6 [degF] 77 /min 20 /min 97 % 97 % 140 mm[Hg] 80 mm[Hg] Livia Dailey RN [facility] [employer] [facility] 4 10:02:03 Social History Question Answer Notes LastModified by Organization Details LastModified Time Tobacco Smoking Status Never Smoker Livia Dailey RN [facility], [facility] [employer] [facility] 04/15/2023 11:56:31 Do You Have An Advance Directive? No Information not available 04/15/2023 What Is Your Level Of Alcohol Consumption? Occasional Information not available 04/15/2023 How Many Years Have You Consumed Alcohol? 2 Information not available 04/15/2023 Is Blood Transfusion Acceptable In An Emergency? Yes Information not available 04/15/2023 What Is Your Level Of Caffeine Consumption? Moderate Information not available 04/15/2023 What Is Your Code Status? Full Code Information not available 06/17/2023 In The 14 Days Before Symptom Onset, Have You Had Close Contact With A Laboratory-conf irmed COVID-19 While That Case Was Ill? No Information not available 04/15/2023 In The 14 Days Before Symptom Onset, Have You Had Close Contact With A Person Who Is Under Investigation For COVID-19 While That Person Was Ill? No Information not available 04/15/2023 Are You Currently Employed? Yes Information not available 04/15/2023 What Type Of Diet Are You Following? REGULAR Calorie Counting Information not available 04/15/2023 What Is The Highest Grade Or Level Of School You Have Completed Or The Highest Degree You Have Received? [id number] [employer] Information not available 04/15/2023 What Is Your Occupation? [employer] Information not available 04/15/2023 How Many Days Of Moderate To Strenuous Exercise, Like A Brisk Walk, Did You Do In The Last 7 Days? 4 Information not available 10/15/2023 On Those Days That You Engage In Moderate To Strenuous Exercise, How Many Minutes, On Average, Do You Exercise? 30 Information not available 10/15/2023 Have There Been Any Changes To Your Family Or Social Situation? No Information not available 04/15/2023 What Is The Fluoride Status Of Your Home? Fluoridated Information not available 04/15/2023 Are There Any Guns Present In Your Home? No Information not available 04/15/2023 Do You Use Insect Repellent Routinely? Yes Information not available 04/15/2023 Where Do You Live? SingleLevelHouse Information not available 04/15/2023 Advance Directive- Providers Has Reviewed Directive And Consents To Follow Them (insert Provider Name With Any Objectives In Notes Field) No Information not available 01/14/2024 Presence Of Domestic Violence No Information not available 01/14/2024 Guns Present In The Home? No Information not available 01/14/2024 Are You Able To Care For Yourself? Yes Information not available 01/14/2024 Are You Blind Or Do Yo Have Difficulty Seeing? No Information not available 01/14/2024 Are You Deaf Or Do You Have Serious Difficulty Hearing? No Information not available 01/14/2024 General Stress Level? Low Information not available 01/14/2024 Live Alone Of With Others? With Others Information not available 01/14/2024 Do You Have A Medical Power Of Doughnut Glazier? No Information not available 04/15/2023 Have You Ever Been Counseled For Unhealthy Alcohol Use? No Information not available 04/15/2023 Do You Have Any Pets? Yes 1 Dog Information not available 04/15/2023 Do You Use Protection During Sex? No Information not available 04/15/2023 What Is Your Relationship Status? Information not available 04/15/2023 Do You Use Your Seat Belt Or Car Seat Routinely? Yes Information not available 04/15/2023 Are You Sexually Active? Yes Information not available 04/15/2023 Do You Have Smoke And Carbon Monoxide Detectors In Your Home? Yes Information not available 04/15/2023 Are You Passively Exposed To Smoke? No Information not available 04/15/2023 Are There Any Smokers In Your House? No Information not available 04/15/2023 Do You Participate In Social Media? Yes Information not available 04/15/2023 What Types Of Sporting Activities Do You Participate In? Walking Information not available 10/15/2023 Do You Feel Stressed (tense, Restless, Nervous, Or Anxious, Or Unable To Sleep At Night)? [id number] Information not available 04/15/2023 Do You Use Any Illicit Or Recreational Drugs? No Information not available 04/15/2023 Do You Use Sunscreen Routinely? Yes Information not available 04/15/2023 Has Tobacco Cessation Counseling Been Provided? No Information not available 04/15/2023 Have You Recently Traveled Abroad? No Information not available 04/15/2023 Are You Currently In School? No Information not available 04/15/2023 Do You Have Any Dietary Restrictions? No Information not available 04/15/2023 Do You Or Have You Ever Used Any Other Forms Of Tobacco Or Nicotine? No Information not available 04/15/2023 How Many Days In The Past Year Have You Consumed 4 Or More Drinks? 0 Information not available 04/15/2023 Sex: Female Functional Status Question Answer Note LastModified by Organization D etails LastModified Time What is your exercise level? Moderate Information not available 04/15/2023 Mental Status None recorded. Family History Relationship Description Onset Age of this Age Resolved Age Notes LastModified by Organization Details LastModified Time Mother History of thyroid disorder Not available 2022 09:05:09 Mother Hypothyroidi sm 40 Not available 2022 09:05:09 Maternal Grandmother History of thyroid disorder Not available 2022 09:05:09 Maternal Grandmother Hypothyroidi sm Not available 2022 09:05:09 Paternal Grandmother Heart disease Not available 2022 09:05:09 Medical History Condition Response HYPOTHYROIDISM Y GERD/NAUSEA Y HEADACHES/MIGRAINES Y Gynecological History Statement/Question Response Flow Moderate Date of LMP 09/21/2023 STIs/STDs N Duration of Flow (days) 4 Current Control Method None Age at Menarche 10 Most Recent Mammogram How many live births 0 Date of Last Colonoscopy Frequency of Cycle (Q days) 28 Most Recent Bone Density Sexually Active? Y Menses Monthly Y Date of Last Pap Smear 07/30/2021 Obstetrics History GPAL:G 0 P 0 0 0 0 Past Encounters Encounter ID Performer Location Encounter Start Date Encounter Closed Date Diagnosis/Indication Diagnosis SNOMED-CT Code Diagnosis ICD10 Code [id number] [facility] [employer] [address] [place] [address] 09/10/2021 00:00:00 09/10/2021 14:10:29 [id number] [facility] [employer] [address] [place] [address] 10/23/2021 00:00:00 10/23/2021 16:32:13 [id number] Mary Paulino MD [facility] [employer] [address] [place] [address] 01/24/2023 15:38:10 01/24/2023 16:19:32 Hypothyroidism 58515228 E03.9 Impaired f asting glycemia 172406448 R73.01 [id number] Christy Hannah [facility]_[address] [address] 04/15/2023 11:41:52 04/15/2023 13:06:37 Hypothyroidism 84382869 E03.9 Hyperglycemia 75368667 R 73.9 [id number] Livia Flores NP [facility]_[address] [address] 06/17/2023 08:58:06 06/17/2023 09:44:18 Hypothyroidism 12568416 E03.9 [id number] ANICETO Granados [facility] [address] [place] [address] 10/15/2023 08:59:30 10/15/2023 10:11:04 Hypothyroidism 81402646 E03.9 [id number] Ariel Valente [facility] [address] [place] [address] 01/14/2024 09:50:12 01/14/2024 10:36:19 Hypothyroidism 82687092 E03.9 Health Concerns Section Related Observation LastModified by Organization Detai ls LastModified Time None Recorded Concern Status LastModified by Organization Details LastModified Time None Recorded Advance Directives Directive N: Payers Encounter Date Sequence Insurance Name Policy Number Policy Leos Covered Member ID Leos Member ID Guarantor Name 04/15/2023 1 [employer] - CHOICE (POS II) Gold Villatoro [id number] Annabel Villatoro 06/17/2023 1 [facility] Gold Villatoro [id number] Annabel Villatoro 10/15/2023 1 [employer] [facility] [employer] Gold Villatoro [id number] Annabel Villatoro 01/14/2024 1 [facility] Gold Villatoro [id number] Annabel Villatoro Notes Date Note Type Note Provider Name and Address Organization Details Recorded Time 01/24/2023 text/html 22 yo female com es in for follow up in management of hypothyroidism and impaired fasting glucose. last seen in September 2021 at that time we transitioned to unithroid 75 mcg daily She felt better on the unithroid and now more fatigued since pharmacy gave her generic levothyroxine. Her cycles are a little off since generic. She was regulated on the unithroid replacement. labs from 01/17:TPO 86 IU/mlB12/folate normalTSH of 3.630 uIU/mlFT4 of 1.2 ng/dlFT3 of 3.9 pg/mLglucose 98 mg/dLCr normalLFT normal Mary Paulino MD [address] [facility] [address], [place], [address], [place] [facility] [address] 01/24/2023 17:14:13 04/15/2023 text/html Her for new ladan ent appt.Moved to area 2 years ago> Did not establish with PCP yet. 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 Unsure what labs were.Has order to get labs done from Dr. Paulino from her December appt. States she still has order at home and will get labs drawn.Has been on unithroid 88 mcg. Last labs no change in dose. Still on 88 mcg from December 2022. Overdue for vision.Dental- overdue, been a few years. Livia Flores NP [address], [place], [address], [facility] 04/15/2023 12:41:04 06/17/2023 text/html here for checkup . States she is on fertility meds- letrozole. This is the last month- Marilyn Willams. Has gained 10 lbs from 2 mo ago.Not feeling sluggish or tired. Some constipation. Tries to get 60 ounces water daily. Livia Flores NP [address], [place], [address], [facility] 06/17/2023 09:28:08 10/15/2023 text/html Annabel duncan is a 23 year old female patient here to establish care. She was previously a patient of Livia Flores who is no longer at this clinic. Annabel's past medical history is positive for hypothyroidism, which was managed by endocrinology but is now managed by PCP. She is taking levothyroxine 88 mcg. Her last TSH (04/17/2023) was 3.580. Will recheck today. She is currently trying to conceive and is utilizing fertility medications prescribed by a fertility specialist. She was working with Dr. Paulino who has recently moved clinics, she would like a new referral. They have attempted medication natural conception, they hope to try IUI next. She is on letrozole 5 mg PO for 5 days managed by Marilyn Willams from [facility] in hopes of starting IUI. Flu Shot: declined OVID Vaccines: declinesTDAP: declined 2022LMP: 09/21/22 ANICETO Granados [address] [facility] [facility] [address], [place], [address], [facility] 10/15/2023 10:09:35 01/14/2024 text/html Annabel duncan is a 23 year old female patient here today to follow-up and thyroid labs. She is 11 weeks . She is feeling well overall. She has seen OB. She admits to some mood issues, but is not interested in medications. She has established with Ariel humphrey, ANICETO [address] [facility], [facility] [address], [place], [address], [facility] 01/14/2024 10:20:08 OBGyn Episode No OBEpisode recorded.
--- OUTSIDE RECORDS SUMMARY | 2024-07-19 16:51 | XMS_ITS | Continuity of Care Document ---
Author Organization [facility] [place] Address [address] [place] [address] [place] [address] Care Team Providers Care Stove Cleaner Name Role Phone [facility] Primary Care Provider [phone] JERALD FRANKS Primary Care Provider [phone] Assessment No assessment recorded. Plan of Treatment Reminders Order Date Submit Date Provider Last Modified By Organization Details Last Modified Time Details Appointments SURG POST OP 024 04:30PM Robert YOO MD Not available Not available Not available Lab None record ed. Referral None record ed. Procedures None record ed. Surgeries None record ed. Imaging non-st ress test 024 07/07/20 24 [email or web address] [place], [address], [place], [address], 07/09/2024 06:44:17 Medication Orders None record ed. Patient TargetsNo targets recorded. Patient InstructionsNo instructions recorded. Reason for Referral None Reported. Results Created Date Observation Date Name Description Value Unit Range Abnormal Flag Note LastModifiedBy Organization Detail LastModifiedTime 01/21/20 24 01/21/2024 US, obste tric, nucha l trans lucen cy No observ ation record ed. [email or web address] [place] [address], [place], [address], 01/21/2024 18:13:45 01/21/20 24 01/21/2024 US, obste tric, follo w-up No observ ation record ed. [email or web address] [address], [place], [address], 01/21/2024 18:02:27 03/17/20 24 03/17/2024 US, obste tric, 2nd or 3rd trime ster No observ ation record ed. [email or web address] [place] [address], [place], [address], 03/17/2024 18:00:40 03/17/20 24 03/17/2024 US, obste tric, 2nd or 3rd trime ster No observ ation record ed. [email or web address] [address], [place], [address], 03/17/2024 21:29:59 03/17/20 24 03/17/2024 US, obste tric, 2nd or 3rd trime ster No observ ation record ed. [email or web address] [address], [place], [address], 03/17/2024 21:29:58 05/12/20 24 05/12/2024 US, obste tric, follo w-up No observ ation record ed. [facility] [address], [place], [address], 05/12/2024 12:28:02 05/12/20 24 05/12/2024 US, obste tric, follo w-up No observ ation record ed. [address], [place], [address], 2024 14:27:07 06/09/20 24 06/09/2024 US, obste tric, follo w-up No observ ation record ed. [email or web address] [place] [address], [place], [address], 06/09/2024 18:21:25 06/09/20 24 06/09/2024 US, obste tric, follo w-up No observ ation record ed. [email or web address] [address], [place], [address], 06/09/2024 23:15:46 06/30/20 24 06/30/2024 US, obste tric, bioph ysica l profi le + non-s tress test No observ ation record ed. [facility] [address], [place], [address], 06/30/2024 14:24:56 06/30/20 24 06/30/2024 US, obste tric, follo w-up No observ ation record ed. [address], [place], [address], 07/01/2024 18:39:43 07/02/20 24 07/02/2024 non-s tress test No observ ation record ed. [email or web address] [place] [address], [place], [address], 07/02/2024 19:37:01 07/02/20 non-s tress test No observ ation record ed. [email or web address] [place] [address], [place], [address], 07/02/2024 19:38:57 07/06/20 24 07/06/2024 non-s tress test No observ ation record ed. [address] [facility] [address], [place], [address], 07/06/2024 15:30:22 07/07/20 24 07/07/2024 US, obste tric, bioph ysica l profi le + non-s tress test No observ ation record ed. [facility] [address], [place], [address], 07/07/2024 13:11:20 07/07/20 24 07/07/2024 US, obste tric, follo w-up No observ ation record ed. [email or web address] [place] [address], [place], [address], 07/07/2024 13:11:30 07/07/20 24 07/07/2024 US, obste tric, follo w-up No observ ation record ed. [email or web address] [address], [place], [address], 07/08/2024 09:12:23 07/07/20 24 07/07/2024 non-s tress test No observ ation record ed. [email or web address] [place] [address], [place], [address], 07/07/2024 14:50:51 Result Notes None recorded. Problems Name Problem SNOMED Code Status Onset Date Resolution Date Notes Provider Name and Address Organization Details Recorded Time Pregnanc y 80239128 Completed 202307/19/2024 Whit zaman, [facility] 4 17:45:12 Primary infertil ity 039928395 Completed [address], [place], [address], [facility] 4 14:44:04 Artifici al insemina tion Completed IUI by Sp [address], [place], [address], [facility] 4 14:44:04 Disorder of thyroid gland 72831382 Completed followed by endocrin e on unithroi d daily [address], [place], [address], [facility] 4 14:44:04 Problem Notes None recorded. Procedures Surgical History Date Name Laterality Status Provider Name and Address Organization Details Recorded Time 07/12/20 24 SECTION (SURG) completed [facility] 07/14/2024 20:00:50 12/24/19 24 Date of Last Pap Smear completed [facility] 12/24/2023 14:16:42 11/11/19 24 intrauterine artificial insemination completed [facility] 11/11/2023 10:01:37 Imaging Results Imaging Date Name Status LastModified by Organiz ation Details LastModified Time 07/07/2024 non-stress test completed [address] [place] [address] [address], [place], [address], 07/07/2024 14:50:51 Procedure Notes None recorded. Medical [...] (supplie d by patient from pharmacy lot [id number] Exp 06/15/20 24 Not Available Not Available [...] Address Organization Details Last Updated DateTime 4 379432. 05553 g 42.9 kg/m2 167.64 cm 163 mm[Hg] 88 mm[Hg] 158 mm[Hg] 98 mm[Hg] Gwen Glass [facility] 4 12:44:00 Social History Question Answer Notes LastModified by Organizat ion Details LastModified Time Tobacco Smoking Status Never Smoker Violet Mac junie, [facility] 12/25/2022 15:25:08 Do You Have An Advance Directive? No [email or web address] Information n ot available 08/01/2021 What Is Your Level Of Alcohol Consumption? None [email or web address] Information not available 08/01/2021 Are You Blind Or Do You Have Difficulty Seeing? No [email or web address] Information n ot available 08/01/2021 What Is Your Level Of Caffeine Consumption? Moderate [email or web address] Information not available 08/01/2021 In The 14 Days Before Symptom Onset, Have You Had Close Contact With A Laboratory-confirm ed COVID-19 While That Case Was Ill? No [email or web address] Information n ot available 08/01/2021 In The 14 Days Before Symptom Onset, Have You Had Close Contact With A Person Who Is Under Investigation For COVID-19 While That Person Was Ill? No [email or web address] Information not available 08/01/2021 Have You Been To An Area Known To Be High Risk For COVID-19? No [email or web address] Information not available 08/01/2021 Are You Deaf Or Do You Have Serious Difficulty Hearing? No [email or web address] Information not available 08/01/2021 What Type Of Diet Are You Following? REGULAR [email or web address] Information n ot available 08/01/2021 What Is The Highest Grade Or Level Of School You Have Completed Or The Highest Degree You Have Received? 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 No [email or web address] Information not available 08/01/2021 Do You Use Protection During Sex? Always Information not available 08/01/2021 Do You Use Your Seat Belt Or Car Seat Routinely? Yes [email or web address] Information not available 08/01/2021 Do You Have Smoke And Carbon Monoxide Detectors In Your Home? Yes [email or web address] Information not available 08/01/2021 How Much Tobacco Do You Smoke? No [email or web address] Information not available 08/01/2021 Do You Feel Stressed (tense, Restless, Nervous, Or Anxious, Or Unable To Sleep At Night)? [id number] [email or web address] Information not available 08/01/2021 Do You Use Any Illicit Or Recreational Drugs? No [email or web address] Information not available 08/01/2021 Do You Use Sunscreen Routinely? Yes [email or web address] Information not available 08/01/2021 Has Tobacco Cessation Counseling Been Provided? No [email or web address] Information not available 12/25/2022 Have You Used IV Drugs? No Information not available 08/01/2021 Do You Or Have You Ever Used Any Other Forms Of Tobacco Or Nicotine? No [email or web address] Information not available 12/25/2022 Sex: Unknown Functional Status Question Answer Note LastModified by Organizat ion Details LastModified Time Do you have difficulty walking or climbing stairs? No [email or web address] Information not available 12/25/2022 Are you able to walk? YESWOREST [email or web address] Information not available 08/01/2021 Are you able to care for yourself? Yes [email or web address] Information not available 12/25/2022 Do you have difficulty dressing or bathing? No [email or web address] Information not available 12/25/2022 What is your exercise level? Moderate Information not available 08/01/2021 Mental Status None recorded. Family History Relationship Description Onset Age of this Age Resolved Age Notes LastModified by Organization Details LastModified Time Maternal Grandmother Disorder of thyroid gland [email or web address] Not available 08/01 09:54:58 Mother Asthma [email or web address] Not available 08/01/2021 09:54:58 Mother Disorder of thyroid gland [email or web address] Not available 08/01 09:54:58 Paternal Grandmother Heart disease [email or web address] Not available 08/01 09:54:58 Medical History Condition Response Other Y Blood Transfusion N Dermatologic Disorders N Gestational Diabetes N Anxiety Disorder N Autoimmune disease N Arthritis N Polyps N Infertility N Acid Reflux (GERD) N Cancer N Varicosities N Stroke N Neurologic/Epilepsy N Fibromyalgia N Headaches N Kidney Disease N Heart Problems N Kidney or Bladder Problems N Eating Disorder N Art (IVF or FET) Y Hepatitis/Liver Disease N No Past Medical History N Urinary Tract Infection N Asthma Y Trauma/Violence N Thrombophilias N Allergies (Food, seasonal, environmental ) Y Breast Cancer N Drug/Latex Allergies/Reactions N Lung Disease N Defects or Inherited Disease N Breast Problem N Hematologic disorders N Anesthesia Complications N History of STI N Deep Vein Thrombosis N Polycystic ovary syndrome N History of abnormal pap N Endometriosis N High Cholesterol N Thyroid Problems Y GI Problems N Anemia N Psychiatric Illness N Ovarian Cancer N Diabetes N Pulmonary (TB, Asthma) N Eczema N Abuse/Domestic Violence N Depression/ depression N Heart Disease N Pre-Eclampsia N Hypertension N Osteoporosis N Gynecological History Statement/Question Response Abnormal Pap [...] Diagnosis/Indication Diagnosis SNOMED-CT Code Diagnosis ICD10 Code [id number] Clari Vanessa [place] [address] [address] 06/09/2024 13:18:21 06/09/2024 13:58:19 IVF - in-vitro fertilization 3948509687 2102 O09.819 O99.213 Z3A.32 [id number] Marilyn Willams [facility] [address],[place] [address] 06/09/2024 13:18:51 06/09/2024 14:52:39 Gestation period, 32 weeks 1841849 Z3A.32 [id number] [facility] [address],[place] [address] 06/30/2024 11:34:33 06/30/2024 12:14:08 Maternal obesity complicating , childbirth and the puerperium, antepartum 4715962742 07 O99.213 Z3A.35 [id number] Marilyn Willams [facility] [address],[place] [address] 06/30/2024 11:35:18 06/30/2024 16:28:29 Gestation period, 35 weeks 97953911 Z3A.35 [id number] Gwen Glass [place] [address],[place] [address] 07/02/2024 11:29:26 07/05/2024 09:39:47 care: history of infertility 792952270 O09.03 [id number] Marilyn Willams [facility] [address],[place] [address] 07/02/2024 11:29:43 07/02/2024 13:24:04 Routine care 245923187 Z34.92 [id number] Clari Vanessa [place] [address],[place] [address] 07/07/2024 11:28:23 07/07/2024 12:08:49 IVF - in-vitro fertilization 1829993583 2102 O99.213 O09.813 Z3A.36 [id number] Francie Alonsoeliasfarzad [facility] [address],[place] [address] 07/07/2024 11:28:40 07/07/2024 15:56:24 84513072 Z33.1 - induced hypertension 19332271 O13.9 Z3A.36 [id number] [facility] [address] [address] 07/07/2024 11:28:54 07/07/2024 13:59:28 Routine care 006011397 Z34.92 Health Concerns Section Related Observation LastModified by Organization Detai ls LastModified Time None Recorded Concern Status LastModified by Organization Details LastModified Time None Recorded Payers Encounter Date Sequence Insurance Name Policy Number Policy Leos Covered Member ID Leos Member ID Guarantor Name 07/07/2024 1 [employer] [id number] Gold Villatoro [id number] Annabel Villatoro OBGyn Episode Ob Episode Information Episode Created Date Number of Fetuses Patient Bloodtype Patient rh Status Prepregnancy Weight lbs Domestic Partner Domestic Partner Phone Father Name 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 Status 01/21/20 24 1 B Positive 237 Gold Bautista on CLOSED Fetus Data First Name Last Name Admitted to NICU Weight (g) Sex Living Outcome Pediatric Complications Fetus ID Race Codes Race Delivery Type Tommy 2778.25 1 M [id number] Primary Problems Problem Notes +GBS Problem Name Start Date End Date Resolution Snomed Code Not e Disorder of thyroid gland 64671360 followed by endocrine on unithroid daily Primary infertility 675699103 Artificial insemination [id number] 08 IUI by Sp Eugene Calculation EUGENE Calculation Method Initial Eugene Date Initial Exam Date Initial Exam Provider Initial Ultrasound Date Last Menstrual Period Date Ultra Sound Weeks Gestation Conception by IVF Embryo Age at Transfer Date of Transfer 07/31/19 25 12/24/19 24 12/11/2023 10/25/2023 6 Eighteen To Twenty Week Eugene Update Ultra Sound Date Fundal Height At Umbil Quickening Date Ultra Sound Latest Weeks Gestation Final Eugene Confirmed By Final Eugene Confirmed Date Final Eugene Date Ultra Sound Latest Days Gestation 01/21/20 24 12 [email or web address] 01/21/2024 07/31/19 25 3 Pre-sean Flowsheet Flowsheet Date 01/21/2024 Castaneda Score Blood Edema Fundus Height Fundus Units Glucose Ketones Leukocytes Nitrite Labor Signs Protein Cervic Dilation Cervic Effacement Cervic Station none Type Weight in lbs Pre/Post Dialysis Refused Weight 236.593729956390 BP Diastolic BP Location Tested BP Systolic BP Type 84 131 Fetus Heart Rate Present Fetus Movement A No Comments Patient is having round liga ment pain. 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 +FM, plan gct and growth next visit, education and precautionsfamily for peds, wants circumcision, f/u 4 weeks [...] Type Weight in lbs Pre/Post Dialysis Refused 253.589422978512 BP Diastolic BP Location Tested BP Systolic [...] Type Weight in lbs Pre/Post Dialysis Refused 253.450234440589 BP Diastolic BP Location Tested BP Systolic [...] Type Weight in lbs Pre/Post Dialysis Refused 260.061862231027 BP Diastolic BP Location Tested BP Systolic [...] Type Weight in lbs Pre/Post Dialysis Refused 267.805323393631 BP Diastolic BP Location Tested BP Systolic [...] Weight in lbs Pre/Post Dialysis Refused Weight 267.375923646390 BP Diastolic BP Location Tested BP Systolic BP Type 111 164 98 168 Fetus Heart Rate Present Fetus Movement Comments Flowsheet Date 07/02/2024 Castaneda Score Blood Edema Fundus Height Fundus Units Glucose Ketones Leukocytes Nitrite Labor Signs Protein Cervic Dilation Cervic Effacement Cervic Station trace Type Weight in lbs Pre/Post Dialysis Refused 267.210668258471 BP Diastolic BP Location Tested BP Systolic [...] Type Weight in lbs Pre/Post Dialysis Refused 266.237760725307 BP Diastolic BP Location Tested BP Systolic [...] Weight in lbs Pre/Post Dialysis Refused Weight 241.486767225248 BP Diastolic BP Location Tested BP Systolic [...] At Estimated Date of Delivery false Thalassemia (Welsh, Tanzanian, Mediterranean, Or Background): MCV < 80 false Neural Tube Defect (Meningom yelocele, Spina Bifida, Or Anencephaly) false Congenital Heart Defect false Down Syndrome false Kwadwo-Sachs (eg, Denominational, Cajun, Macedonian-[place]) f alse Dorita Disease false Sickle Cell Disease Or Trait () false Hemophilia Or Other Blood Disorders false Muscular Dystrophy false Cystic Fibrosis false Faribault's Chorea false Intellectual Disability/Autism false If Yes, [...] Post Complications Tubal Sterilization Discharge Date Comments 12/16/202 4 37.2 Byron Yoo MD Discharge Information Feeding Method Contraceptive Method Maternal HG B and HCT Levels
--- OUTSIDE RECORDS SUMMARY | 2024-07-19 16:51 | XMS_ITS | Continuity of Care Document ---
Author Organization [facility] [place] Address [address] [place] [address] Care Team Providers Care Judicial Law Clerk Name Role Phone [facility] Primary Care Provider [phone] JERALD FRANKS Primary Care Provider Assessment Encounter Date Assessment Date Assessment LastModified [...] record ed. Surgeries None record ed. Imaging None record ed. Medication Orders None record ed. Patient TargetsNo targets recorded. Patient InstructionsNo instructions recorded. Reason for Referral None Reported. Results Created Date Observation Date Name Description Value Unit Range Abnormal Flag Note LastModifiedBy Organization Detail LastModifiedTime 01/21/20 24 01/21/2024 US, obste tric, nucha l trans lucen cy No observ ation record ed. [email or web address] [place] [address], [place], [address], 01/21/2024 18:13:45 01/21/20 24 01/21/2024 US, obste tric, follo w-up No observ ation record ed. [address], [place], [address], 01/21/2024 18:02:27 03/17/20 24 03/17/2024 US, obste tric, 2nd or 3rd trime ster No observ ation record ed. [email or web address] [place] [address], [place], [address], 03/17/2024 18:00:40 03/17/20 24 03/17/2024 US, obste tric, 2nd or 3rd trime ster No observ ation record ed. [email or web address] [address], [place], [address], 03/17/2024 21:29:59 03/17/20 24 03/17/2024 US, obste tric, 2nd or 3rd trime ster No observ ation record ed. [email or web address] [address], [place], [address], 03/17/2024 21:29:58 05/12/20 24 05/12/2024 US, obste tric, follo w-up No observ ation [facility] ed. [email or web address] [address], [place], [address], 05/12/2024 12:28:02 05/12/20 24 05/12/2024 US, obste tric, follo w-up No observ ation record ed. [email or web address] [address], [place], [address], 2024 14:27:07 06/09/20 24 06/09/2024 US, obste tric, follo w-up No observ ation record ed. [email or web address] [place] [address], [place], [address], 06/09/2024 18:21:25 06/09/20 24 06/09/2024 US, obste tric, follo w-up No observ ation record ed. [email or web address] [address], [place], [address], 06/09/2024 23:15:46 06/30/20 24 06/30/2024 US, obste tric, bioph ysica l profi le + non-s tress test No observ ation record ed. [facility] [address], [place], [address], 06/30/2024 14:24:56 06/30/20 24 06/30/2024 US, obste tric, follo w-up No observ ation record ed. [email or web address] [address], [place], [address], 07/01/2024 18:39:43 07/02/20 24 07/02/2024 non-s tress test No observ ation record ed. [email or web address] [place] [address], [place], [address], 07/02/2024 19:37:01 07/02/20 non-s tress test No observ ation record ed. [email or web address] [place] [address], [place], [address], 07/02/2024 19:38:57 07/06/20 24 07/06/2024 non-s tress test No observ ation record ed. [address], [place], [address], 07/06/2024 15:30:22 07/07/20 24 07/07/2024 US, obste tric, bioph ysica l profi le + non-s tress test No observ ation record ed. [facility] [address], [place], [address], 07/07/2024 13:11:20 07/07/20 24 07/07/2024 US, obste tric, follo w-up No observ ation record ed. [email or web address] [place] [address], [place], [address], 07/07/2024 13:11:30 07/07/20 24 07/07/2024 US, obste tric, follo w-up No observ ation record ed. [email or web address] [address], [place], [address], 07/08/2024 09:12:23 07/07/20 24 07/07/2024 non-s tress test No observ ation record ed. [email or web address] [place] [address], [place], [address], 07/07/2024 14:50:51 Result Notes None recorded. Problems Name Problem SNOMED Code Status Onset Date Resolution Date Notes Provider Name and Address Organization Details Recorded Time Pregnanc y 48188810 Completed 202307/19/2024 Whit Cabrera [facility], [facility] 4 17:45:12 Primary infertil ity 311795347 Completed [address], [place], [address], [facility] 4 14:44:04 Artifici al insemina tion Completed IUI by Sp [address], [place], [address], [facility] 4 14:44:04 Disorder of thyroid gland 95914737 Completed followed by endocrin e on unithroi d daily [address], [place], [address], [facility] 4 14:44:04 Problem Notes None recorded. Procedures Surgical History Date Name Laterality Status Provider Name and Address Organization Details Recorded Time 07/12/20 24 SECTION (SURG) completed [facility] 07/14/2024 20:00:50 12/24/19 24 Date of Last Pap Smear completed [facility] 12/24/2023 14:16:42 11/11/19 24 intrauterine artificial insemination completed [facility] 11/11/2023 10:01:37 Imaging Results None recorded. Procedure Notes None [...] (supplie d by patient from pharmacy lot [id number] Exp 06/15/20 24 Not Available Not Available [...] Address Organization Details Last Updated DateTime 4 424341. 57396 g 42.9 kg/m2 167.64 cm 163 mm[Hg] 88 mm[Hg] 158 mm[Hg] 98 mm[Hg] Gwen Glass [facility] 4 12:44:00 Social History Question Answer Notes LastModified by Organizat ion Details LastModified Time Tobacco Smoking Status Never Smoker Violet Mac junie, [facility] 12/25/2022 15:25:08 Do You Have An Advance Directive? No [email or web address] Information n ot available 08/01/2021 What Is Your Level Of Alcohol Consumption? None [email or web address] Information not available 08/01/2021 Are You Blind Or Do You Have Difficulty Seeing? No [email or web address] Information n ot available 08/01/2021 What Is Your Level Of Caffeine Consumption? Moderate [email or web address] Information not available 08/01/2021 In The 14 Days Before Symptom Onset, Have You Had Close Contact With A Laboratory-confirm ed COVID-19 While That Case Was Ill? No [email or web address] Information n ot available 08/01/2021 In The 14 Days Before Symptom Onset, Have You Had Close Contact With A Person Who Is Under Investigation For COVID-19 While That Person Was Ill? No [email or web address] Information not available 08/01/2021 Have You Been To An Area Known To Be High Risk For COVID-19? No [email or web address] Information not available 08/01/2021 Are You Deaf Or Do You Have Serious Difficulty Hearing? No Information not available 08/01/2021 What Type Of Diet Are You Following? REGULAR [email or web address] Information n ot available 08/01/2021 What Is The Highest Grade Or Level Of School You Have Completed Or The Highest Degree You Have Received? 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 No [email or web address] Information not available 08/01/2021 Do You Use Protection During Sex? Always [email or web address] Information not available 08/01/2021 Do You Use Your Seat Belt Or Car Seat Routinely? Yes [email or web address] Information not available 08/01/2021 Do You Have Smoke And Carbon Monoxide Detectors In Your Home? Yes [email or web address] Information not available 08/01/2021 How Much Tobacco Do You Smoke? No [email or web address] Information not available 08/01/2021 Do You Feel Stressed (tense, Restless, Nervous, Or Anxious, Or Unable To Sleep At Night)? [id number] [email or web address] Information not available 08/01/2021 Do You Use Any Illicit Or Recreational Drugs? No [email or web address] Information not available 08/01/2021 Do You Use Sunscreen Routinely? Yes [email or web address] Information not available 08/01/2021 Has Tobacco Cessation Counseling Been Provided? No [email or web address] Information not available 12/25/2022 Have You Used IV Drugs? No [email or web address] Information not available 08/01/2021 Do You Or Have You Ever Used Any Other Forms Of Tobacco Or Nicotine? No Information not available 12/25/2022 Sex: Unknown Functional Status Question Answer Note LastModified by Organizat ion Details LastModified Time Do you have difficulty walking or climbing stairs? No [email or web address] Information not available 12/25/2022 Are you able to walk? YESWOREST [email or web address] Information not available 08/01/2021 Are you able to care for yourself? Yes Information not available 12/25/2022 Do you have difficulty dressing or bathing? No [email or web address] Information not available 12/25/2022 What is your exercise level? Moderate [email or web address] Information not available 08/01/2021 Mental Status None recorded. Family History Relationship Description Onset Age of this Age Resolved Age Notes LastModified by Organization Details LastModified Time Maternal Grandmother Disorder of thyroid gland [email or web address] Not available 08/01 09:54:58 Mother Asthma [email or web address] Not available 08/01/2021 09:54:58 Mother Disorder of thyroid gland [email or web address] Not available 08/01 09:54:58 Paternal Grandmother Heart disease [email or web address] Not available 08/01 09:54:58 Medical History Condition [...] Diagnosis/Indication Diagnosis SNOMED-CT Code Diagnosis ICD10 Code [id number] Clari [facility] [address] [address] 06/09/2024 13:18:21 06/09/2024 13:58:19 IVF - in-vitro fertilization 4383027429 2102 O09.819 O99.213 Z3A.32 [id number] Marilyn Willams [facility] [address] [address] 06/09/2024 13:18:51 06/09/2024 14:52:39 Gestation period, 32 weeks 4841267 Z3A.32 [id number] [facility] [address],[place] [address] 06/30/2024 11:34:33 06/30/2024 12:14:08 Maternal obesity complicating , childbirth and the puerperium, antepartum 5640027622 07 O99.213 Z3A.35 [id number] [facility] [address],[place] [address] 06/30/2024 11:35:18 06/30/2024 16:28:29 Gestation period, 35 weeks 56053554 Z3A.35 [id number] Gwen Glass [place] [address],[place] [address] 07/02/2024 11:29:26 07/05/2024 09:39:47 care: history of infertility 364311785 O09.03 [id number] Marilyn Willams [facility] [address],[place] [address] 07/02/2024 11:29:43 07/02/2024 13:24:04 Routine care 426696468 Z34.92 [id number] Clari Vanessa [place] [address],[place] [address] 07/07/2024 11:28:23 07/07/2024 12:08:49 IVF - in-vitro fertilization 8976831523 2102 O99.213 O09.813 Z3A.36 [id number] Francie Kaitlin jose [place] [address] [address] 07/07/2024 11:28:40 07/07/2024 15:56:24 79811418 Z33.1 - induced hypertension 27984642 O13.9 Z3A.36 [id number] Marilyn Willams [facility] [address],[place] [address] 07/07/2024 11:28:54 07/07/2024 13:59:28 Routine care 677076154 Z34.92 Health Concerns Section Related Observation LastModified by Organization Detai ls LastModified Time None Recorded Concern Status LastModified by Organization Details LastModified Time None Recorded Payers Encounter Date Sequence Insurance Name Policy Number Policy Leos Covered Member ID Leos Member ID Guarantor Name 07/07/2024 1 [employer] [id number] Gold Villatoro [id number] Annabel Villatoro OBGyn Episode Ob Episode Information Episode Created Date Number of Fetuses Patient Bloodtype Patient rh Status Prepregnancy Weight lbs Domestic Partner Domestic Partner Phone Father Name Director Child Status 01/21/20 24 1 B Positive 237 Gold Bautista on CLOSED Fetus Data First Name Last Name Admitted to NICU Weight (g) Sex Living Outcome Pediatric Complications Fetus ID Race Codes Race Delivery Type Tommy 2778.25 1 M [id number] Primary Problems Problem Notes +GBS Problem Name Start Date End Date Resolution Snomed Code Not e Disorder of thyroid gland 80610380 followed by endocrine on unithroid daily Primary infertility 707909851 Artificial insemination 594917 08 IUI by Sp Eugene Calculation EUGENE [...] Sound Latest Days Gestation 01/21/20 24 12 [email or web address] 01/21/2024 07/31/19 25 3 Pre-sean Flowsheet Flowsheet Date 01/21/2024 Castaneda Score Blood Edema Fundus Height Fundus Units Glucose Ketones Leukocytes Nitrite Labor Signs Protein Cervic Dilation Cervic Effacement Cervic Station none Type Weight in lbs Pre/Post Dialysis Refused Weight 236.362965197193 BP Diastolic BP Location Tested BP Systolic BP Type 84 131 Fetus Heart Rate Present Fetus Movement A No Comments Patient is having round liga ment pain. reviewed US, precautions and education, IUI done in the office, on pnv, sees an corporate training manager regularly, labs with [facility] today, routine care Flowsheet Date 02/18/2024 Castaneda Score Blood Edema Fundus Height Fundus Units Glucose Ketones Leukocytes Nitrite Labor Signs Protein Cervic Dilation Cervic Effacement Cervic Station trace Type Weight in lbs Pre/Post Dialysis Refused Weight 240.843027707518 BP Diastolic BP Location Tested BP Systolic BP Type 78 133 Fetus Heart Rate Present A 154 Present Fetus Movement A Yes Comments Patient is having some pain and swelling. 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 and will look at classes, f/u 4 [...] Type Weight in lbs Pre/Post Dialysis Refused 242.700127472004 BP Diastolic BP Location Tested BP Systolic [...] Type Weight in lbs Pre/Post Dialysis Refused 250.799994769896 BP Diastolic BP Location Tested BP Systolic [...] Type Weight in lbs Pre/Post Dialysis Refused 253.830363027621 BP Diastolic BP Location Tested BP Systolic [...] Type Weight in lbs Pre/Post Dialysis Refused 253.125217540334 BP Diastolic BP Location Tested BP Systolic [...] Type Weight in lbs Pre/Post Dialysis Refused 260.659457574384 BP Diastolic BP Location Tested BP Systolic [...] Type Weight in lbs Pre/Post Dialysis Refused 267.460218376826 BP Diastolic BP Location Tested BP Systolic [...] Weight in lbs Pre/Post Dialysis Refused Weight 267.903494578450 BP Diastolic BP Location Tested BP Systolic BP Type 111 164 98 168 Fetus Heart Rate Present Fetus Movement Comments Flowsheet Date 07/02/2024 Castaneda Score Blood Edema Fundus Height Fundus Units Glucose Ketones Leukocytes Nitrite Labor Signs Protein Cervic Dilation Cervic Effacement Cervic Station trace Type Weight in lbs Pre/Post Dialysis Refused 267.259889260595 BP Diastolic BP Location Tested BP Systolic [...] Type Weight in lbs Pre/Post Dialysis Refused 266.153109185858 BP Diastolic BP Location Tested BP Systolic [...] Weight in lbs Pre/Post Dialysis Refused Weight 241.202433978218 BP Diastolic BP Location Tested BP Systolic [...] At Estimated Date of Delivery false Thalassemia (Japanese, Somali, Mediterranean, Or Background): MCV < 80 false Neural Tube Defect (Meningom yelocele, Spina Bifida, Or Anencephaly) false Congenital Heart Defect false Down Syndrome false Kwadwo-Sachs (eg, Christian, Cajun, Cay[place] Islander-Wallisian) f alse Dorita Disease false Sickle Cell Disease Or Trait () false Hemophilia Or Other Blood Disorders false Muscular Dystrophy false Cystic Fibrosis false [place] Chorea false Intellectual Disability/Autism false If Yes, [...]
--- OUTSIDE RECORDS SUMMARY | 2024-07-19 16:52 | XMS_ITS | Continuity of Care Document ---
Author Organization [facility] [place] Address [address] [place] [address] [place] [address] Care Team Providers Care Corporate Development Associate Name Role Phone [facility] Primary Care Provider JERALD FRANKS Primary Care Provider [phone] Assessment No assessment recorded. Plan of Treatment Reminders Order Date Submit Date Provider Last Modified By Organization Details Last Modified Time Details Appointments SURG POST OP 2023 04:30P Venancio YOO MD Not available Not available Not available Lab None recorded. Referral None recorded. Procedures None recorded. Surgeries None recorded. Imaging US, obstetric , biophysic al profile + non-stres s test 2023 024 [email or web address] [place] [facility] [address], [place], [address], 07/07/2024 14:19:44 US, obstetric , follow-up 2023 024 [email or web address] [place] [facility] [address], [place], [address], 07/07/2024 14:19:44 Medication Orders None recorded. Patient TargetsNo targets recorded. Patient InstructionsNo instructions recorded. Reason for Referral None Reported. Results Created Date Observation Date Name Description Value Unit Range Abnormal Flag Note LastModifiedBy Organization Detail LastModifiedTime 01/21/20 24 01/21/2024 US, obste tric, nucha l trans lucen cy No observ ation record ed. [email or web address] [place] [address], [place], [address], 01/21/2024 18:13:45 01/21/20 24 01/21/2024 US, obste tric, follo w-up No observ ation record ed. [email or web address] [address] [address], [place], [address], 01/21/2024 18:02:27 03/17/20 24 03/17/2024 US, obste tric, 2nd or 3rd trime ster No observ ation record ed. [email or web address] [place] [address], [place], [address], 03/17/2024 18:00:40 03/17/2003/17/2024 US, obste tric, 2nd or 3rd trime ster No observ ation record ed. [email or web address] [address] [address], [place], [address], 03/17/2024 21:29:59 03/17/20 24 03/17/2024 US, obste tric, 2nd or 3rd trime ster No observ ation record ed. [email or web address] [place] [address], [place], [address], 03/17/2024 21:29:58 05/12/20 24 05/12/2024 US, obste tric, follo w-up No observ [facility]ion [email or web address] [address], [place], [address], 05/12/2024 12:28:02 05/12/2005/12/2024 US, obste tric, follo w-up No observ ation record ed. [email or web address] [address], [place], [address], 2024 14:27:07 06/09/20 24 06/09/2024 US, obste tric, follo w-up No observ ation record ed. [email or web address] [place] [address], [place], [address], 06/09/2024 18:21:25 06/09/20 24 06/09/2024 US, obste tric, follo w-up No observ ation record ed. [email or web address] [address] [address], [place], [address], 06/09/2024 23:15:46 06/30/20 24 06/30/2024 US, obste tric, bioph ysica l profi le + non-s tress test No observ ation record ed. [email or web address] [place] [address], [place], [address], 06/30/2024 14:24:56 06/30/20 24 06/30/2024 US, obste tric, follo w-up No observ ation record ed. [email or web address] [address] [address], [place], [address], 07/01/2024 18:39:43 07/02/20 24 07/02/2024 non-s tress test No observ ation record ed. [email or web address] [place] [address], [place], [address], 07/02/2024 19:37:01 07/02/20 non-s tress test No observ ation record ed. [email or web address] [place] [address], [place], [address], 07/02/2024 19:38:57 07/06/20 24 07/06/2024 non-s tress test No observ ation record ed. [address] [facility] [address], [place], [address], 07/06/2024 15:30:22 07/07/20 24 07/07/2024 US, obste tric, bioph ysica l profi le + non-s tress test No observ ation record ed. [facility] [address], [place], [address], 07/07/2024 13:11:20 07/07/20 24 07/07/2024 US, obste tric, follo w-up No observ ation record ed. [facility] [address], [place], [address], 07/07/2024 13:11:30 07/07/20 24 07/07/2024 US, obste tric, follo w-up No observ ation record ed. [address], [place], [address], 07/08/2024 09:12:23 07/07/20 24 07/07/2024 non-s tress test No observ ation record ed. [email or web address] [place] [address], [place], [address], 07/07/2024 14:50:51 Result Notes None recorded. Problems Name Problem SNOMED Code Status Onset Date Resolution Date Notes Provider Name and Address Organization Details Recorded Time Pregnanc y 14710555 Completed 202307/19/2024 [facility] 17:45:12 Primary infertil ity 662332316 Completed [address], [place], [address], [facility] 4 14:44:04 Artifici al insemina tion Completed IUI by Sp [address], [place], [address], [facility] 4 14:44:04 Disorder of thyroid gland 01248655 Completed followed by endocrin e on unithroi d daily Marilyn Rosagle, CNM [address], [place], [address], [place] [facility] 14:44:04 Problem Notes None recorded. Procedures Surgical History Date Name Laterality Status Provider Name and Address Organization Details Recorded Time 07/12/20 24 SECTION (SURG) completed Gwennew Glass [facility] 07/14/2024 20:00:50 12/24/19 24 Date of Last Pap Smear completed Gwen Glass [facility] 12/24/2023 14:16:42 11/11/19 24 intrauterine artificial insemination completed Gwennew Glass [facility] 11/11/2023 10:01:37 Imaging Results Imaging Date Name Status LastModified by Organiz ation Details LastModified Time 07/07/2024 US, obstetric, biophysical profile + non-stress test completed [facility] [address], [place], [address], 07/07/2024 13:11:20 07/07/2024 US, obstetric, follow-up completed [facility] [address], [place], [address], 07/07/2024 13:11:30 07/07/2024 US, obstetric, follow-up completed [address] [facility], [place], [address], 07/08/2024 09:12:23 Procedure Notes None recorded. Medical Equipment None [...] (supplie d by patient from pharmacy lot [id number] Exp 06/15/20 24 Not Available Not Available [...] Address Organization Details Last Updated DateTime 4 428612. 53163 g 42.9 kg/m2 167.64 cm 163 mm[Hg] 88 mm[Hg] 158 mm[Hg] 98 mm[Hg] Gwen Glass [facility] 4 12:44:00 Social History Question Answer Notes LastModified by Organizat ion Details LastModified Time Tobacco Smoking Status Never Smoker Violet Mac junie, [facility] 12/25/2022 15:25:08 Do You Have An Advance Directive? No [email or web address] Information n ot available 08/01/2021 What Is Your Level Of Alcohol Consumption? None Information not available 08/01/2021 Are You Blind Or Do You Have Difficulty Seeing? No Information n ot available 08/01/2021 What Is Your Level Of Caffeine Consumption? Moderate [email or web address] Information not available 08/01/2021 In The 14 Days Before Symptom Onset, Have You Had Close Contact With A Laboratory-confirm ed COVID-19 While That Case Was Ill? No Information n ot available 08/01/2021 In The 14 Days Before Symptom Onset, Have You Had Close Contact With A Person Who Is Under Investigation For COVID-19 While That Person Was Ill? No [email or web address] Information not available 08/01/2021 Have You Been To An Area Known To Be High Risk For COVID-19? No [email or web address] Information not available 08/01/2021 Are You Deaf Or Do You Have Serious Difficulty Hearing? No Information not available 08/01/2021 What Type Of Diet Are You Following? REGULAR [email or web address] Information n ot available 08/01/2021 What Is The Highest Grade Or Level Of School You Have Completed Or The Highest Degree You Have Received? 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 No [email or web address] Information not available 08/01/2021 Do You Use Protection During Sex? Always [email or web address] Information not available 08/01/2021 Do You Use Your Seat Belt Or Car Seat Routinely? Yes [email or web address] Information not available 08/01/2021 Do You Have Smoke And Carbon Monoxide Detectors In Your Home? Yes [email or web address] Information not available 08/01/2021 How Much Tobacco Do You Smoke? No [email or web address] Information not available 08/01/2021 Do You Feel Stressed (tense, Restless, Nervous, Or Anxious, Or Unable To Sleep At Night)? [id number] Information not available 08/01/2021 Do You Use Any Illicit Or Recreational Drugs? No Information not available 08/01/2021 Do You Use Sunscreen Routinely? Yes [email or web address] Information not available 08/01/2021 Has Tobacco Cessation Counseling Been Provided? No [email or web address] Information not available 12/25/2022 Have You Used IV Drugs? No [email or web address] Information not available 08/01/2021 Do You Or Have You Ever Used Any Other Forms Of Tobacco Or Nicotine? No [email or web address] Information not available 12/25/2022 Sex: Unknown Functional Status Question Answer Note LastModified by Organizat ion Details LastModified Time Do you have difficulty walking or climbing stairs? No [email or web address] Information not available 12/25/2022 Are you able to walk? YESWOREST [email or web address] Information not available 08/01/2021 Are you able to care for yourself? Yes [email or web address] Information not available 12/25/2022 Do you have difficulty dressing or bathing? No [email or web address] Information not available 12/25/2022 What is your exercise level? Moderate Information not available 08/01/2021 Mental Status None recorded. Family History Relationship Description Onset Age of this Age Resolved Age Notes LastModified by Organization Details LastModified Time Maternal Grandmother Disorder of thyroid gland Not available 08/01 09:54:58 Mother Asthma [email or web address] Not available 08/01/2021 09:54:58 Mother Disorder of thyroid gland [email or web address] Not available 08/01 09:54:58 Paternal Grandmother Heart disease [email or web address] Not available 08/01 09:54:58 Medical History Condition [...] Diagnosis/Indication Diagnosis SNOMED-CT Code Diagnosis ICD10 Code [id number] Clari Vanessa [place] [address] [address] 06/09/2024 13:18:21 06/09/2024 13:58:19 IVF - in-vitro fertilization 3833974888 2102 O09.819 O99.213 Z3A.32 [id number] Marilyn Willams [facility] [address],[place] [address] 06/09/2024 13:18:51 06/09/2024 14:52:39 Gestation period, 32 weeks 6943169 Z3A.32 [id number] Trish Persaud [place] [address],[place] [address] 06/30/2024 11:34:33 06/30/2024 12:14:08 Maternal obesity complicating , childbirth and the puerperium, antepartum 1936272048 07 O99.213 Z3A.35 [id number] Marilyn Willams [facility] [address] [place] [address] 06/30/2024 11:35:18 06/30/2024 16:28:29 Gestation period, 35 weeks 19519041 Z3A.35 [id number] Gwen Glass [place] [address],[place] [address] 07/02/2024 11:29:26 07/05/2024 09:39:47 care: history of infertility 888252226 O09.03 [id number] Marilyn Willams [facility] [address],[place] [address] 07/02/2024 11:29:43 07/02/2024 13:24:04 Routine care 447836474 Z34.92 [id number] Clari Vanessa [place] [address],[place] [address] 07/07/2024 11:28:23 07/07/2024 12:08:49 IVF - in-vitro fertilization 9720731212 2102 O99.213 O09.813 Z3A.36 [id number] Francie Madrigal [facility] [address],[place] [address] 07/07/2024 11:28:40 07/07/2024 15:56:24 84599115 Z33.1 - induced hypertension 37041400 O13.9 Z3A.36 [id number] Marilyn Willams [facility] [address] [address] 07/07/2024 11:28:54 07/07/2024 13:59:28 Routine care 167660617 Z34.92 Health Concerns Section Related Observation LastModified by Organization Detai ls LastModified Time None Recorded Concern Status LastModified by Organization Details LastModified Time None Recorded Payers Encounter Date Sequence Insurance Name Policy Number Policy Leos Covered Member ID Leos Member ID Guarantor Name 07/07/2024 1 [facility] [employer] [id number] Gold Villatoro [id number] Annabel Villatoro OBGyn Episode Ob Episode Information Episode Created Date Number of Fetuses Patient Bloodtype Patient rh Status Prepregnancy Weight lbs Domestic Partner Domestic Partner Phone Father Name Manager Council Status 01/21/20 24 1 B Positive 237 Gold Bautista on CLOSED Fetus Data First Name Last Name Admitted to NICU Weight (g) Sex Living Outcome Pediatric Complications Fetus ID Race Codes Race Delivery Type Tommy 2778.25 1 M [id number] Primary Problems Problem Notes +GBS Problem Name Start Date End Date Resolution Snomed Code Not e Disorder of thyroid gland 76368121 followed by endocrine on unithroid daily Primary infertility 049148116 Artificial insemination [id number] 08 IUI by Sp Eugene Calculation EUGENE [...] Sound Latest Days Gestation 01/21/20 24 12 [email or web address] 01/21/2024 07/31/19 25 3 Pre- Flowsheet Flowsheet Date 01/21/2024 Castaneda Score Blood Edema Fundus Height Fundus Units Glucose Ketones Leukocytes Nitrite Labor Signs Protein Cervic Dilation Cervic Effacement Cervic Station none Type Weight in lbs Pre/Post Dialysis Refused Weight 236.193060437332 BP Diastolic BP Location Tested BP Systolic BP Type 84 131 Fetus Heart Rate Present Fetus Movement A No Comments Patient is having round liga ment pain. reviewed US, precautions and education, IUI done in the office, on pnv, sees an school health assistant regularly, labs with NIPS today, routine care Flowsheet Date 02/18/2024 Castaneda Score Blood Edema Fundus Height Fundus Units Glucose Ketones Leukocytes Nitrite Labor Signs Protein Cervic Dilation Cervic Effacement Cervic Station trace Type Weight in lbs Pre/Post Dialysis Refused Weight 240.230205052448 BP Diastolic BP Location Tested BP Systolic BP Type 78 133 Fetus Heart Rate Present A 154 Present Fetus Movement A Yes Comments Patient is having some pain and swelling. 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 and will look at classes, f/u 4 [...] Type Weight in lbs Pre/Post Dialysis Refused 242.009381951318 BP Diastolic BP Location Tested BP Systolic [...] Type Weight in lbs Pre/Post Dialysis Refused 250.376543534388 BP Diastolic BP Location Tested BP Systolic [...] Type Weight in lbs Pre/Post Dialysis Refused 253.523414410161 BP Diastolic BP Location Tested BP Systolic [...] Type Weight in lbs Pre/Post Dialysis Refused 253.595933180699 BP Diastolic BP Location Tested BP Systolic [...] Type Weight in lbs Pre/Post Dialysis Refused 260.441937217406 BP Diastolic BP Location Tested BP Systolic [...] Type Weight in lbs Pre/Post Dialysis Refused 267.525893317525 BP Diastolic BP Location Tested BP Systolic [...] Weight in lbs Pre/Post Dialysis Refused Weight 267.345945719981 BP Diastolic BP Location Tested BP Systolic BP Type 111 164 98 168 Fetus Heart Rate Present Fetus Movement Comments Flowsheet Date 07/02/2024 Castaneda Score Blood Edema Fundus Height Fundus Units Glucose Ketones Leukocytes Nitrite Labor Signs Protein Cervic Dilation Cervic Effacement Cervic Station trace Type Weight in lbs Pre/Post Dialysis Refused 267.663076510518 BP Diastolic BP Location Tested BP Systolic [...] Type Weight in lbs Pre/Post Dialysis Refused 266.203022974459 BP Diastolic BP Location Tested BP Systolic [...] Weight in lbs Pre/Post Dialysis Refused Weight 241.249602892426 BP Diastolic BP Location Tested BP Systolic [...] At Estimated Date of Delivery false Thalassemia (Slovak, Andorran, Mediterranean, Or Background): MCV < 80 false Neural Tube Defect (Meningom yelocele, Spina Bifida, Or Anencephaly) false Congenital Heart Defect false Down Syndrome false Kwadwo-Sachs (eg, Adventist, Cajun, Persian-Czech) f alse Dorita Disease false Sickle Cell Disease Or Trait () false Hemophilia Or Other Blood Disorders false Muscular Dystrophy false Cystic Fibrosis false Denisse's Chorea false Intellectual Disability/Autism false If Yes, [...]
--- OUTSIDE RECORDS SUMMARY | 2024-07-19 16:52 | XMS_ITS | Continuity of Care Document ---
Author Organization [facility] [place] Address [address] [place] [address] Care Team Providers Care Condominium Property Manager Name Role Phone [facility] Primary Care Provider [phone] JERALD FRANKS Primary Care Provider Assessment Encounter Date Assessment Date Assessment LastModified by Organization Details LastModified Time 06/30/2024 06/30/2024 Patient is _35__weeks . Discussed plan. Not available 06/30/2024 15:45:25 Plan of Treatment Reminders Order Date Submit [...] cy No observ ation record ed. [email or web address] [place] [address], [place], [address], 01/21/2024 18:13:45 01/21/20 24 01/21/2024 US, obste tric, follo w-up No observ ation record ed. [email or web address] [address], [place], [address], 01/21/2024 18:02:27 03/17/20 24 03/17/2024 US, obste tric, 2nd or 3rd trime ster No observ ation record ed. [email or web address] [place] [address], [place], [address], 03/17/2024 18:00:40 03/17/20 24 03/17/2024 US, obste tric, 2nd or 3rd trime ster No observ ation record ed. [email or web address] [address], [place], [address], 03/17/2024 21:29:59 03/17/20 24 03/17/2024 US, obste tric, 2nd or 3rd trime ster No observ ation record ed. [email or web address] [address], [place], [address], 03/17/2024 21:29:58 05/12/20 24 05/12/2024 US, obste tric, follo w-up No observ ation record ed. [email or web address] [address], [place], [address], 05/12/2024 12:28:02 05/12/20 24 05/12/2024 US, obste tric, follo w-up No observ ation record ed. [email or web address] [address], [place], [address], 2024 14:27:07 06/09/20 24 06/09/2024 US, obste tric, follo w-up No observ ation record ed. [email or web address] [place] [address], [place], [address], 06/09/2024 18:21:25 06/09/20 24 06/09/2024 US, obste tric, follo w-up No observ ation record ed. [email or web address] [address], [place], [address], 06/09/2024 23:15:46 06/30/20 24 06/30/2024 US, obste tric, bioph ysica l profi le + non-s tress test No observ ation record ed. [facility] [address], [place], [address], 06/30/2024 14:24:56 06/30/20 24 06/30/2024 US, obste tric, follo w-up No observ ation record ed. [email or web address] [address], [place], [address], 07/01/2024 18:39:43 07/02/20 24 07/02/2024 non-s tress test No observ ation record ed. [email or web address] [place] [address], [place], [address], 07/02/2024 19:37:01 07/02/20 non-s tress test No observ ation record ed. [email or web address] [place] [address], [place], [address], 07/02/2024 19:38:57 07/06/20 24 07/06/2024 non-s tress test No observ ation record ed. [address], [place], [address], 07/06/2024 15:30:22 07/07/20 24 07/07/2024 US, obste tric, bioph ysica l profi le + non-s tress test No observ ation record ed. [facility] [address], [place], [address], 07/07/2024 13:11:20 07/07/20 24 07/07/2024 US, obste tric, follo w-up No observ ation record ed. [email or web address] [place] [address], [place], [address], 07/07/2024 13:11:30 07/07/20 24 07/07/2024 US, obste tric, follo w-up No observ ation record ed. [address], [place], [address], 07/08/2024 09:12:23 07/07/20 24 07/07/2024 non-s tress test No observ ation record ed. [email or web address] [place] [address], [place], [address], 07/07/2024 14:50:51 Result Notes None recorded. Problems Name Problem SNOMED Code Status Onset Date Resolution Date Notes Provider Name and Address Organization Details Recorded Time Pregnanc y 66595705 Completed 202307/19/2024 Whit Cabrera [facility], [facility] 4 17:45:12 Primary infertil ity 351008461 Completed [address] [place], [address], [facility] 4 14:44:04 Artifici al insemina tion Completed IUI by Sp [address], [place], [address], [facility] 4 14:44:04 Disorder of thyroid gland 01538127 Completed followed by endocrin e on unithroi d daily [address], [place], [address], [facility] 4 14:44:04 Problem Notes None recorded. Procedures Surgical History Date Name Laterality Status Provider Name and Address Organization Details Recorded Time 07/12/20 24 SECTION (SURG) completed [facility] 07/14/2024 20:00:50 12/24/19 24 Date of Last Pap Smear completed [facility] 12/24/2023 14:16:42 11/11/19 24 intrauterine artificial insemination completed [facility] 11/11/2023 10:01:37 Imaging Results None recorded. [...] (supplie d by patient from pharmacy lot [id number] Exp 06/15/20 24 Not Available Not Available [...] Not Available Vitals Date Recorded Body weight Systolic blood pressure Diastolic blood pressure Provider Name and Address Organization Details Last Updated DateTime 06/30/2024 557767.162 79 g 148 mm[Hg] 85 mm[Hg] Gwen Glass [facility] 06/30/2024 12:30:49 Social History Question Answer Notes LastModified by Organizat ion Details LastModified Time Tobacco Smoking Status Never Smoker Violet Mac junie, [facility] 12/25/2022 15:25:08 Do You Have An Advance Directive? No [email or web address] Information n ot available 08/01/2021 What Is Your Level Of Alcohol Consumption? None [email or web address] Information not available 08/01/2021 Are You Blind Or Do You Have Difficulty Seeing? No [email or web address] Information n ot available 08/01/2021 What Is Your Level Of Caffeine Consumption? Moderate [email or web address] Information not available 08/01/2021 In The 14 Days Before Symptom Onset, Have You Had Close Contact With A Laboratory-confirm ed COVID-19 While That Case Was Ill? No [email or web address] Information n ot available 08/01/2021 In The 14 Days Before Symptom Onset, Have You Had Close Contact With A Person Who Is Under Investigation For COVID-19 While That Person Was Ill? No [email or web address] Information not available 08/01/2021 Have You Been To An Area Known To Be High Risk For COVID-19? No [email or web address] Information not available 08/01/2021 Are You Deaf Or Do You Have Serious Difficulty Hearing? No [email or web address] Information not available 08/01/2021 What Type Of Diet Are You Following? REGULAR [email or web address] Information n ot available 08/01/2021 What Is The Highest Grade Or Level Of School You Have Completed Or The Highest Degree You Have Received? 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 No [email or web address] Information not available 08/01/2021 Do You Use Protection During Sex? Always [email or web address] Information not available 08/01/2021 Do You Use Your Seat Belt Or Car Seat Routinely? Yes [email or web address] Information not available 08/01/2021 Do You Have Smoke And Carbon Monoxide Detectors In Your Home? Yes [email or web address] Information not available 08/01/2021 How Much Tobacco Do You Smoke? No [email or web address] Information not available 08/01/2021 Do You Feel Stressed (tense, Restless, Nervous, Or Anxious, Or Unable To Sleep At Night)? [id number] Information not available 08/01/2021 Do You Use Any Illicit Or Recreational Drugs? No [email or web address] Information not available 08/01/2021 Do You Use Sunscreen Routinely? Yes [email or web address] Information not available 08/01/2021 Has Tobacco Cessation Counseling Been Provided? No [email or web address] Information not available 12/25/2022 Have You Used IV Drugs? No [email or web address] Information not available 08/01/2021 Do You Or Have You Ever Used Any Other Forms Of Tobacco Or Nicotine? No [email or web address] Information not available 12/25/2022 Sex: Unknown Functional Status Question Answer Note LastModified by Organizat ion Details LastModified Time Do you have difficulty walking or climbing stairs? No [email or web address] Information not available 12/25/2022 Are you able to walk? YESWOREST [email or web address] Information not available 08/01/2021 Are you able to care for yourself? Yes [email or web address] Information not available 12/25/2022 Do you have difficulty dressing or bathing? No [email or web address] Information not available 12/25/2022 What is your exercise level? Moderate [email or web address] Information not available 08/01/2021 Mental Status None recorded. Family History Relationship Description Onset Age of this Age Resolved Age Notes LastModified by Organization Details LastModified Time Maternal Grandmother Disorder of thyroid gland [email or web address] Not available 08/01 09:54:58 Mother Asthma Not available 08/01/2021 09:54:58 Mother Disorder of thyroid gland [email or web address] Not available 08/01 09:54:58 Paternal Grandmother Heart disease Not available 08/01 09:54:58 Medical History Condition Response Allergies (Food, seasonal, environmental ) Y Other Y Breast Cancer N Drug/Latex Allergies/Reactions N Blood Transfusion N Dermatologic Disorders N Lung Disease N Defects or Inherited Disease N Breast Problem N Gestational Diabetes N Hematologic disorders N Anesthesia Complications N History of STI N Deep Vein Thrombosis N Polycystic ovary syndrome N Anxiety Disorder N Autoimmune disease N Arthritis N Infertility N Polyps N Acid Reflux (GERD) N History of abnormal pap N Cancer N Stroke N Varicosities N Neurologic/Epilepsy N Endometriosis N High Cholesterol N Headaches N Fibromyalgia N Kidney Disease N Heart Problems N Kidney or Bladder Problems N Thyroid Problems Y GI Problems N Eating Disorder N Anemia [...] Diagnosis/Indication Diagnosis SNOMED-CT Code Diagnosis ICD10 Code [id number] Clari Vanessa [place] [address],[facility] [place] [address] 06/09/2024 13:18:21 06/09/2024 13:58:19 IVF - in-vitro fertilization 9607884155 2102 O09.819 O99.213 Z3A.32 [id number] [facility] [address] [facility] [place] [address] 06/09/2024 13:18:51 06/09/2024 14:52:39 Gestation period, 32 weeks 8419842 Z3A.32 [id number] Trish Persaud [place] [address] [facility] [place] [address] 06/30/2024 11:34:33 06/30/2024 12:14:08 Maternal obesity complicating , childbirth and the puerperium, antepartum 2466124257 07 O99.213 Z3A.35 [id number] Marilyn Willams CNM [place] [address] [address] 06/30/2024 11:35:18 06/30/2024 16:28:29 Gestation period, 35 weeks 60504580 Z3A.35 Health Concerns Section Related Observation LastModified by Organization Detai ls LastModified Time None Recorded Concern Status LastModified by Organization Details LastModified Time None Recorded Payers Encounter Date Sequence Insurance Name Policy Number Policy Leos Covered Member ID Leos Member ID Guarantor Name 06/30/2024 1 [facility] [employer] [employer] [id number] Gold Villatoro [id number] Annabel Villatoro OBGyn Episode Ob Episode Information Episode Created Date Number of Fetuses Patient Bloodtype Patient rh Status Prepregnancy Weight lbs Domestic Partner Domestic Partner Phone Father Name Piece Presser Status 01/21/20 24 1 B Positive 237 Gold Bautista on CLOSED Fetus Data First Name Last Name Admitted to NICU Weight (g) Sex Living Outcome Pediatric Complications Fetus ID Race Codes Race Delivery Type Tommy 2778.25 1 M [id number] Primary Problems Problem Notes +GBS Problem Name Start Date End Date Resolution Snomed Code Not e Disorder of thyroid gland 62734590 followed by endocrine on unithroid daily Primary infertility 442470711 Artificial insemination 597626 08 IUI by Sp Eugene Calculation EUGENE [...] Sound Latest Days Gestation 01/21/20 24 12 [email or web address] 01/21/2024 07/31/19 25 3 Pre-sean Flowsheet Flowsheet Date 01/21/2024 Castaneda Score Blood Edema Fundus Height Fundus Units Glucose Ketones Leukocytes Nitrite Labor Signs Protein Cervic Dilation Cervic Effacement Cervic Station none Type Weight in lbs Pre/Post Dialysis Refused Weight 236.074834009618 BP Diastolic BP Location Tested BP Systolic BP Type 84 131 Fetus Heart Rate Present Fetus Movement A No Comments Patient is having round liga ment pain. reviewed US, precautions and education, IUI done in the office, on pnv, sees an wellness coach regularly, labs with NIPS today, routine care Flowsheet Date 02/18/2024 Castaneda Score Blood Edema Fundus Height Fundus Units Glucose Ketones Leukocytes Nitrite Labor Signs Protein Cervic Dilation Cervic Effacement Cervic Station trace Type Weight in lbs Pre/Post Dialysis Refused Weight 240.942031036561 BP Diastolic BP Location Tested BP Systolic BP Type 78 133 Fetus Heart Rate Present A 154 Present Fetus Movement A Yes Comments Patient is having some pain and swelling. 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 +FM, plan gct and growth next visit, education and precautionsfamily dr tafoya peds, wants circumcision, f/u 4 weeks Flowsheet [...] Type Weight in lbs Pre/Post Dialysis Refused 253.884769856965 BP Diastolic BP Location Tested BP Systolic [...] Type Weight in lbs Pre/Post Dialysis Refused 253.226254971772 BP Diastolic BP Location Tested BP Systolic [...] Type Weight in lbs Pre/Post Dialysis Refused 260.948535829718 BP Diastolic BP Location Tested BP Systolic [...] Type Weight in lbs Pre/Post Dialysis Refused 267.483743567410 BP Diastolic BP Location Tested BP Systolic [...] Weight in lbs Pre/Post Dialysis Refused Weight 267.950288541608 BP Diastolic BP Location Tested BP Systolic BP Type 111 164 98 168 Fetus Heart Rate Present Fetus Movement Comments Flowsheet Date 07/02/2024 Castaneda Score Blood Edema Fundus Height Fundus Units Glucose Ketones Leukocytes Nitrite Labor Signs Protein Cervic Dilation Cervic Effacement Cervic Station trace Type Weight in lbs Pre/Post Dialysis Refused 267.300789628087 BP Diastolic BP Location Tested BP Systolic [...] Type Weight in lbs Pre/Post Dialysis Refused 266.562408210450 BP Diastolic BP Location Tested BP Systolic [...] Weight in lbs Pre/Post Dialysis Refused Weight 241.786151726135 BP Diastolic BP Location Tested BP Systolic [...] At Estimated Date of Delivery false Thalassemia (Azeri, Maltese, Mediterranean, Or Background): MCV < 80 false Neural Tube Defect (Meningom yelocele, Spina Bifida, Or Anencephaly) false Congenital Heart Defect false Down Syndrome false Kwadwo-Sachs (eg, Christianity, Cajun, Romanian-[place]) f alse Dorita Disease false Sickle Cell Disease Or Trait () false Hemophilia Or Other Blood Disorders false Muscular Dystrophy false Cystic Fibrosis false [place]'s Chorea false Intellectual Disability/Autism false If Yes, [...]
--- OUTSIDE RECORDS SUMMARY | 2024-07-19 16:52 | XMS_ITS | Continuity of Care Document ---
Author Organization [facility] Address [address] [place] [address] [place] [address] Care Team Providers Care Flatwork Feeder Name Role Phone [facility] Primary Care Provider JERALD FRANKS Primary Care Provider Assessment No assessment recorded. Plan of Treatment Reminders Order Date Submit Date Provider Last Modified By Organization Details Last Modified Time Details Appointments SURG POST OP 024 04:30PM Robert YOO MD Not available Not available Not available Lab None record ed. Referral None record ed. Procedures None record ed. Surgeries None record ed. Imaging non-st ress test 024 07/02/20 24 [email or web address] [facility], [address], [place], [address], 07/05/2024 09:39:47 Medication Orders None record ed. Patient TargetsNo targets recorded. Patient InstructionsNo instructions recorded. Reason for Referral None Reported. Results Created Date Observation Date Name Description Value Unit Range Abnormal Flag Note LastModifiedBy Organization Detail LastModifiedTime 01/21/20 24 01/21/2024 US, obste tric, nucha l trans lucen cy No observ ation record ed. [email or web address] [facility] [address], [place], [address], 01/21/2024 18:13:45 01/21/20 24 01/21/2024 US, obste tric, follo w-up No observ ation record ed. [email or web address] [address] [address], [place], [address], 01/21/2024 18:02:27 03/17/20 24 03/17/2024 US, obste tric, 2nd or 3rd trime ster No observ ation record ed. [email or web address] [facility] [address], [place], [address], 03/17/2024 18:00:40 03/17/20 24 03/17/2024 US, obste tric, 2nd or 3rd trime ster No observ ation record ed. [email or web address] [address] [address], [place], [address], 03/17/2024 21:29:59 03/17/20 24 03/17/2024 US, obste tric, 2nd or 3rd trime ster No observ ation record ed. [email or web address] [address] [address], [place], [address], 03/17/2024 21:29:58 05/12/20 24 05/12/2024 US, obste tric, follo w-up No observ ation record ed. [email or web address] [address], [place], [address], 05/12/2024 12:28:02 05/12/20 24 05/12/2024 US, obste tric, follo w-up No observ ation record ed. [email or web address] [address], [place], [address], 2024 14:27:07 06/09/20 24 06/09/2024 US, obste tric, follo w-up No observ ation record ed. [email or web address] [facility] [address], [place], [address], 06/09/2024 18:21:25 06/09/20 24 06/09/2024 US, obste tric, follo w-up No observ ation record ed. [email or web address] [address], [place], [address], 06/09/2024 23:15:46 06/30/20 24 06/30/2024 US, obste tric, bioph ysica l profi le + non-s tress test No observ ation record ed. [facility] [address], [place], [address], 06/30/2024 14:24:56 06/30/20 24 06/30/2024 US, obstfarzad tric, follo w-up No observ ation record ed. [email or web address] [address], [place], [address], 07/01/2024 18:39:43 07/02/20 24 07/02/2024 non-s tress test No observ ation record ed. [email or web address] [facility] [address], [place], [address], 07/02/2024 19:37:01 07/02/20 non-s tress test No observ ation record ed. [email or web address] [facility] [address], [place], [address], 07/02/2024 19:38:57 07/06/20 24 07/06/2024 non-s tress test No observ ation record ed. [address] [facility] [address], [place], [address], 07/06/2024 15:30:22 07/07/20 24 07/07/2024 US, obste tric, bioph ysica l profi le + non-s tress test No observ ation record ed. [facility] [address], [place], [address], 07/07/2024 13:11:20 07/07/20 24 07/07/2024 US, obste tric, follo w-up No observ ation record ed. [email or web address] [facility] [address], [place], [address], 07/07/2024 13:11:30 07/07/20 24 07/07/2024 US, obste tric, follo w-up No observ ation record ed. [email or web address] [address] [address], [place], [address], 07/08/2024 09:12:23 07/07/20 24 07/07/2024 non-s tress test No observ ation record ed. [email or web address] [facility] [address], [place], [address], 07/07/2024 14:50:51 Result Notes None recorded. Problems Name Problem SNOMED Code Status Onset Date Resolution Date Notes Provider Name and Address Organization Details Recorded Time Pregnanc y 27277082 Completed 202307/19/2024 [facility]it [facility], [facility] 4 17:45:12 Primary infertil ity 100603649 Completed [address], [place], [address], [facility] 4 14:44:04 Artifici al insemina tion Completed IUI by Sp [address], [place], [address], [facility] 4 14:44:04 Disorder of thyroid gland 78300132 Completed followed by endocrin e on unithroi d daily [address], [place], [address], [facility] 4 14:44:04 Problem Notes None recorded. Procedures Surgical History Date Name Laterality Status Provider Name and Address Organization Details Recorded Time 07/12/20 24 SECTION (SURG) completed Gwen Glass [facility] 07/14/2024 20:00:50 12/24/19 24 Date of Last Pap Smear completed Gwen Glass [facility] 12/24/2023 14:16:42 11/11/19 24 intrauterine artificial insemination [facility] [place] [facility] 11/11/2023 10:01:37 Imaging Results Imaging Date Name Status LastModified by Organiz ation Details LastModified Time 07/02/2024 non-stress test completed [email or web address] [facility] [address], [place], [address], 07/02/2024 19:37:01 Procedure Notes None recorded. Medical Equipment None [...] (supplie d by patient from pharmacy lot [id number] Exp 06/15/20 24 Not Available Not Available [...] Address Organization Details Last Updated DateTime 4 456647. 02185 g 43.1 kg/m2 167.64 cm 167.64 cm 43.1 kg/m2 750000. 16 g 164 mm[Hg] 111 mm[Hg] 168 mm[Hg] 98 mm[Hg] 164 mm[Hg] 111 mm[Hg] 168 mm[Hg] 98 mm[Hg] Gwen Glass [facility] 4 19:31:12 Social History Question Answer Notes LastModified by Organizat ion Details LastModified Time Tobacco Smoking Status Never Smoker Violet Mac junie, [facility] 12/25/2022 15:25:08 Do You Have An Advance Directive? No [email or web address] Information n ot available 08/01/2021 What Is Your Level Of Alcohol Consumption? None [email or web address] Information not available 08/01/2021 Are You Blind Or Do You Have Difficulty Seeing? No [email or web address] Information n ot available 08/01/2021 What Is Your Level Of Caffeine Consumption? Moderate [email or web address] Information not available 08/01/2021 In The 14 Days Before Symptom Onset, Have You Had Close Contact With A Laboratory-confirm ed COVID-19 While That Case Was Ill? No [email or web address] Information n ot available 08/01/2021 In The 14 Days Before Symptom Onset, Have You Had Close Contact With A Person Who Is Under Investigation For COVID-19 While That Person Was Ill? No [email or web address] Information not available 08/01/2021 Have You Been To An Area Known To Be High Risk For COVID-19? No Information not available 08/01/2021 Are You Deaf Or Do You Have Serious Difficulty Hearing? No [email or web address] Information not available 08/01/2021 What Type Of Diet Are You Following? REGULAR [email or web address] Information n ot available 08/01/2021 What Is The Highest Grade Or Level Of School You Have Completed Or The Highest Degree You Have Received? 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 No [email or web address] Information not available 08/01/2021 Do You Use Protection During Sex? Always [email or web address] Information not available 08/01/2021 Do You Use Your Seat Belt Or Car Seat Routinely? Yes [email or web address] Information not available 08/01/2021 Do You Have Smoke And Carbon Monoxide Detectors In Your Home? Yes [email or web address] Information not available 08/01/2021 How Much Tobacco Do You Smoke? No [email or web address] Information not available 08/01/2021 Do You Feel Stressed (tense, Restless, Nervous, Or Anxious, Or Unable To Sleep At Night)? [id number] [email or web address] Information not available 08/01/2021 Do You Use Any Illicit Or Recreational Drugs? No [email or web address] Information not available 08/01/2021 Do You Use Sunscreen Routinely? Yes [email or web address] Information not available 08/01/2021 Has Tobacco Cessation Counseling Been Provided? No [email or web address] Information not available 12/25/2022 Have You Used IV Drugs? No [email or web address] Information not available 08/01/2021 Do You Or Have You Ever Used Any Other Forms Of Tobacco Or Nicotine? No [email or web address] Information not available 12/25/2022 Sex: Unknown Functional Status Question Answer Note LastModified by Organizat ion Details LastModified Time Do you have difficulty walking or climbing stairs? No [email or web address] Information not available 12/25/2022 Are you able to walk? YESWOREST Information not available 08/01/2021 Are you able to care for yourself? Yes [email or web address] Information not available 12/25/2022 Do you have difficulty dressing or bathing? No Information not available 12/25/2022 What is your exercise level? Moderate [email or web address] Information not available 08/01/2021 Mental Status None recorded. Family History Relationship Description Onset Age of this Age Resolved Age Notes LastModified by Organization Details LastModified Time Maternal Grandmother Disorder of thyroid gland [email or web address] Not available 08/01 09:54:58 Mother Asthma [email or web address] Not available 08/01/2021 09:54:58 Mother Disorder of thyroid gland Not available 08/01 09:54:58 Paternal Grandmother Heart [...] Diagnosis/Indication Diagnosis SNOMED-CT Code Diagnosis ICD10 Code [id number] [address] [address] 06/09/2024 13:18:21 06/09/2024 13:58:19 IVF - in-vitro fertilization [id number] 2102 O09.819 O99.213 Z3A.32 [id number] Marilyn Willams [facility] [address],[place] [address] 06/09/2024 13:18:51 06/09/2024 14:52:39 Gestation period, 32 weeks 3727592 Z3A.32 [id number] Trish Persaud [facility] [address],[place] [address] 06/30/2024 11:34:33 06/30/2024 12:14:08 Maternal obesity complicating , childbirth and the puerperium, antepartum 2463032254 07 O99.213 Z3A.35 [id number] Marilyn Willams [facility] [address],[place] [address] 06/30/2024 11:35:18 06/30/2024 16:28:29 Gestation period, 35 weeks 57210300 Z3A.35 [id number] Gwen Glass [facility] [address],[place] [address] 07/02/2024 11:29:26 07/05/2024 09:39:47 care: history of infertility 938281629 O09.03 [id number] Marilyn Willams [facility] [address],[place] [address] 07/02/2024 11:29:43 07/02/2024 13:24:04 Routine care 164963214 Z34.92 Health Concerns Section Related Observation LastModified by Organization Detai ls LastModified Time None Recorded Concern Status LastModified by Organization Details LastModified Time None Recorded Payers Encounter Date Sequence Insurance Name Policy Number Policy Leos Covered Member ID Leos Member ID Guarantor Name 07/02/2024 1 [facility] [employer] [id number] Gold Villatoro [id number] Annabel Villatoro OBGyn Episode Ob Episode Information Episode Created Date Number of Fetuses Patient Bloodtype Patient rh Status Prepregnancy Weight lbs Domestic Partner Domestic Partner Phone Father Name School Coordinator Status 01/21/20 24 1 B Positive 237 Gold Bautista on CLOSED Fetus Data First Name Last Name Admitted to NICU Weight (g) Sex Living Outcome Pediatric Complications Fetus ID Race Codes Race Delivery Type Tommy 2778.25 1 M [id number] Primary Problems Problem Notes +GBS Problem Name Start Date End Date Resolution Snomed Code Not e Disorder of thyroid gland 94807737 followed by endocrine on unithroid daily Primary infertility 693607326 Artificial insemination 778199 08 IUI by Sp Eugene Calculation EUGENE [...] Sound Latest Days Gestation 01/21/20 24 12 [email or web address] 01/21/2024 07/31/19 25 3 Pre- Flowsheet Flowsheet Date 01/21/2024 Castaneda Score Blood Edema Fundus Height Fundus Units Glucose Ketones Leukocytes Nitrite Labor Signs Protein Cervic Dilation Cervic Effacement Cervic Station none Type Weight in lbs Pre/Post Dialysis Refused Weight 236.815384469962 BP Diastolic BP Location Tested BP Systolic BP Type 84 131 Fetus Heart Rate Present Fetus Movement A No Comments Patient is having round liga ment pain. reviewed US, precautions and education, IUI done in the office, on pnv, sees an network control supervisor regularly, labs with [facility] today, routine care Flowsheet Date 02/18/2024 Castaneda Score Blood Edema Fundus Height Fundus Units Glucose Ketones Leukocytes Nitrite Labor Signs Protein Cervic Dilation Cervic Effacement Cervic Station trace Type Weight in lbs Pre/Post Dialysis Refused Weight 240.198003172468 BP Diastolic BP Location Tested BP Systolic BP Type 78 133 Fetus Heart Rate Present A 154 Present Fetus Movement A Yes Comments Patient is having some pain and swelling. 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 and will look at classes, f/u 4 [...] Type Weight in lbs Pre/Post Dialysis Refused 242.056932358899 BP Diastolic BP Location Tested BP Systolic [...] Type Weight in lbs Pre/Post Dialysis Refused 250.348165556462 BP Diastolic BP Location Tested BP Systolic [...] Type Weight in lbs Pre/Post Dialysis Refused 253.995075537909 BP Diastolic BP Location Tested BP Systolic [...] Type Weight in lbs Pre/Post Dialysis Refused 253.611651909221 BP Diastolic BP Location Tested BP Systolic [...] Type Weight in lbs Pre/Post Dialysis Refused 260.971510555309 BP Diastolic BP Location Tested BP Systolic [...] Type Weight in lbs Pre/Post Dialysis Refused 267.940005104111 BP Diastolic BP Location Tested BP Systolic [...] Weight in lbs Pre/Post Dialysis Refused Weight 267.817908637851 BP Diastolic BP Location Tested BP Systolic BP Type 111 164 98 168 Fetus Heart Rate Present Fetus Movement Comments Flowsheet Date 07/02/2024 Castaneda Score Blood Edema Fundus Height Fundus Units Glucose Ketones Leukocytes Nitrite Labor Signs Protein Cervic Dilation Cervic Effacement Cervic Station trace Type Weight in lbs Pre/Post Dialysis Refused 267.197377744834 BP Diastolic BP Location Tested BP Systolic [...] Type Weight in lbs Pre/Post Dialysis Refused 266.368101526018 BP Diastolic BP Location Tested BP Systolic [...] Weight in lbs Pre/Post Dialysis Refused Weight 241.199362997516 BP Diastolic BP Location Tested BP Systolic [...] At Estimated Date of Delivery false Thalassemia (Kosovan, Rwandan, Mediterranean, Or Background): MCV < 80 false Neural Tube Defect (Meningom yelocele, Spina Bifida, Or Anencephaly) false Congenital Heart Defect false Down Syndrome false Kwadwo-Sachs (eg, Druze, Cajun, Upper Sorbian-Japanese) f alse Dorita Disease false Sickle Cell Disease Or Trait () false Hemophilia Or Other Blood Disorders false Muscular Dystrophy false Cystic Fibrosis false [place] false Intellectual Disability/Autism false If Yes, [...]
--- OUTSIDE RECORDS SUMMARY | 2024-07-19 16:52 | XMS_ITS | Continuity of Care Document ---
Author Organization [facility] [place] Address [address] [place] [address] Care Team Providers Care Supervisor Dehydrogenation Name Role Phone [facility] Primary Care Provider JERALD FRANKS Primary Care Provider Assessment Encounter Date Assessment Date Assessment LastModified by Organization Details LastModified Time 07/02/2024 07/02/2024 Patient is __35_weeks . Discussed plan. Not available 07/02/2024 13:06:19 Plan of Treatment Reminders Order Date Submit [...] Abnormal Flag Note LastModifiedBy Organization Detail LastModifiedTime 01/21/2001/21/2024 US, obste tric, nucha l trans lucen cy No observ ation record ed. [email or web address] [place] [address], [place], [address], 01/21/2024 18:13:45 01/21/20 24 01/21/2024 US, obste tric, follo w-up No observ ation record ed. [email or web address] [address], [place], [address], 01/21/2024 18:02:27 03/17/20 24 03/17/2024 US, obste tric, 2nd or 3rd trime ster No observ ation record ed. [email or web address] [place] [address], [place], [address], 03/17/2024 18:00:40 03/17/20 24 03/17/2024 US, obste tric, 2nd or 3rd trime ster No observ ation record ed. [email or web address] [address], [place], [address], 03/17/2024 21:29:59 03/17/20 24 03/17/2024 US, obste tric, 2nd or 3rd trime ster No observ ation record ed. [email or web address] [address], [place], [address], 03/17/2024 21:29:58 05/12/20 24 05/12/2024 US, obste tric, follo w-up No observ ation record ed. [facility] [address], [place], [address], 05/12/2024 12:28:02 05/12/20 24 05/12/2024 US, obste tric, follo w-up No observ ation record ed. [email or web address] [address], [place], [address], 2024 14:27:07 06/09/20 24 06/09/2024 US, obste tric, follo w-up No observ ation record ed. [email or web address] [place] [address], [place], [address], 06/09/2024 18:21:25 06/09/20 24 06/09/2024 US, obste tric, follo w-up No observ ation record ed. [email or web address] [address], [place], [address], 06/09/2024 23:15:46 06/30/20 24 06/30/2024 US, obste tric, bioph ysica l profi le + non-s tress test No observ ation record ed. [facility] [address], [place], [address], 06/30/2024 14:24:56 06/30/20 24 06/30/2024 US, obste tric, follo w-up No observ ation record ed. [email or web address] [address], [place], [address], 07/01/2024 18:39:43 07/02/20 24 07/02/2024 non-s tress test No observ ation record ed. [email or web address] [place] [address], [place], [address], 07/02/2024 19:37:01 07/02/20 non-s tress test No observ ation record ed. [email or web address] [place] [address], [place], [address], 07/02/2024 19:38:57 07/06/20 24 07/06/2024 non-s tress test No observ ation record ed. [address], [place], [address], 07/06/2024 15:30:22 07/07/20 24 07/07/2024 US, obste tric, bioph ysica l profi le + non-s tress test No observ ation record ed. [facility] [address], [place], [address], 07/07/2024 13:11:20 07/07/20 24 07/07/2024 US, obste tric, follo w-up No observ ation record ed. [email or web address] [place] [address], [place], [address], 07/07/2024 13:11:30 07/07/20 24 07/07/2024 US, obste tric, follo w-up No observ ation record ed. [email or web address] [address], [place], [address], 07/08/2024 09:12:23 07/07/20 24 07/07/2024 non-s tress test No observ ation record ed. [email or web address] [place] [address], [place], [address], 07/07/2024 14:50:51 Result Notes None recorded. Problems Name Problem SNOMED Code Status Onset Date Resolution Date Notes Provider Name and Address Organization Details Recorded Time Pregnanc y 28370550 Completed 202307/19/2024 Whit Cabrera [facility], [facility] 4 17:45:12 Primary infertil ity 600859985 Completed [address], [place], [address], [facility] 4 14:44:04 Artifici al insemina tion Completed IUI by Sp [address], [place], [address], [facility] 4 14:44:04 Disorder of thyroid gland 66908499 Completed followed by endocrin e on unithroi d daily [address], [place], [address], [facility] 4 14:44:04 Problem Notes None recorded. Procedures Surgical History Date Name Laterality Status Provider Name and Address Organization Details Recorded Time 07/12/20 24 SECTION (SURG) completed [facility] 07/14/2024 20:00:50 12/24/19 24 Date of Last Pap Smear completed [facility] 12/24/2023 14:16:42 11/11/19 24 intrauterine artificial insemination completed [facility] 11/11/2023 10:01:37 Imaging Results None [...] (supplie d by patient from pharmacy lot [id number] Exp 06/15/20 24 Not Available Not Available [...] Address Organization Details Last Updated DateTime 4 650119. 31633 g 43.1 kg/m2 167.64 cm 167.64 cm 43.1 kg/m2 665679. 16 g 164 mm[Hg] 111 mm[Hg] 168 mm[Hg] 98 mm[Hg] 164 mm[Hg] 111 mm[Hg] 168 mm[Hg] 98 mm[Hg] Gwen Glass [facility] 4 19:31:12 Social History Question Answer Notes LastModified by Organizat ion Details LastModified Time Tobacco Smoking Status Never Smoker Violet Mac junie, [facility] 12/25/2022 15:25:08 Do You Have An Advance Directive? No [email or web address] Information n ot available 08/01/2021 What Is Your Level Of Alcohol Consumption? None [email or web address] Information not available 08/01/2021 Are You Blind Or Do You Have Difficulty Seeing? No Information n ot available 08/01/2021 What Is Your Level Of Caffeine Consumption? Moderate [email or web address] Information not available 08/01/2021 In The 14 Days Before Symptom Onset, Have You Had Close Contact With A Laboratory-confirm ed COVID-19 While That Case Was Ill? No [email or web address] Information n ot available 08/01/2021 In The 14 Days Before Symptom Onset, Have You Had Close Contact With A Person Who Is Under Investigation For COVID-19 While That Person Was Ill? No [email or web address] Information not available 08/01/2021 Have You Been To An Area Known To Be High Risk For COVID-19? No [email or web address] Information not available 08/01/2021 Are You Deaf Or Do You Have Serious Difficulty Hearing? No [email or web address] Information not available 08/01/2021 What Type Of Diet Are You Following? REGULAR [email or web address] Information n ot available 08/01/2021 What Is The Highest Grade Or Level Of School You Have Completed Or The Highest Degree You Have Received? 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 No [email or web address] Information not available 08/01/2021 Do You Use Protection During Sex? Always [email or web address] Information not available 08/01/2021 Do You Use Your Seat Belt Or Car Seat Routinely? Yes [email or web address] Information not available 08/01/2021 Do You Have Smoke And Carbon Monoxide Detectors In Your Home? Yes [email or web address] Information not available 08/01/2021 How Much Tobacco Do You Smoke? No [email or web address] Information not available 08/01/2021 Do You Feel Stressed (tense, Restless, Nervous, Or Anxious, Or Unable To Sleep At Night)? [id number] Information not available 08/01/2021 Do You Use Any Illicit Or Recreational Drugs? No [email or web address] Information not available 08/01/2021 Do You Use Sunscreen Routinely? Yes [email or web address] Information not available 08/01/2021 Has Tobacco Cessation Counseling Been Provided? No [email or web address] Information not available 12/25/2022 Have You Used IV Drugs? No [email or web address] Information not available 08/01/2021 Do You Or Have You Ever Used Any Other Forms Of Tobacco Or Nicotine? No Information not available 12/25/2022 Sex: Unknown Functional Status Question Answer Note LastModified by Organizat ion Details LastModified Time Do you have difficulty walking or climbing stairs? No [email or web address] Information not available 12/25/2022 Are you able to walk? YESWOREST [email or web address] Information not available 08/01/2021 Are you able to care for yourself? Yes [email or web address] Information not available 12/25/2022 Do you have difficulty dressing or bathing? No [email or web address] Information not available 12/25/2022 What is your exercise level? Moderate [email or web address] Information not available 08/01/2021 Mental Status None recorded. Family History Relationship Description Onset Age of this Age Resolved Age Notes LastModified by Organization Details LastModified Time Maternal Grandmother Disorder of thyroid gland [email or web address] Not available 08/01 09:54:58 Mother Asthma [email or web address] Not available 08/01/2021 09:54:58 Mother Disorder of thyroid gland [email or web address] Not available 08/01 09:54:58 Paternal Grandmother Heart disease [email or web address] Not available 08/01 09:54:58 Medical History Condition [...] Diagnosis/Indication Diagnosis SNOMED-CT Code Diagnosis ICD10 Code [id number] Clari [facility] [address] [address] 06/09/2024 13:18:21 06/09/2024 13:58:19 IVF - in-vitro fertilization 9161301892 2102 O09.819 O99.213 Z3A.32 [id number] [facility] [address],[place] [address] 06/09/2024 13:18:51 06/09/2024 14:52:39 Gestation period, 32 weeks 4377570 Z3A.32 [id number] Trish Persaud [place] [address],[place] [address] 06/30/2024 11:34:33 06/30/2024 12:14:08 Maternal obesity complicating , childbirth and the puerperium, antepartum 5843129468 07 O99.213 Z3A.35 [id number] Marilyn Willams [facility] [address],[place] [address] 06/30/2024 11:35:18 06/30/2024 16:28:29 Gestation period, 35 weeks 42954426 Z3A.35 [id number] Gwen Glass [place] [address],[place] [address] 07/02/2024 11:29:26 07/05/2024 09:39:47 care: history of infertility 314605228 O09.03 [id number] Marilyn Willams [facility] [address],[place] [address] 07/02/2024 11:29:43 07/02/2024 13:24:04 Routine care 664440972 Z34.92 Health Concerns Section Related Observation LastModified by Organization Detai ls LastModified Time None Recorded Concern Status LastModified by Organization Details LastModified Time None Recorded Payers Encounter Date Sequence Insurance Name Policy Number Policy Leos Covered Member ID Leos Member ID Guarantor Name 07/02/2024 1 [facility] [employer] [id number] Gold Villatoro [id number] Annabel Villatoro OBGyn Episode Ob Episode Information Episode Created Date Number of Fetuses Patient Bloodtype Patient rh Status Prepregnancy Weight lbs Domestic Partner Domestic Partner Phone Father Name Gas 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 Compressors Status 01/21/20 24 1 B Positive 237 Gold Bautista on CLOSED Fetus Data First Name Last Name Admitted to NICU Weight (g) Sex Living Outcome Pediatric Complications Fetus ID Race Codes Race Delivery Type Tommy 2778.25 1 M [id number] Primary Problems Problem Notes +GBS Problem Name Start Date End Date Resolution Snomed Code Not e Disorder of thyroid gland 81809160 followed by endocrine on unithroid daily Primary infertility 023329233 Artificial insemination 699345 08 IUI by Sp Eugene Calculation EUGENE Calculation Method Initial Eugene Date Initial Exam Date Initial Exam Provider Initial Ultrasound Date Last Menstrual Period Date Ultra Sound Weeks Gestation Conception by IVF Embryo Age at Transfer Date of Transfer 07/31/1912/24/1912/11/2023 10/25/2023 6 Eighteen To Twenty Week Eugene Update Ultra Sound Date Fundal Height At Umbil Quickening Date Ultra Sound Latest Weeks Gestation Final Eugene Confirmed By Final Eugene Confirmed Date Final Eugene Date Ultra Sound Latest Days Gestation 01/21/20 24 12 [email or web address] 01/21/2024 07/31/19 25 3 Pre-sean Flowsheet Flowsheet Date 01/21/2024 Castaneda Score Blood Edema Fundus Height Fundus Units Glucose Ketones Leukocytes Nitrite Labor Signs Protein Cervic Dilation Cervic Effacement Cervic Station none Type Weight in lbs Pre/Post Dialysis Refused Weight 236.828370505617 BP Diastolic BP Location Tested BP Systolic BP Type 84 131 Fetus Heart Rate Present Fetus Movement A No Comments Patient is having round liga ment pain. reviewed US, precautions and education, IUI done in the office, on pnv, sees an teacher specialist regularly, labs with NIPS today, routine care Flowsheet Date 02/18/2024 Castaneda Score Blood Edema Fundus Height Fundus Units Glucose Ketones Leukocytes Nitrite Labor Signs Protein Cervic Dilation Cervic Effacement Cervic Station trace Type Weight in lbs Pre/Post Dialysis Refused Weight 240.309320915322 BP Diastolic BP Location Tested BP Systolic BP Type 78 133 Fetus Heart Rate Present A 154 Present Fetus Movement A Yes Comments Patient is having some pain and swelling. 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 as dishcloth folder and will look at classes, f/u 4 [...] Type Weight in lbs Pre/Post Dialysis Refused 242.541939258086 BP Diastolic BP Location Tested BP Systolic [...] Type Weight in lbs Pre/Post Dialysis Refused 250.855150849266 BP Diastolic BP Location Tested BP Systolic [...] Type Weight in lbs Pre/Post Dialysis Refused 253.107084592839 BP Diastolic BP Location Tested BP Systolic [...] Type Weight in lbs Pre/Post Dialysis Refused 253.622787652752 BP Diastolic BP Location Tested BP Systolic [...] Type Weight in lbs Pre/Post Dialysis Refused 260.611260544889 BP Diastolic BP Location Tested BP Systolic [...] Type Weight in lbs Pre/Post Dialysis Refused 267.630287273902 BP Diastolic BP Location Tested BP Systolic [...] Weight in lbs Pre/Post Dialysis Refused Weight 267.638069578649 BP Diastolic BP Location Tested BP Systolic BP Type 111 164 98 168 Fetus Heart Rate Present Fetus Movement Comments Flowsheet Date 07/02/2024 Castaneda Score Blood Edema Fundus Height Fundus Units Glucose Ketones Leukocytes Nitrite Labor Signs Protein Cervic Dilation Cervic Effacement Cervic Station trace Type Weight in lbs Pre/Post Dialysis Refused 267.338683485129 BP Diastolic BP Location Tested BP Systolic [...] Type Weight in lbs Pre/Post Dialysis Refused 266.009535756811 BP Diastolic BP Location Tested BP Systolic [...] Weight in lbs Pre/Post Dialysis Refused Weight 241.982719789202 BP Diastolic BP Location Tested BP Systolic [...] At Estimated Date of Delivery false Thalassemia (Lao, Bahamian, Mediterranean, Or Background): MCV < 80 false Neural Tube Defect (Meningom yelocele, Spina Bifida, Or Anencephaly) false Congenital Heart Defect false Down Syndrome false Kwadwo-Sachs (eg, Denominational, Cajun, Greek-Brookneal) f alse Dorita Disease false Sickle Cell [...]
--- OUTSIDE RECORDS SUMMARY | 2024-07-19 16:53 | XMS_ITS | Continuity of Care Document ---
Author Organization [facility] [place] Address [address] [place] [address] [place] [address] Care Team Providers Care Management Department Chair Name Role Phone [facility] Primary Care Provider [phone] JERALD FRANKS Primary Care Provider [phone] Assessment No assessment recorded. Plan of Treatment Reminders Order Date Submit Date Provider Last Modified By Organization Details Last Modified Time Details Appointments SURG POST OP 024 04:30PM Robert YOO MD Not available Not available Not available Lab None record ed. Referral None record ed. Procedures None record ed. Surgeries None record ed. Imaging US, obstet sammy, follow -up 024 06/09/20 24 [email or web address] [place], [address], [place], [address], 06/09/2024 22:05:47 Medication Orders None record ed. Patient TargetsNo targets recorded. Patient InstructionsNo instructions recorded. Reason for Referral None Reported. Results Created Date Observation Date Name Description Value Unit Range Abnormal Flag Note LastModifiedBy Organization Detail LastModifiedTime 01/21/20 24 01/21/2024 US, obste tric, nucha l trans lucen cy No observ ation record ed. [email or web address] [place] [address], [place], [address], 01/21/2024 18:13:45 01/21/20 24 01/21/2024 US, obste tric, follo w-up No observ ation record ed. [email or web address] [address] [address], [place], [address], 01/21/2024 18:02:27 03/17/20 24 03/17/2024 US, obste tric, 2nd or 3rd trime ster No observ ation record ed. [email or web address] [place] [address], [place], [address], 03/17/2024 18:00:40 03/17/20 24 03/17/2024 US, obste tric, 2nd or 3rd trime ster No observ ation record ed. [email or web address] [address] [address], [place], [address], 03/17/2024 21:29:59 03/17/20 24 03/17/2024 US, obste tric, 2nd or 3rd trime ster No observ ation record ed. [email or web address] [address] [address], [place], [address], 03/17/2024 21:29:58 05/12/20 24 05/12/2024 US, obste tric, follo w-up No observ ation [facility] ed. [email or web address] [address], [place], [address], 05/12/2024 12:28:02 05/12/20 24 05/12/2024 US, obste tric, follo w-up No observ ation record ed. [address] [address], [place], [address], 2024 14:27:07 06/09/20 24 06/09/2024 US, obste tric, follo w-up No observ ation record ed. [email or web address] [place] [address], [place], [address], 06/09/2024 18:21:25 06/09/20 24 06/09/2024 US, obste tric, follo w-up No observ ation record ed. [email or web address] [place] [address], [place], [address], 06/09/2024 23:15:46 06/30/20 24 06/30/2024 US, obste tric, bioph ysica l profi le + non-s tress test No observ ation record ed. [facility] [address], [place], [address], 06/30/2024 14:24:56 06/30/20 24 06/30/2024 US, obste tric, follo w-up No observ ation record ed. [email or web address] [place] [address], [place], [address], 07/01/2024 18:39:43 07/02/20 24 07/02/2024 non-s tress test No observ ation record ed. [email or web address] [place] [address], [place], [address], 07/02/2024 19:37:01 07/02/20 non-s tress test No observ ation record ed. [email or web address] [place] [address], [place], [address], 07/02/2024 19:38:57 07/06/20 24 07/06/2024 non-s tress test No observ ation record ed. [address] [facility] [address], [place], [address], 07/06/2024 15:30:22 07/07/20 24 07/07/2024 US, obste tric, bioph ysica l profi le + non-s tress test No observ ation record ed. [facility] [address], [place], [address], 07/07/2024 13:11:20 07/07/20 24 07/07/2024 US, obste tric, follo w-up No observ ation record ed. [email or web address] [place] [address], [place], [address], 07/07/2024 13:11:30 07/07/20 24 07/07/2024 US, obste tric, follo w-up No observ ation record ed. [email or web address] [place] [address], [place], [address], 07/08/2024 09:12:23 07/07/20 24 07/07/2024 non-s tress test No observ ation record ed. [email or web address] [place] [address], [place], [address], 07/07/2024 14:50:51 Result Notes None recorded. Problems Name Problem SNOMED Code Status Onset Date Resolution Date Notes Provider Name and Address Organization Details Recorded Time Pregnanc y 81969180 Completed 202307/19/2024 Whit zaman, [facility] 4 17:45:12 Primary infertil ity 192328534 Completed [address], [place], [address], [facility] 4 14:44:04 Artifici al insemina tion Completed IUI by Sp [address], [place], [address], [facility] 4 14:44:04 Disorder of thyroid gland 10863222 Completed followed by endocrin e on unithroi d daily [address], [place], [address], [facility] 4 14:44:04 Problem Notes None recorded. Procedures Surgical History Date Name Laterality Status Provider Name and Address Organization Details Recorded Time 07/12/20 24 SECTION (SURG) completed [facility] 07/14/2024 20:00:50 12/24/19 Date of Last Pap Smear completed [facility] 12/24/2023 14:16:42 11/11/19 24 intrauterine artificial insemination completed [facility] 11/11/2023 10:01:37 Imaging Results Imaging Date Name Status LastModified by Organiz ation Details LastModified Time 06/09/2024 US, obstetric, follow-up completed [email or web address] [place] [address], [place], [address], 06/09/2024 18:21:25 06/09/2024 US, obstetric, follow-up completed [email or web address] [address] [facility], [place], [address], 06/09/2024 23:15:46 Procedure Notes None recorded. Medical Equipment None [...] (supplie d by patient from pharmacy lot [id number] Exp 06/15/20 Not Available Not Available Not Available liothyron [...] height Systolic blood pressure Diastolic blood pressure Provider Name and Address Organization Details Last Updated DateTime 06/09/2024 008312.0 162 g 42 kg/m2 167.64 cm 133 mm[Hg] 84 mm[Hg] Gwen Glass [facility] 14:10:05 Social History Question Answer Notes LastModified by Organizat ion Details LastModified Time Tobacco Smoking Status Never Smoker Violet Mac junie, [facility] 12/25/2022 15:25:08 Do You Have An Advance Directive? No [email or web address] Information n ot available 08/01/2021 What Is Your Level Of Alcohol Consumption? None [email or web address] Information not available 08/01/2021 Are You Blind Or Do You Have Difficulty Seeing? No [email or web address] Information n ot available 08/01/2021 What Is Your Level Of Caffeine Consumption? Moderate [email or web address] Information not available 08/01/2021 In The 14 Days Before Symptom Onset, Have You Had Close Contact With A Laboratory-confirm ed COVID-19 While That Case Was Ill? No [email or web address] Information n ot available 08/01/2021 In The 14 Days Before Symptom Onset, Have You Had Close Contact With A Person Who Is Under Investigation For COVID-19 While That Person Was Ill? No [email or web address] Information not available 08/01/2021 Have You Been To An Area Known To Be High Risk For COVID-19? No [email or web address] Information not available 08/01/2021 Are You Deaf Or Do You Have Serious Difficulty Hearing? No [email or web address] Information not available 08/01/2021 What Type Of Diet Are You Following? REGULAR [email or web address] Information n ot available 08/01/2021 What Is The Highest Grade Or Level Of School You Have Completed Or The Highest Degree You Have Received? 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 No [email or web address] Information not available 08/01/2021 Do You Use Protection During Sex? Always [email or web address] Information not available 08/01/2021 Do You Use Your Seat Belt Or Car Seat Routinely? Yes [email or web address] Information not available 08/01/2021 Do You Have Smoke And Carbon Monoxide Detectors In Your Home? Yes [email or web address] Information not available 08/01/2021 How Much Tobacco Do You Smoke? No [email or web address] Information not available 08/01/2021 Do You Feel Stressed (tense, Restless, Nervous, Or Anxious, Or Unable To Sleep At Night)? [id number] [email or web address] Information not available 08/01/2021 Do You Use Any Illicit Or Recreational Drugs? No [email or web address] Information not available 08/01/2021 Do You Use Sunscreen Routinely? Yes [email or web address] Information not available 08/01/2021 Has Tobacco Cessation Counseling Been Provided? No [email or web address] Information not available 12/25/2022 Have You Used IV Drugs? No [email or web address] Information not available 08/01/2021 Do You Or Have You Ever Used Any Other Forms Of Tobacco Or Nicotine? No [email or web address] Information not available 12/25/2022 Sex: Unknown Functional Status Question Answer Note LastModified by Organizat ion Details LastModified Time Do you have difficulty walking or climbing stairs? No [email or web address] Information not available 12/25/2022 Are you able to walk? YESWOREST [email or web address] Information not available 08/01/2021 Are you able to care for yourself? Yes [email or web address] Information not available 12/25/2022 Do you have difficulty dressing or bathing? No [email or web address] Information not available 12/25/2022 What is your exercise level? Moderate [email or web address] Information not available 08/01/2021 Mental Status None recorded. Family History Relationship Description Onset Age of this Age Resolved Age Notes LastModified by Organization Details LastModified Time Maternal Grandmother Disorder of thyroid gland [email or web address] Not available 08/01 09:54:58 Mother Asthma [email or web address] Not available 08/01/2021 09:54:58 Mother Disorder of thyroid gland [email or web address] Not available 08/01 09:54:58 Paternal Grandmother Heart disease [email or web address] Not available 08/01 09:54:58 Medical History Condition Response Allergies (Food, seasonal, environmental ) Y Other Y Drug/Latex Allergies/Reactions N Breast Cancer N Blood Transfusion N Lung Disease N Dermatologic Disorders N Defects or Inherited Disease N Breast Problem N Gestational Diabetes N Hematologic disorders N Anesthesia Complications N History of STI N Deep Vein Thrombosis N Polycystic ovary syndrome N Anxiety Disorder N Autoimmune disease N Arthritis N Polyps N Infertility N History of abnormal pap N Acid Reflux (GERD) N Cancer N [...] Diagnosis/Indication Diagnosis SNOMED-CT Code Diagnosis ICD10 Code [id number] Cl[facility] [address],[place] [address] 05/12/2024 09:34:59 05/12/2024 10:09:12 Uterine size for dates discrepancy 003069301 O26.843 O09.813 Z3A.28 [id number] Marilyn Willams [facility] [address],[place] [address] 05/12/2024 09:35:15 05/12/2024 10:37:46 Gestation period, 28 weeks 86707938 Z3A.28 [id number] Marilyn Willams [facility] [address],[place] [address] 05/26/2024 13:59:11 05/26/2024 14:39:09 Routine care 575298483 Z34.92 [id number] Clari [facility] [address],[place] [address] 06/09/2024 13:18:21 06/09/2024 13:58:19 IVF - in-vitro fertilization 1633882963 2102 O09.819 O99.213 Z3A.32 [id number] Marilyn Willams [facility] [address],[place] [address] 06/09/2024 13:18:51 06/09/2024 14:52:39 Gestation period, 32 weeks 6046977 Z3A.32 Health Concerns Section Related Observation LastModified by Organization Detai ls LastModified Time None Recorded Concern Status LastModified by Organization Details LastModified Time None Recorded Payers Encounter Date Sequence Insurance Name Policy Number Policy Leos Covered Member ID Leos Member ID Guarantor Name 06/09/2024 1 [facility] [email or web address] [id number] Gold Villatoro [id number] Annabel Villatoro OBGyn Episode Ob Episode Information Episode Created Date Number of Fetuses Patient Bloodtype Patient rh Status Prepregnancy Weight lbs Domestic Partner Domestic Partner Phone Father Name Manufacturing Manager Status 01/21/20 24 1 B Positive 237 Gold Bautista on CLOSED Fetus Data First Name Last Name Admitted to NICU Weight (g) Sex Living Outcome Pediatric Complications Fetus ID Race Codes Race Delivery Type Tommy 2778.25 1 M [id number] Primary Problems Problem Notes +GBS Problem Name Start Date End Date Resolution Snomed Code Not e Disorder of thyroid gland 35611486 followed by endocrine on unithroid daily Primary infertility 139494660 Artificial insemination [id number] 08 IUI by Sp Eugene Calculation EUGENE [...] Sound Latest Days Gestation 01/21/20 24 12 01/21/2024 07/31/19 25 3 Pre-sean Flowsheet Flowsheet Date 01/21/2024 Castaneda Score Blood Edema Fundus Height Fundus Units Glucose Ketones Leukocytes Nitrite Labor Signs Protein Cervic Dilation Cervic Effacement Cervic Station none Type Weight in lbs Pre/Post Dialysis Refused Weight 236.887903468120 BP Diastolic BP Location Tested BP Systolic BP Type 84 131 Fetus Heart Rate Present Fetus Movement A No Comments Patient is having round liga ment pain. reviewed US, precautions and education, IUI done in the office, on pnv, sees an contract negotiation specialist regularly, labs with [facility] today, routine care Flowsheet Date 02/18/2024 Castaneda Score Blood Edema Fundus Height Fundus Units Glucose Ketones Leukocytes Nitrite Labor Signs Protein Cervic Dilation Cervic Effacement Cervic Station trace Type Weight in lbs Pre/Post Dialysis Refused Weight 240.224760912781 BP Diastolic BP Location Tested BP Systolic BP Type 78 133 Fetus Heart Rate Present A 154 Present Fetus Movement A Yes Comments Patient is having some pain and swelling. 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 and will look at classes, f/u 4 [...] Type Weight in lbs Pre/Post Dialysis Refused 242.503417850089 BP Diastolic BP Location Tested BP Systolic [...] Type Weight in lbs Pre/Post Dialysis Refused 250.678627434570 BP Diastolic BP Location Tested BP Systolic [...] Type Weight in lbs Pre/Post Dialysis Refused 253.105887081556 BP Diastolic BP Location Tested BP Systolic [...] Type Weight in lbs Pre/Post Dialysis Refused 253.522017878346 BP Diastolic BP Location Tested BP Systolic [...] Type Weight in lbs Pre/Post Dialysis Refused 260.923753404661 BP Diastolic BP Location Tested BP Systolic [...] Type Weight in lbs Pre/Post Dialysis Refused 267.914495445758 BP Diastolic BP Location Tested BP Systolic [...] Weight in lbs Pre/Post Dialysis Refused Weight 267.651066622247 BP Diastolic BP Location Tested BP Systolic BP Type 111 164 98 168 Fetus Heart Rate Present Fetus Movement Comments Flowsheet Date 07/02/2024 Castaneda Score Blood Edema Fundus Height Fundus Units Glucose Ketones Leukocytes Nitrite Labor Signs Protein Cervic Dilation Cervic Effacement Cervic Station trace Type Weight in lbs Pre/Post Dialysis Refused 267.798233374152 BP Diastolic BP Location Tested BP Systolic [...] Type Weight in lbs Pre/Post Dialysis Refused 266.799086207837 BP Diastolic BP Location Tested BP Systolic [...] Weight in lbs Pre/Post Dialysis Refused Weight 241.687605123866 BP Diastolic BP Location Tested BP Systolic [...] At Estimated Date of Delivery false Thalassemia (Solomon Islander, Lao, Mediterranean, Or Background): MCV < 80 false Neural Tube Defect (Meningom yelocele, Spina Bifida, Or Anencephaly) false Congenital Heart Defect false Down Syndrome false Kwadwo-Sachs (eg, Sikhism, Cajun, Wolof-Nicaraguan) f alse Dorita Disease false Sickle Cell Disease Or Trait () false Hemophilia Or Other Blood Disorders false Muscular Dystrophy false Cystic Fibrosis false [place]'s Chorea false Intellectual Disability/Autism false If Yes, [...]
--- OUTSIDE RECORDS SUMMARY | 2024-07-19 16:53 | XMS_ITS | Continuity of Care Document ---
Author Organization [facility] Sec[facility] Address [address] [place] [address] Care Team Providers Care Hop Trainer Name Role Phone [facility] Primary Care Provider [phone] JERALD FRANKS Primary Care Provider [phone] Assessment Encounter Date Assessment Date Assessment LastModified by Organization Details LastModified Time 06/09/2024 06/09/2024 Patient is __32_weeks . Discussed plan. Not available 06/09/2024 14:48:34 Plan of Treatment Reminders Order Date Submit [...] cy No observ ation record ed. [email or web address] [address], [place], [address], 01/21/2024 18:13:45 01/21/20 24 01/21/2024 US, obste tric, follo w-up No observ ation record ed. [email or web address] [address], [place], [address], 01/21/2024 18:02:27 03/17/20 24 03/17/2024 US, obste tric, 2nd or 3rd trime ster No observ ation record ed. [email or web address] [address], [place], [address], 03/17/2024 18:00:40 03/17/20 24 03/17/2024 US, obste tric, 2nd or 3rd trime ster No observ ation record ed. [email or web address] [address], [place], [address], 03/17/2024 21:29:59 03/17/20 24 03/17/2024 US, obste tric, 2nd or 3rd trime ster No observ ation record ed. [email or web address] [address], [place], [address], 03/17/2024 21:29:58 05/12/20 24 05/12/2024 US, obste tric, follo w-up No observ [facility]ion [facility] ed[email or web address] [address], [place], [address], 05/12/2024 12:28:02 05/12/20 24 05/12/2024 US, obste tric, follo w-up No observ ation record ed. [email or web address] [address], [place], [address], 2024 14:27:07 06/09/20 24 06/09/2024 US, obste tric, follo w-up No observ ation record ed. [email or web address] [address], [place], [address], 06/09/2024 18:21:25 06/09/20 24 06/09/2024 US, obste tric, follo w-up No observ ation record ed. [email or web address] [address], [place], [address], 06/09/2024 23:15:46 06/30/20 24 06/30/2024 US, obste tric, bioph ysica l profi le + non-s tress test No observ ation record ed. [facility] [address], [place], [address], 06/30/2024 14:24:56 06/30/20 24 06/30/2024 US, obste tric, follo w-up No observ ation record ed. [email or web address] [address], [place], [address], 07/01/2024 18:39:43 07/02/20 24 07/02/2024 non-s tress test No observ ation record ed. [email or web address] [address], [place], [address], 07/02/2024 19:37:01 07/02/20 non-s tress test No observ ation record ed. [email or web address] [address], [place], [address], 07/02/2024 19:38:57 07/06/20 24 07/06/2024 non-s tress test No observ ation record ed. [address], [place], [address], 07/06/2024 15:30:22 07/07/20 24 07/07/2024 US, obste tric, bioph ysica l profi le + non-s tress test No observ ation record ed. [facility] [address], [place], [address], 07/07/2024 13:11:20 07/07/20 24 07/07/2024 US, obste tric, follo w-up No observ ation record ed. [email or web address] [address], [place], [address], 07/07/2024 13:11:30 07/07/20 24 07/07/2024 US, obste tric, follo w-up No observ ation record ed. [email or web address] [address], [place], [address], 07/08/2024 09:12:23 07/07/20 24 07/07/2024 non-s tress test No observ ation record ed. [email or web address] [address], [place], [address], 07/07/2024 14:50:51 Result Notes None recorded. Problems Name Problem SNOMED Code Status Onset Date Resolution Date Notes Provider Name and Address Organization Details Recorded Time Pregnanc y 14590890 Completed 202307/19/2024 Whit Cabrera [facility], [facility] 4 17:45:12 Primary infertil ity 889722082 Completed [address], [place], [address], [facility] 4 14:44:04 Artifici al insemina tion Completed IUI by Sp [address], [place], [address], [facility] 4 14:44:04 Disorder of thyroid gland 86186071 Completed followed by endocrin e on unithroi d daily [address], [place], [address], [facility] 4 14:44:04 Problem Notes None recorded. Procedures Surgical History Date Name Laterality Status Provider Name and Address Organization Details Recorded Time 07/12/20 24 SECTION (SURG) completed [facility] 07/14/2024 20:00:50 12/24/19 24 Date of Last Pap Smear completed [facility] 12/24/2023 14:16:42 11/11/19 24 intrauterine artificial insemination completed [facility] 11/11/2023 10:01:37 Imaging Results None recorded. [...] (supplie d by patient from pharmacy lot [id number] Exp 06/15/20 24 Not Available Not Available [...] Address Organization Details Last Updated DateTime 06/09/2024 779235.0 162 g 42 kg/m2 167.64 cm 133 mm[Hg] 84 mm[Hg] Gwen Glass [facility] 14:10:05 Social History Question Answer Notes LastModified by Organizat ion Details LastModified Time Tobacco Smoking Status Never Smoker Violet Mac junie, [facility] 12/25/2022 15:25:08 Do You Have An Advance Directive? No [email or web address] Information n ot available 08/01/2021 What Is Your Level Of Alcohol Consumption? None [email or web address] Information not available 08/01/2021 Are You Blind Or Do You Have Difficulty Seeing? No Information n ot available 08/01/2021 What Is Your Level Of Caffeine Consumption? Moderate [email or web address] Information not available 08/01/2021 In The 14 Days Before Symptom Onset, Have You Had Close Contact With A Laboratory-confirm ed COVID-19 While That Case Was Ill? No [email or web address] Information n ot available 08/01/2021 In The 14 Days Before Symptom Onset, Have You Had Close Contact With A Person Who Is Under Investigation For COVID-19 While That Person Was Ill? No [email or web address] Information not available 08/01/2021 Have You Been To An Area Known To Be High Risk For COVID-19? No [email or web address] Information not available 08/01/2021 Are You Deaf Or Do You Have Serious Difficulty Hearing? No Information not available 08/01/2021 What Type Of Diet Are You Following? REGULAR [email or web address] Information n ot available 08/01/2021 What Is The Highest Grade Or Level Of School You Have Completed Or The Highest Degree You Have Received? 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 No [email or web address] Information not available 08/01/2021 Do You Use Protection During Sex? Always [email or web address] Information not available 08/01/2021 Do You Use Your Seat Belt Or Car Seat Routinely? Yes [email or web address] Information not available 08/01/2021 Do You Have Smoke And Carbon Monoxide Detectors In Your Home? Yes Information not available 08/01/2021 How Much Tobacco Do You Smoke? No [email or web address] Information not available 08/01/2021 Do You Feel Stressed (tense, Restless, Nervous, Or Anxious, Or Unable To Sleep At Night)? NG88126-6 [email or web address] Information not available 08/01/2021 Do You Use Any Illicit Or Recreational Drugs? No [email or web address] Information not available 08/01/2021 Do You Use Sunscreen Routinely? Yes [email or web address] Information not available 08/01/2021 Has Tobacco Cessation Counseling Been Provided? No [email or web address] Information not available 12/25/2022 Have You Used IV Drugs? No [email or web address] Information not available 08/01/2021 Do You Or Have You Ever Used Any Other Forms Of Tobacco Or Nicotine? No Information not available 12/25/2022 Sex: Unknown Functional Status Question Answer Note LastModified by Organizat ion Details LastModified Time Do you have difficulty walking or climbing stairs? No [email or web address] Information not available 12/25/2022 Are you able to walk? YESWOREST [email or web address] Information not available 08/01/2021 Are you able to care for yourself? Yes [email or web address] Information not available 12/25/2022 Do you have difficulty dressing or bathing? No [email or web address] Information not available 12/25/2022 What is your exercise level? Moderate [email or web address] Information not available 08/01/2021 Mental Status None recorded. Family History Relationship Description Onset Age of this Age Resolved Age Notes LastModified by Organization Details LastModified Time Maternal Grandmother Disorder of thyroid gland [email or web address] Not available 08/01 09:54:58 Mother Asthma [email or web address] Not available 08/01/2021 09:54:58 Mother Disorder of thyroid gland [email or web address] Not available 08/01 09:54:58 Paternal Grandmother Heart disease [email or web address] Not available 08/01 09:54:58 Medical History Condition [...] Diagnosis/Indication Diagnosis SNOMED-CT Code Diagnosis ICD10 Code [id number] Clari [facility] [address] [address] 05/12/2024 09:34:59 05/12/2024 10:09:12 Uterine size for dates discrepancy 699732330 O26.843 O09.813 Z3A.28 [id number] [facility] [address] [address] 05/12/2024 09:35:15 05/12/2024 10:37:46 Gestation period, 28 weeks 15235349 Z3A.28 [id number] [facility] [address] [address] 05/26/2024 13:59:11 05/26/2024 14:39:09 Routine care 600175740 Z34.92 [id number] Clari Vanessa [facility] [address] [address] 06/09/2024 13:18:21 06/09/2024 13:58:19 IVF - in-vitro fertilization 4628170279 2102 O09.819 O99.213 Z3A.32 [id number] [facility] [address] [address] 06/09/2024 13:18:51 06/09/2024 14:52:39 Gestation period, 32 weeks 5262904 Z3A.32 Health Concerns Section Related Observation LastModified by Organization Detai ls LastModified Time None Recorded Concern Status LastModified by Organization Details LastModified Time None Recorded Payers Encounter Date Sequence Insurance Name Policy Number Policy Leos Covered Member ID Leos Member ID Guarantor Name 06/09/2024 1 [employer] [id number] Gold Lacyerson [id number] Annabel Villatoro OBGyn Episode Ob Episode Information Episode Created Date Number of Fetuses Patient Bloodtype Patient rh Status Prepregnancy Weight lbs Domestic Partner Domestic Partner Phone Father Name Combination Technician Status 01/21/20 24 1 B Positive 237 Gold Bautista on CLOSED Fetus Data First Name Last Name Admitted to NICU Weight (g) Sex Living Outcome Pediatric Complications Fetus ID Race Codes Race Delivery Type Tommy 2778.25 1 M [id number] Primary Problems Problem Notes +GBS Problem Name Start Date End Date Resolution Snomed Code Not e Disorder of thyroid gland 82049216 followed by endocrine on unithroid daily Primary infertility 673149611 Artificial insemination [id number] 08 IUI by Sp Eugene Calculation EUGENE [...] Sound Latest Days Gestation 01/21/20 24 12 [email or web address] 01/21/2024 07/31/19 25 3 Pre-sean Flowsheet Flowsheet Date 01/21/2024 Castaneda Score Blood Edema Fundus Height Fundus Units Glucose Ketones Leukocytes Nitrite Labor Signs Protein Cervic Dilation Cervic Effacement Cervic Station none Type Weight in lbs Pre/Post Dialysis Refused Weight 236.949641261513 BP Diastolic BP Location Tested BP Systolic BP Type 84 131 Fetus Heart Rate Present Fetus Movement A No Comments Patient is having round liga ment pain. reviewed US, precautions and education, IUI done in the office, on pnv, sees an clay mixer regularly, labs with NIPS today, routine care Flowsheet Date 02/18/2024 Castaneda Score Blood Edema Fundus Height Fundus Units Glucose Ketones Leukocytes Nitrite Labor Signs Protein Cervic Dilation Cervic Effacement Cervic Station trace Type Weight in lbs Pre/Post Dialysis Refused Weight 240.700901287475 BP Diastolic BP Location Tested BP Systolic BP Type 78 133 Fetus Heart Rate Present A 154 Present Fetus Movement A Yes Comments Patient is having some pain and swelling. 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 and will look at classes, f/u 4 [...] Type Weight in lbs Pre/Post Dialysis Refused 242.473774163881 BP Diastolic BP Location Tested BP Systolic [...] Type Weight in lbs Pre/Post Dialysis Refused 250.562395684909 BP Diastolic BP Location Tested BP Systolic [...] Type Weight in lbs Pre/Post Dialysis Refused 253.488776244376 BP Diastolic BP Location Tested BP Systolic [...] Type Weight in lbs Pre/Post Dialysis Refused 253.156627715278 BP Diastolic BP Location Tested BP Systolic [...] Type Weight in lbs Pre/Post Dialysis Refused 260.949997822724 BP Diastolic BP Location Tested BP Systolic [...] Type Weight in lbs Pre/Post Dialysis Refused 267.540364134020 BP Diastolic BP Location Tested BP Systolic BP Type 85 148 Fetus Heart Rate Present Fetus Movement A Yes Comments jackie breech, discussed prec autions and education +FM, breech continue spinning babies, to ld for labs increased bp today no sxs f/u one week Flowsheet Date 07/02/2024 Castandea Score Blood Edema Fundus Height Fundus Units Glucose Ketones Leukocytes Nitrite Labor Signs Protein Cervic Dilation Cervic Effacement Cervic Station Type Weight in lbs Pre/Post Dialysis Refused Weight 267.703565314325 BP Diastolic BP Location Tested BP Systolic BP Type 111 164 98 168 Fetus Heart Rate Present Fetus Movement Comments Flowsheet Date 07/02/2024 Castaneda Score Blood Edema Fundus Height Fundus Units Glucose Ketones Leukocytes Nitrite Labor Signs Protein Cervic Dilation Cervic Effacement Cervic Station trace Type Weight in lbs Pre/Post Dialysis Refused 267.935595272232 BP Diastolic BP Location Tested BP Systolic [...] Type Weight in lbs Pre/Post Dialysis Refused 266.199514818755 BP Diastolic BP Location Tested BP Systolic [...] Weight in lbs Pre/Post Dialysis Refused Weight 241.788158223962 BP Diastolic BP Location Tested BP Systolic [...] At Estimated Date of Delivery false Thalassemia (Beninese, St Helenian, Mediterranean, Or Background): MCV < 80 false Neural Tube Defect (Meningom yelocele, Spina Bifida, Or Anencephaly) false Congenital Heart Defect false Down Syndrome false Kwadwo-Sachs (eg, Buddhism, Cajun, [place]an-[place]) f alse Dorita Disease false Sickle Cell [...]
--- OUTSIDE RECORDS SUMMARY | 2024-07-19 16:53 | XMS_ITS | Continuity of Care Document ---
Author Organization [facility] [place] Address [address] [place] [address] Care Team Providers Care Market Research Specialist Name Role Phone [facility] Primary Care Provider JERALD FRANKS Primary Care Provider Assessment Encounter Date Assessment Date Assessment LastModified by Organization Details LastModified Time 05/26/2024 05/26/2024 Patient is 30___weeks . Discussed plan. Not available 05/26/2024 14:35:25 Plan of Treatment Reminders Order Date Submit Date Provider Last Modified By Organization Details Last Modified Time Details Appointments SURG POST OP 024 04:30PM Robert BURNS MD Not available Not available Not available [...] cy No observ ation record ed. [email or web address] [place] [address], [place], [address], 01/21/2024 18:13:45 01/21/20 24 01/21/2024 US, obste tric, follo w-up No observ ation record ed. [email or web address] [address], [place], [address], 01/21/2024 18:02:27 03/17/20 24 03/17/2024 US, obste tric, 2nd or 3rd trime ster No observ ation record ed. [email or web address] [place] [address], [place], [address], 03/17/2024 18:00:40 03/17/20 24 03/17/2024 US, obste tric, 2nd or 3rd trime ster No observ ation record ed. [email or web address] [address], [place], [address], 03/17/2024 21:29:59 03/17/20 24 03/17/2024 US, obste tric, 2nd or 3rd trime ster No observ ation record ed. [email or web address] [address], [place], [address], 03/17/2024 21:29:58 05/12/20 24 05/12/2024 US, obste tric, follo w-up No observ [facility]ion [facility] [address], [place], [address], 05/12/2024 12:28:02 05/12/20 24 05/12/2024 US, obste tric, follo w-up No observ ation record ed. [email or web address] [address], [place], [address], 2024 14:27:07 06/09/20 24 06/09/2024 US, obste tric, follo w-up No observ ation record ed. [email or web address] [place] [address], [place], [address], 06/09/2024 18:21:25 06/09/20 24 06/09/2024 US, obste tric, follo w-up No observ ation record ed. [email or web address] [address], [place], [address], 06/09/2024 23:15:46 06/30/20 24 06/30/2024 US, obste tric, bioph ysica l profi le + non-s tress test No observ ation record ed. [facility] [address], [place], [address], 06/30/2024 14:24:56 06/30/20 24 06/30/2024 US, obste tric, follo w-up No observ ation record ed. [email or web address] [address], [place], [address], 07/01/2024 18:39:43 07/02/20 24 07/02/2024 non-s tress test No observ ation record ed. [email or web address] [place] [address], [place], [address], 07/02/2024 19:37:01 07/02/20 non-s tress test No observ ation record ed. [email or web address] [place] [address], [place], [address], 07/02/2024 19:38:57 07/06/20 24 07/06/2024 non-s tress test No observ ation record ed. [address], [place], [address], 07/06/2024 15:30:22 07/07/20 24 07/07/2024 US, obste tric, bioph ysica l profi le + non-s tress test No observ ation record ed. [facility] [address], [place], [address], 07/07/2024 13:11:20 07/07/20 24 07/07/2024 US, obste tric, follo w-up No observ ation record ed. [email or web address] [place] [address], [place], [address], 07/07/2024 13:11:30 07/07/20 24 07/07/2024 US, obste tric, follo w-up No observ ation record ed. [email or web address] [address] [address], [place], [address], 07/08/2024 09:12:23 07/07/20 24 07/07/2024 non-s tress test No observ ation record ed. [email or web address] [place] [address], [place], [address], 07/07/2024 14:50:51 Result Notes None recorded. Problems Name Problem SNOMED Code Status Onset Date Resolution Date Notes Provider Name and Address Organization Details Recorded Time Pregnanc y 68823580 Completed 202307/19/2024 [facility] Cab[facility], [facility] 4 17:45:12 Primary infertil ity 476935140 Completed [address], [place], [address], [facility] 4 14:44:04 Artifici al insemina tion Completed IUI by Sp [address], [place], [address], [facility] 4 14:44:04 Disorder of thyroid gland 15799018 Completed followed by endocrin e on unithroi d daily [address], [place], [address], [facility] 4 14:44:04 Problem Notes None recorded. Procedures Surgical History Date Name Laterality Status Provider Name and Address Organization Details Recorded Time 07/12/20 24 SECTION (SURG) completed [facility] 07/14/2024 20:00:50 12/24/19 24 Date of Last Pap Smear completed [facility] 12/24/2023 14:16:42 11/11/19 24 intrauterine artificial insemination completed [facility] 11/11/2023 10:01:37 Imaging Results None recorded. [...] (supplie d by patient from pharmacy lot [id number] Exp 06/15/20 24 Not Available Not Available [...] Available Not Available Vitals Date Recorded Body height Body mass index (BMI) Body weight Systolic blood pressure Diastolic blood pressure Provider Name and Address Organization Details Last Updated DateTime 05/26/2024 167.64 cm 40.8 kg/m2 666387.8 6961 g 129 mm[Hg] 78 mm[Hg] Gwen Glass [facility] 14:11:53 Social History Question Answer Notes LastModified by Organizat ion Details LastModified Time Tobacco Smoking Status Never Smoker Violet Mac junie, [facility] 12/25/2022 15:25:08 Do You Have An Advance Directive? No [email or web address] Information n ot available 08/01/2021 What Is Your Level Of Alcohol Consumption? None [email or web address] Information not available 08/01/2021 Are You Blind Or Do You Have Difficulty Seeing? No [email or web address] Information n ot available 08/01/2021 What Is Your Level Of Caffeine Consumption? Moderate [email or web address] Information not available 08/01/2021 In The 14 Days Before Symptom Onset, Have You Had Close Contact With A Laboratory-confirm ed COVID-19 While That Case Was Ill? No Information n ot available 08/01/2021 In The 14 Days Before Symptom Onset, Have You Had Close Contact With A Person Who Is Under Investigation For COVID-19 While That Person Was Ill? No [email or web address] Information not available 08/01/2021 Have You Been To An Area Known To Be High Risk For COVID-19? No [email or web address] Information not available 08/01/2021 Are You Deaf Or Do You Have Serious Difficulty Hearing? No [email or web address] Information not available 08/01/2021 What Type Of Diet Are You Following? REGULAR [email or web address] Information n ot available 08/01/2021 What Is The Highest Grade Or Level Of School You Have Completed Or The Highest Degree You Have Received? 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 No [email or web address] Information not available 08/01/2021 Do You Use Protection During Sex? Always Information not available 08/01/2021 Do You Use Your Seat Belt Or Car Seat Routinely? Yes [email or web address] Information not available 08/01/2021 Do You Have Smoke And Carbon Monoxide Detectors In Your Home? Yes [email or web address] Information not available 08/01/2021 How Much Tobacco Do You Smoke? No [email or web address] Information not available 08/01/2021 Do You Feel Stressed (tense, Restless, Nervous, Or Anxious, Or Unable To Sleep At Night)? [id number] [email or web address] Information not available 08/01/2021 Do You Use Any Illicit Or Recreational Drugs? No [email or web address] Information not available 08/01/2021 Do You Use Sunscreen Routinely? Yes [email or web address] Information not available 08/01/2021 Has Tobacco Cessation Counseling Been Provided? No [email or web address] Information not available 12/25/2022 Have You Used IV Drugs? No Information not available 08/01/2021 Do You Or Have You Ever Used Any Other Forms Of Tobacco Or Nicotine? No [email or web address] Information not available 12/25/2022 Sex: Unknown Functional Status Question Answer Note LastModified by Organizat ion Details LastModified Time Do you have difficulty walking or climbing stairs? No [email or web address] Information not available 12/25/2022 Are you able to walk? YESWOREST [email or web address] Information not available 08/01/2021 Are you able to care for yourself? Yes [email or web address] Information not available 12/25/2022 Do you have difficulty dressing or bathing? No [email or web address] Information not available 12/25/2022 What is your exercise level? Moderate [email or web address] Information not available 08/01/2021 Mental Status None recorded. Family History Relationship Description Onset Age of this Age Resolved Age Notes LastModified by Organization Details LastModified Time Maternal Grandmother Disorder of thyroid gland [email or web address] Not available 08/01 09:54:58 Mother Asthma [email or web address] Not available 08/01/2021 09:54:58 Mother Disorder of thyroid gland [email or web address] Not available 08/01 09:54:58 Paternal Grandmother Heart disease [email or web address] Not available 08/01 09:54:58 Medical History Condition Response Allergies (Food, seasonal, environmental ) Y Other Y Blood Transfusion N Breast Cancer N Drug/Latex Allergies/Reactions N Dermatologic Disorders N Lung Disease N [...] Diagnosis/Indication Diagnosis SNOMED-CT Code Diagnosis ICD10 Code [id number] Clari [facility] [address],[facility] [place] [address] 05/12/2024 09:34:59 05/12/2024 10:09:12 Uterine size for dates discrepancy 028806751 O26.843 O09.813 Z3A.28 [id number] [facility] [address],[facility] [place] [address] 05/12/2024 09:35:15 05/12/2024 10:37:46 Gestation period, 28 weeks 11982550 Z3A.28 [id number] [facility] [address] [address] 05/26/2024 13:59:11 05/26/2024 14:39:09 Routine care 299135472 Z34.92 Health Concerns Section Related Observation LastModified by Organization Detai ls LastModified Time None Recorded Concern Status LastModified by Organization Details LastModified Time None Recorded Payers Encounter Date Sequence Insurance Name Policy Number Policy Leos Covered Member ID Leos Member ID Guarantor Name 05/26/2024 1 [email or web address] [id number] Gold Villatoro [id number] Annabel Venancio Shauna OBGyn Episode Ob Episode Information Episode Created Date Number of Fetuses Patient Bloodtype Patient rh Status Prepregnancy Weight lbs Domestic Partner Domestic Partner Phone Father Name Laser/Electro Optics Technician Status 01/21/20 24 1 B Positive 237 Gold Bautista on CLOSED Fetus Data First Name Last Name Admitted to NICU Weight (g) Sex Living Outcome Pediatric Complications Fetus ID Race Codes Race Delivery Type Tommy 2778.25 1 M [id number] Primary Problems Problem Notes +GBS Problem Name Start Date End Date Resolution Snomed Code Not e Disorder of thyroid gland 38031260 followed by endocrine on unithroid daily Primary infertility 360584082 Artificial insemination [id number] 08 IUI by Sp Eugene Calculation EUGENE [...] Sound Latest Days Gestation 01/21/20 24 12 [email or web address] 01/21/2024 07/31/19 25 3 Pre-sean Flowsheet Flowsheet Date 01/21/2024 Castaneda Score Blood Edema Fundus Height Fundus Units Glucose Ketones Leukocytes Nitrite Labor Signs Protein Cervic Dilation Cervic Effacement Cervic Station none Type Weight in lbs Pre/Post Dialysis Refused Weight 236.503322343959 BP Diastolic BP Location Tested BP Systolic BP Type 84 131 Fetus Heart Rate Present Fetus Movement A No Comments Patient is having round liga ment pain. reviewed US, precautions and education, IUI done in the office, on pnv, sees an rehabilitation specialist regularly, labs with NIPS today, routine care Flowsheet Date 02/18/2024 Castaneda Score Blood Edema Fundus Height Fundus Units Glucose Ketones Leukocytes Nitrite Labor Signs Protein Cervic Dilation Cervic Effacement Cervic Station trace Type Weight in lbs Pre/Post Dialysis Refused Weight 240.369252367631 BP Diastolic BP Location Tested BP Systolic BP Type 78 133 Fetus Heart Rate Present A 154 Present Fetus Movement A Yes Comments Patient is having some pain and swelling. 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 as student admissions clerk and will look at classes, f/u 4 [...] Type Weight in lbs Pre/Post Dialysis Refused 242.791641122780 BP Diastolic BP Location Tested BP Systolic [...] Type Weight in lbs Pre/Post Dialysis Refused 250.365764554418 BP Diastolic BP Location Tested BP Systolic [...] Type Weight in lbs Pre/Post Dialysis Refused 253.930362097570 BP Diastolic BP Location Tested BP Systolic [...] Type Weight in lbs Pre/Post Dialysis Refused 253.973247751300 BP Diastolic BP Location Tested BP Systolic [...] Type Weight in lbs Pre/Post Dialysis Refused 260.214648985971 BP Diastolic BP Location Tested BP Systolic [...] Type Weight in lbs Pre/Post Dialysis Refused 267.898011149255 BP Diastolic BP Location Tested BP Systolic [...] Weight in lbs Pre/Post Dialysis Refused Weight 267.444312259068 BP Diastolic BP Location Tested BP Systolic BP Type 111 164 98 168 Fetus Heart Rate Present Fetus Movement Comments Flowsheet Date 07/02/2024 Castaneda Score Blood Edema Fundus Height Fundus Units Glucose Ketones Leukocytes Nitrite Labor Signs Protein Cervic Dilation Cervic Effacement Cervic Station trace Type Weight in lbs Pre/Post Dialysis Refused 267.217695060968 BP Diastolic BP Location Tested BP Systolic [...] Type Weight in lbs Pre/Post Dialysis Refused 266.917576108392 BP Diastolic BP Location Tested BP Systolic [...] Weight in lbs Pre/Post Dialysis Refused Weight 241.935354589142 BP Diastolic BP Location Tested BP Systolic [...] At Estimated Date of Delivery false Thalassemia (Malay, Malay, Mediterranean, Or Background): MCV < 80 false Neural Tube Defect (Meningom yelocele, Spina Bifida, Or Anencephaly) false Congenital Heart Defect false Down Syndrome false Kwadwo-Sachs (eg, Zoroastrianism, Cajun, Vincentian-Ulster) f alse Dorita Disease false Sickle Cell Disease Or Trait () false Hemophilia Or Other Blood Disorders false Muscular Dystrophy false Cystic Fibrosis false Hundred's Chorea false Intellectual Disability/Autism false If Yes, [...] Sterilization Discharge Date Comments 4 37.2 Byron Burns MD Discharge Information Feeding Method Contraceptive Method Maternal HG B and HCT Levels
--- OUTSIDE RECORDS SUMMARY | 2024-07-19 16:53 | XMS_ITS | Continuity of Care Document ---
Author Organization [facility] [place] Address [address] [place] [address] Care Team Providers Care Molded Frames Assembler Name Role Phone [facility] Primary Care Provider JERALD FRANKS Primary Care Provider Assessment Encounter Date Assessment Date Assessment LastModified by Organization Details LastModified Time 05/12/2024 05/12/2024 Patient is _28__weeks . Discussed plan. Not available 05/12/2024 10:37:18 Plan of Treatment Reminders Order Date Submit [...] cy No observ ation record ed. [email or web address] [place] [address], [place], [address], 01/21/2024 18:13:45 01/21/20 24 01/21/2024 US, obste tric, follo w-up No observ ation record ed. [email or web address] [address], [place], [address], 01/21/2024 18:02:27 03/17/20 24 03/17/2024 US, obste tric, 2nd or 3rd trime ster No observ ation record ed. [email or web address] [place] [address], [place], [address], 03/17/2024 18:00:40 03/17/20 24 03/17/2024 US, obste tric, 2nd or 3rd trime ster No observ ation record ed. [email or web address] [address], [place], [address], 03/17/2024 21:29:59 03/17/20 24 03/17/2024 US, obste tric, 2nd or 3rd trime ster No observ ation record ed. [email or web address] [address], [place], [address], 03/17/2024 21:29:58 05/12/20 24 05/12/2024 US, obste tric, follo w-up [facility] observ [email or web address] [address], [place], [address], 05/12/2024 12:28:02 05/12/20 24 05/12/2024 US, obste tric, follo w-up No observ ation record ed. [email or web address] [address], [place], [address], 2024 14:27:07 06/09/20 24 06/09/2024 US, obste tric, follo w-up No observ ation record ed. [email or web address] [place] [address], [place], [address], 06/09/2024 18:21:25 06/09/20 24 06/09/2024 US, obste tric, follo w-up No observ ation record ed. [email or web address] [address], [place], [address], 06/09/2024 23:15:46 06/30/20 24 06/30/2024 US, obste tric, bioph ysica l profi le + non-s tress test No observ ation record ed. [facility] [address], [place], [address], 06/30/2024 14:24:56 06/30/20 24 06/30/2024 US, obste tric, follo w-up No observ ation record ed. [email or web address] [address], [place], [address], 07/01/2024 18:39:43 07/02/20 24 07/02/2024 non-s tress test No observ ation record ed. [email or web address] [place] [address], [place], [address], 07/02/2024 19:37:01 07/02/20 non-s tress test No observ ation record ed. [email or web address] [place] [address], [place], [address], 07/02/2024 19:38:57 07/06/20 24 07/06/2024 non-s tress test No observ ation record ed. [address], [place], [address], 07/06/2024 15:30:22 07/07/20 24 07/07/2024 US, obste tric, bioph ysica l profi le + non-s tress test No observ ation record ed. [facility] [address], [place], [address], 07/07/2024 13:11:20 07/07/20 24 07/07/2024 US, obste tric, follo w-up No observ ation record ed. [email or web address] [place] [address], [place], [address], 07/07/2024 13:11:30 07/07/20 24 07/07/2024 US, obste tric, follo w-up No observ ation record ed. [email or web address] [address], [place], [address], 07/08/2024 09:12:23 07/07/20 24 07/07/2024 non-s tress test No observ ation record ed. [email or web address] [place] [address], [place], [address], 07/07/2024 14:50:51 Result Notes None recorded. Problems Name Problem SNOMED Code Status Onset Date Resolution Date Notes Provider Name and Address Organization Details Recorded Time Pregnanc y 70901651 Completed 202307/19/2024 Whit Cabrera [facility], [facility] 4 17:45:12 Primary infertil ity 819382902 Completed [address], [place], [address], [facility] 4 14:44:04 Artifici al insemina tion Completed IUI by Sp [address], [place], [address], [facility] 4 14:44:04 Disorder of thyroid gland 38422573 Completed followed by endocrin e on unithroi d daily [address], [place], [address], [facility] 4 14:44:04 Problem Notes None recorded. Procedures Surgical History Date Name Laterality Status Provider Name and Address Organization Details Recorded Time 07/12/20 24 SECTION (SURG) completed [facility] 07/14/2024 20:00:50 12/24/19 24 Date of Last Pap Smear completed [facility] 12/24/2023 14:16:42 11/11/19 24 intrauterine artificial insemination completed [facility] 11/11/2023 10:01:37 Imaging Results [...] (supplie d by patient from pharmacy lot [id number] Exp 06/15/20 24 Not Available Not Available [...] and Address Organization Details Last Updated DateTime 05/12/2024 337444.8 6961 g 40.8 kg/m2 167.64 cm 131 mm[Hg] 74 mm[Hg] Gwen Glass [facility] 10:20:23 Social History Question Answer Notes LastModified by Organizat ion Details LastModified Time Tobacco Smoking Status Never Smoker Violet Mac junie, [facility] 12/25/2022 15:25:08 Do You Have An Advance Directive? No [email or web address] Information n ot available 08/01/2021 What Is Your Level Of Alcohol Consumption? None [email or web address] Information not available 08/01/2021 Are You Blind Or Do You Have Difficulty Seeing? No [email or web address] Information n ot available 08/01/2021 What Is Your Level Of Caffeine Consumption? Moderate [email or web address] Information not available 08/01/2021 In The 14 Days Before Symptom Onset, Have You Had Close Contact With A Laboratory-confirm ed COVID-19 While That Case Was Ill? No [email or web address] Information n ot available 08/01/2021 In The 14 Days Before Symptom Onset, Have You Had Close Contact With A Person Who Is Under Investigation For COVID-19 While That Person Was Ill? No [email or web address] Information not available 08/01/2021 Have You Been To An Area Known To Be High Risk For COVID-19? No Information not available 08/01/2021 Are You Deaf Or Do You Have Serious Difficulty Hearing? No [email or web address] Information not available 08/01/2021 What Type Of Diet Are You Following? REGULAR [email or web address] Information n ot available 08/01/2021 What Is The Highest Grade Or Level Of School You Have Completed Or The Highest Degree You Have Received? 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 No [email or web address] Information not available 08/01/2021 Do You Use Protection During Sex? Always [email or web address] Information not available 08/01/2021 Do You Use Your Seat Belt Or Car Seat Routinely? Yes [email or web address] Information not available 08/01/2021 Do You Have Smoke And Carbon Monoxide Detectors In Your Home? Yes [email or web address] Information not available 08/01/2021 How Much Tobacco Do You Smoke? No [email or web address] Information not available 08/01/2021 Do You Feel Stressed (tense, Restless, Nervous, Or Anxious, Or Unable To Sleep At Night)? HI98036-7 [email or web address] Information not available 08/01/2021 Do You Use Any Illicit Or Recreational Drugs? No [email or web address] Information not available 08/01/2021 Do You Use Sunscreen Routinely? Yes [email or web address] Information not available 08/01/2021 Has Tobacco Cessation Counseling Been Provided? No Information not available 12/25/2022 Have You Used IV Drugs? No [email or web address] Information not available 08/01/2021 Do You Or Have You Ever Used Any Other Forms Of Tobacco Or Nicotine? No [email or web address] Information not available 12/25/2022 Sex: Unknown Functional Status Question Answer Note LastModified by Organizat ion Details LastModified Time Do you have difficulty walking or climbing stairs? No [email or web address] Information not available 12/25/2022 Are you able to walk? YESWOREST [email or web address] Information not available 08/01/2021 Are you able to care for yourself? Yes [email or web address] Information not available 12/25/2022 Do you have difficulty dressing or bathing? No [email or web address] Information not available 12/25/2022 What is your exercise level? Moderate [email or web address] Information not available 08/01/2021 Mental Status None recorded. Family History Relationship Description Onset Age of this Age Resolved Age Notes LastModified by Organization Details LastModified Time Maternal Grandmother Disorder of thyroid gland [email or web address] Not available 08/01 09:54:58 Mother Asthma [email or web address] Not available 08/01/2021 09:54:58 Mother Disorder of thyroid gland [email or web address] Not available 08/01 09:54:58 Paternal Grandmother Heart disease [email or web address] Not available 08/01 09:54:58 Medical History Condition [...] Diagnosis/Indication Diagnosis SNOMED-CT Code Diagnosis ICD10 Code [id number] Marilyn Willams CNM [place] [address] [address] 04/14/2024 12:21:48 04/14/2024 13:42:54 Routine care [id number] Z34.92 [id number] Clari Vanessa [place] [address] [address] 05/12/2024 09:34:59 05/12/2024 10:09:12 Uterine size for dates discrepancy 414945030 O26.843 O09.813 Z3A.28 [id number] [facility] [address] [address] 05/12/2024 09:35:15 05/12/2024 10:37:46 Gestation period, 28 weeks 45419175 Z3A.28 Health Concerns Section Related Observation LastModified by Organization Detai ls LastModified Time None Recorded Concern Status LastModified by Organization Details LastModified Time None Recorded Payers Encounter Date Sequence Insurance Name Policy Number Policy Leos Covered Member ID Leos Member ID Guarantor Name 05/12/2024 1 [employer] [id number] Gold Villatoro [id number] Annabel Venancio Villatoro OBGyn Episode Ob Episode Information Episode Created Date Number of Fetuses Patient Bloodtype Patient rh Status Prepregnancy Weight lbs Domestic Partner Domestic Partner Phone Father Name Float Phlebotomist Status 01/21/20 24 1 B Positive 237 Gold Bautista on CLOSED Fetus Data First Name Last Name Admitted to NICU Weight (g) Sex Living Outcome Pediatric Complications Fetus ID Race Codes Race Delivery Type Tommy 2778.25 1 M [id number] Primary Problems Problem Notes +GBS Problem Name Start Date End Date Resolution Snomed Code Not e Disorder of thyroid gland 25740704 followed by endocrine on unithroid daily Primary infertility 660640258 Artificial insemination [id number] IUI by Sp Eugene Calculation EUGENE [...] Sound Latest Days Gestation 01/21/20 24 12 [email or web address] 01/21/2024 07/31/19 25 3 Pre-sean Flowsheet Flowsheet Date 01/21/2024 Castaneda Score Blood Edema Fundus Height Fundus Units Glucose Ketones Leukocytes Nitrite Labor Signs Protein Cervic Dilation Cervic Effacement Cervic Station none Type Weight in lbs Pre/Post Dialysis Refused Weight 236.532982192592 BP Diastolic BP Location Tested BP Systolic BP Type 84 131 Fetus Heart Rate Present Fetus Movement A No Comments Patient is having round liga ment pain. 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 and will look at classes, f/u 4 [...] Type Weight in lbs Pre/Post Dialysis Refused 242.502915717230 BP Diastolic BP Location Tested BP Systolic [...] Type Weight in lbs Pre/Post Dialysis Refused 250.052084958964 BP Diastolic BP Location Tested BP Systolic [...] Type Weight in lbs Pre/Post Dialysis Refused 253.750915373849 BP Diastolic BP Location Tested BP Systolic [...] Type Weight in lbs Pre/Post Dialysis Refused 253.705524124475 BP Diastolic BP Location Tested BP Systolic [...] Type Weight in lbs Pre/Post Dialysis Refused 260.670063201232 BP Diastolic BP Location Tested BP Systolic [...] Type Weight in lbs Pre/Post Dialysis Refused 267.946762764171 BP Diastolic BP Location Tested BP Systolic [...] Weight in lbs Pre/Post Dialysis Refused Weight 267.746279201638 BP Diastolic BP Location Tested BP Systolic BP Type 111 164 98 168 Fetus Heart Rate Present Fetus Movement Comments Flowsheet Date 07/02/2024 Catsaneda Score Blood Edema Fundus Height Fundus Units Glucose Ketones Leukocytes Nitrite Labor Signs Protein Cervic Dilation Cervic Effacement Cervic Station trace Type Weight in lbs Pre/Post Dialysis Refused 267.017284100823 BP Diastolic BP Location Tested BP Systolic [...] Type Weight in lbs Pre/Post Dialysis Refused 266.665702449171 BP Diastolic BP Location Tested BP Systolic [...] Weight in lbs Pre/Post Dialysis Refused Weight 241.450079838660 BP Diastolic BP Location Tested BP Systolic [...] At Estimated Date of Delivery false Thalassemia (Romanian, Yi, Mediterranean, Or Background): MCV < 80 false Neural Tube Defect (Meningom yelocele, Spina Bifida, Or Anencephaly) false Congenital Heart Defect false Down Syndrome false Kwadwo-Sachs (eg, Restorationism, Cajun, Venezuelan-Bonner) f alse Dorita Disease false Sickle Cell Disease Or Trait () false Hemophilia Or Other Blood Disorders false Muscular Dystrophy false Cystic Fibrosis false Anderson's Chorea false Intellectual Disability/Autism false If Yes, [...]
--- OUTSIDE RECORDS SUMMARY | 2024-07-19 16:53 | XMS_ITS | Continuity of Care Document ---
Author Organization [facility] [place] Address [address] [place] [address] [place] [address] Care Team Providers Care Biztalk Software Developer Name Role Phone [facility] Primary Care Provider JERALD FRANKS Primary Care Provider [phone] Assessment No assessment recorded. Plan of Treatment Reminders Order Date Submit Date Provider Last Modified By Organization Details Last Modified Time Details Appointments SURG POST OP 2023 04:30P Venancio YOO MD Not available Not available Not available Lab None recorded. Referral None recorded. Procedures None recorded. Surgeries None recorded. Imaging US, obstetric , biophysic al profile + non-stres s test 2023 024 [email or web address] [place], [facility] [address], [place], [address], 06/30/2024 14:14:53 Medication Orders None recorded. Patient TargetsNo targets recorded. Patient InstructionsNo instructions recorded. Reason for Referral None Reported. Results Created Date Observation Date Name Description Value Unit Range Abnormal Flag Note LastModifiedBy Organization Detail LastModifiedTime 01/21/20 24 01/21/2024 US, obste tric, nucha l trans lucen cy No observ ation record ed. [email or web address] [place] [address], [place], [address], 01/21/2024 18:13:45 01/21/20 24 01/21/2024 US, obste tric, follo w-up No observ ation record ed. [email or web address] [address], [place], [address], 01/21/2024 18:02:27 03/17/20 24 03/17/2024 US, obste tric, 2nd or 3rd trime ster No observ ation record ed. [email or web address] [place] [address], [place], [address], 03/17/2024 18:00:40 03/17/2003/17/2024 US, obste tric, 2nd or 3rd trime ster No observ ation record ed. [email or web address] [address], [place], [address], 03/17/2024 21:29:59 03/17/20 24 03/17/2024 US, obste tric, 2nd or 3rd trime ster No observ ation record ed. [email or web address] [address], [place], [address], 03/17/2024 21:29:58 05/12/20 24 05/12/2024 US, obste tric, follo w-up No observ ation record ed. [email or web address] [address], [place], [address], 05/12/2024 12:28:02 05/12/20 24 05/12/2024 US, obste tric, follo w-up No observ ation record ed. [address], [place], [address], 2024 14:27:07 06/09/20 24 06/09/2024 US, obste tric, follo w-up No observ ation record ed. [email or web address] [place] [address], [place], [address], 06/09/2024 18:21:25 06/09/20 24 06/09/2024 US, obste tric, follo w-up No observ ation record ed. [email or web address] [address], [place], [address], 06/09/2024 23:15:46 06/30/20 24 06/30/2024 US, obste tric, bioph ysica l profi le + non-s tress test No observ ation record ed. [facility] [address], [place], [address], 06/30/2024 14:24:56 06/30/20 24 06/30/2024 US, obste tric, follo w-up No observ ation record ed. [email or web address] [address], [place], [address], 07/01/2024 18:39:43 07/02/20 24 07/02/2024 non-s tress test No observ ation record ed. [email or web address] [place] [address], [place], [address], 07/02/2024 19:37:01 07/02/20 non-s tress test No observ ation record ed. [email or web address] [place] [address], [place], [address], 07/02/2024 19:38:57 07/06/20 24 07/06/2024 non-s tress test No observ ation record ed. [address], [place], [address], 07/06/2024 15:30:22 07/07/20 24 07/07/2024 US, obste tric, bioph ysica l profi le + non-s tress test No observ ation record ed. [facility] [address], [place], [address], 07/07/2024 13:11:20 07/07/20 24 07/07/2024 US, obste tric, follo w-up No observ ation record ed. [email or web address] [place] [address], [place], [address], 07/07/2024 13:11:30 07/07/20 24 07/07/2024 US, obste tric, follo w-up No observ ation record ed. [email or web address] [address], [place], [address], 07/08/2024 09:12:23 07/07/20 24 07/07/2024 non-s tress test No observ ation record ed. [email or web address] [place] [address], [place], [address], 07/07/2024 14:50:51 Result Notes None recorded. Problems Name Problem SNOMED Code Status Onset Date Resolution Date Notes Provider Name and Address Organization Details Recorded Time Pregnanc y 92221405 Completed 202307/19/2024 Whit zaman, [facility] 4 17:45:12 Primary infertil ity 399465603 Completed [address], [place], [address], [facility] 4 14:44:04 Artifici al insemina tion Completed IUI by Sp [address], [place], [address], [facility] 4 14:44:04 Disorder of thyroid gland 75824196 Completed followed by endocrin e on unithroi d daily [address], [place], [address], [facility] 4 14:44:04 Problem Notes None recorded. Procedures Surgical History Date Name Laterality Status Provider Name and Address Organization Details Recorded Time 07/12/20 24 SECTION (SURG) completed [facility] 07/14/2024 20:00:50 12/24/19 Date of Last Pap Smear completed Gwen [facility] 12/24/2023 14:16:42 11/11/19 24 intrauterine artificial insemination completed [facility] 11/11/2023 10:01:37 Imaging Results Imaging Date Name Status LastModified by Organiz ation Details LastModified Time 06/30/2024 US, obstetric, biophysical profile + non-stress test completed [facility] [address], [place], [address], 06/30/2024 14:24:56 06/30/2024 US, obstetric, follow-up completed [email or web address] [address], [place], [address], 07/01/2024 18:39:43 Procedure Notes None recorded. Medical Equipment None [...] (supplie d by patient from pharmacy lot [id number] Exp 06/15/20 Not Available Not Available Not [...] Address Organization Details Last Updated DateTime 06/30/2024 495463.162 79 g 148 mm[Hg] 85 mm[Hg] Gwen Glass [facility] 06/30/2024 12:30:49 Social History Question Answer Notes LastModified by Organizat ion Details LastModified Time Tobacco Smoking Status Never Smoker Violet Mac junie, [facility] 12/25/2022 15:25:08 Do You Have An Advance Directive? No Information n ot available 08/01/2021 What Is Your Level Of Alcohol Consumption? None [email or web address] Information not available 08/01/2021 Are You Blind Or Do You Have Difficulty Seeing? No [email or web address] Information n ot available 08/01/2021 What Is Your Level Of Caffeine Consumption? Moderate [email or web address] Information not available 08/01/2021 In The 14 Days Before Symptom Onset, Have You Had Close Contact With A Laboratory-confirm ed COVID-19 While That Case Was Ill? No [email or web address] Information n ot available 08/01/2021 In The 14 Days Before Symptom Onset, Have You Had Close Contact With A Person Who Is Under Investigation For COVID-19 While That Person Was Ill? No Information not available 08/01/2021 Have You Been To An Area Known To Be High Risk For COVID-19? No [email or web address] Information not available 08/01/2021 Are You Deaf Or Do You Have Serious Difficulty Hearing? No [email or web address] Information not available 08/01/2021 What Type Of Diet Are You Following? REGULAR [email or web address] Information n ot available 08/01/2021 What Is The Highest Grade Or Level Of School You Have Completed Or The Highest Degree You Have Received? 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 No [email or web address] Information not available 08/01/2021 Do You Use Protection During Sex? Always [email or web address] Information not available 08/01/2021 Do You Use Your Seat Belt Or Car Seat Routinely? Yes [email or web address] Information not available 08/01/2021 Do You Have Smoke And Carbon Monoxide Detectors In Your Home? Yes [email or web address] Information not available 08/01/2021 How Much Tobacco Do You Smoke? No [email or web address] Information not available 08/01/2021 Do You Feel Stressed (tense, Restless, Nervous, Or Anxious, Or Unable To Sleep At Night)? [id number] [email or web address] Information not available 08/01/2021 Do You Use Any Illicit Or Recreational Drugs? No [email or web address] Information not available 08/01/2021 Do You Use Sunscreen Routinely? Yes [email or web address] Information not available 08/01/2021 Has Tobacco Cessation Counseling Been Provided? No [email or web address] Information not available 12/25/2022 Have You Used IV Drugs? No [email or web address] Information not available 08/01/2021 Do You Or Have You Ever Used Any Other Forms Of Tobacco Or Nicotine? No [email or web address] Information not available 12/25/2022 Sex: Unknown Functional Status Question Answer Note LastModified by Organizat ion Details LastModified Time Do you have difficulty walking or climbing stairs? No [email or web address] Information not available 12/25/2022 Are you able to walk? YESWOREST [email or web address] Information not available 08/01/2021 Are you able to care for yourself? Yes [email or web address] Information not available 12/25/2022 Do you have difficulty dressing or bathing? No [email or web address] Information not available 12/25/2022 What is your exercise level? Moderate [email or web address] Information not available 08/01/2021 Mental Status None recorded. Family History Relationship Description Onset Age of this Age Resolved Age Notes LastModified by Organization Details LastModified Time Maternal Grandmother Disorder of thyroid gland [email or web address] Not available 08/01 09:54:58 Mother Asthma [email or web address] Not available 08/01/2021 09:54:58 Mother Disorder of thyroid gland [email or web address] Not available 08/01 09:54:58 Paternal Grandmother Heart disease [email or web address] Not available 08/01 09:54:58 Medical History Condition Response Allergies (Food, seasonal, environmental ) Y Other Y Blood Transfusion N Drug/Latex Allergies/Reactions N Breast Cancer N Dermatologic Disorders N [...] Diagnosis/Indication Diagnosis SNOMED-CT Code Diagnosis ICD10 Code [id number] Clari [facility] [address] [address] 06/09/2024 13:18:21 06/09/2024 13:58:19 IVF - in-vitro fertilization 2643630342 2102 O09.819 O99.213 Z3A.32 [id number] [facility] [address],[facility] [place] [address] 06/09/2024 13:18:51 06/09/2024 14:52:39 Gestation period, 32 weeks 5929014 Z3A.32 [id number] Trish Persaud [place] [address],[facility] [place] [address] 06/30/2024 11:34:33 06/30/2024 12:14:08 Maternal obesity complicating , childbirth and the puerperium, antepartum 7085664288 07 O99.213 Z3A.35 [id number] Marilyn Willams [facility] [address],[place] [address] 06/30/2024 11:35:18 06/30/2024 16:28:29 Gestation period, 35 weeks 01801426 Z3A.35 Health Concerns Section Related Observation LastModified by Organization Detai ls LastModified Time None Recorded Concern Status LastModified by Organization Details LastModified Time None Recorded Payers Encounter Date Sequence Insurance Name Policy Number Policy Leso Covered Member ID Leos Member ID Guarantor Name 06/30/2024 1 [facility] [employer] [id number] Gold Villatoro [id number] Annabel Villatoro OBGyn Episode Ob Episode Information Episode Created Date Number of Fetuses Patient Bloodtype Patient rh Status Prepregnancy Weight lbs Domestic Partner Domestic Partner Phone Father Name Fifth Hand Status 01/21/20 24 1 B Positive 237 Gold Bautista on CLOSED Fetus Data First Name Last Name Admitted to NICU Weight (g) Sex Living Outcome Pediatric Complications Fetus ID Race Codes Race Delivery Type Tommy 2778.25 1 M [id number] Primary Problems Problem Notes +GBS Problem Name Start Date End Date Resolution Snomed Code Not e Disorder of thyroid gland 89097693 followed by endocrine on unithroid daily Primary infertility 451165182 Artificial insemination 290400 08 IUI by Sp Eugene Calculation EUGENE [...] Sound Latest Days Gestation 01/21/20 24 12 [email or web address] 01/21/2024 07/31/19 25 3 Pre- Flowsheet Flowsheet Date 01/21/2024 Castaneda Score Blood Edema Fundus Height Fundus Units Glucose Ketones Leukocytes Nitrite Labor Signs Protein Cervic Dilation Cervic Effacement Cervic Station none Type Weight in lbs Pre/Post Dialysis Refused Weight 236.192230953802 BP Diastolic BP Location Tested BP Systolic BP Type 84 131 Fetus Heart Rate Present Fetus Movement A No Comments Patient is having round liga ment pain. reviewed US, precautions and education, IUI done in the office, on pnv, sees an electrical appliance repairer regularly, labs with NIPS today, routine care Flowsheet Date 02/18/2024 Castaneda Score Blood Edema Fundus Height Fundus Units Glucose Ketones Leukocytes Nitrite Labor Signs Protein Cervic Dilation Cervic Effacement Cervic Station trace Type Weight in lbs Pre/Post Dialysis Refused Weight 240.347570446723 BP Diastolic BP Location Tested BP Systolic BP Type 78 133 Fetus Heart Rate Present A 154 Present Fetus Movement A Yes Comments Patient is having some pain and swelling. 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 as director intelligence analysis programs and will look at classes, f/u 4 [...] Type Weight in lbs Pre/Post Dialysis Refused 242.860617442137 BP Diastolic BP Location Tested BP Systolic [...] Type Weight in lbs Pre/Post Dialysis Refused 250.952201146811 BP Diastolic BP Location Tested BP Systolic [...] Type Weight in lbs Pre/Post Dialysis Refused 253.254759884032 BP Diastolic BP Location Tested BP Systolic [...] Type Weight in lbs Pre/Post Dialysis Refused 253.877335596870 BP Diastolic BP Location Tested BP Systolic [...] Type Weight in lbs Pre/Post Dialysis Refused 260.524665317983 BP Diastolic BP Location Tested BP Systolic [...] Type Weight in lbs Pre/Post Dialysis Refused 267.462751960316 BP Diastolic BP Location Tested BP Systolic [...] Weight in lbs Pre/Post Dialysis Refused Weight 267.740867669157 BP Diastolic BP Location Tested BP Systolic BP Type 111 164 98 168 Fetus Heart Rate Present Fetus Movement Comments Flowsheet Date 07/02/2024 Castaneda Score Blood Edema Fundus Height Fundus Units Glucose Ketones Leukocytes Nitrite Labor Signs Protein Cervic Dilation Cervic Effacement Cervic Station trace Type Weight in lbs Pre/Post Dialysis Refused 267.826695873660 BP Diastolic BP Location Tested BP Systolic [...] Type Weight in lbs Pre/Post Dialysis Refused 266.224458847028 BP Diastolic BP Location Tested BP Systolic [...] Weight in lbs Pre/Post Dialysis Refused Weight 241.639076302020 BP Diastolic BP Location Tested BP Systolic [...] At Estimated Date of Delivery false Thalassemia (Ugandan, Bengali, Mediterranean, Or Background): MCV < 80 false Neural Tube Defect (Meningom yelocele, Spina Bifida, Or Anencephaly) false Congenital Heart Defect false Down Syndrome false Kwadwo-Sachs (eg, Alevism, Cajun, Kinyarwanda-Beninese) f alse Dorita Disease false Sickle Cell [...]
--- OUTSIDE RECORDS SUMMARY | 2024-07-19 16:54 | XMS_ITS | Continuity of Care Document ---
Author Organization [facility] [place] Address [address] [place] [address] Care Team Providers Care Carpenters Helper Name Role Phone [facility] Primary Care Provider JERALD FRANKS Primary Care Provider [phone] Assessment No assessment recorded. Plan of Treatment Reminders Order Date Submit Date Provider Last Modified By Organization Details Last Modified Time Details Appointments SURG POST OP 024 04:30PM Robert YOO MD Not available Not available Not available Lab None record ed. Referral None record ed. Procedures None record ed. Surgeries None record ed. Imaging US, obstet sammy, follow -up 024 05/12/20 24 [email or web address] [address], [address], [place], [address], 05/12/2024 21:47:02 Medication Orders None record ed. Patient TargetsNo targets recorded. Patient InstructionsNo instructions recorded. Reason for Referral None Reported. Results Created Date Observation Date Name Description Value Unit Range Abnormal Flag Note LastModifiedBy Organization Detail LastModifiedTime 01/21/20 24 01/21/2024 US, obste tric, nucha l trans lucen cy No observ ation record ed. [email or web address] [facility] [address], [place], [address], 01/21/2024 18:13:45 01/21/20 24 01/21/2024 US, obste tric, follo w-up No observ ation record ed. [email or web address] [address], [place], [address], 01/21/2024 18:02:27 03/17/20 24 03/17/2024 US, obste tric, 2nd or 3rd trime ster No observ ation record ed. [email or web address] [facility] [address], [place], [address], 03/17/2024 18:00:40 03/17/20 24 03/17/2024 US, obste tric, 2nd or 3rd trime ster No observ ation record ed. [email or web address] [address], [place], [address], 03/17/2024 21:29:59 03/17/20 24 03/17/2024 US, obste tric, 2nd or 3rd trime ster No observ ation record ed. [email or web address] [address], [place], [address], 03/17/2024 21:29:58 05/12/20 24 05/12/2024 US, obste tric, follo w-up No observ ation [facility] ed. [facility] [address], [place], [address], 05/12/2024 12:28:02 05/12/20 24 05/12/2024 US, obste tric, follo w-up No observ ation record ed. [address], [place], [address], 2024 14:27:07 06/09/20 24 06/09/2024 US, obste tric, follo w-up No observ ation record ed. [email or web address] [facility] [address], [place], [address], 06/09/2024 18:21:25 06/09/20 24 06/09/2024 US, obste tric, follo w-up No observ ation record ed. [email or web address] [address], [place], [address], 06/09/2024 23:15:46 06/30/20 24 06/30/2024 US, obste tric, bioph ysica l profi le + non-s tress test No observ ation record ed. [facility] [address], [place], [address], 06/30/2024 14:24:56 06/30/20 24 06/30/2024 US, obste tric, follo w-up No observ ation record ed. [address], [place], [address], 07/01/2024 18:39:43 07/02/20 24 07/02/2024 non-s tress test No observ ation record ed. [email or web address] [facility] [address], [place], [address], 07/02/2024 19:37:01 07/02/20 non-s tress test No observ ation record ed. [email or web address] [facility] [address], [place], [address], 07/02/2024 19:38:57 07/06/20 24 07/06/2024 non-s tress test No observ ation record ed. [address] [facility] [address], [place], [address], 07/06/2024 15:30:22 07/07/20 24 07/07/2024 US, obste tric, bioph ysica l profi le + non-s tress test No observ ation record ed. [facility] [address], [place], [address], 07/07/2024 13:11:20 07/07/20 24 07/07/2024 US, obste tric, follo w-up No observ ation record ed. [email or web address] [facility] [address], [place], [address], 07/07/2024 13:11:30 07/07/20 24 07/07/2024 US, obste tric, follo w-up No observ ation record ed. [address], [place], [address], 07/08/2024 09:12:23 07/07/20 24 07/07/2024 non-s tress test No observ ation record ed. [email or web address] [facility] [address], [place], [address], 07/07/2024 14:50:51 Result Notes None recorded. Problems Name Problem SNOMED Code Status Onset Date Resolution Date Notes Provider Name and Address Organization Details Recorded Time Pregnanc y 96856726 Completed 202307/19/2024 Whit zaman, [facility] 4 17:45:12 Primary infertil ity 725874053 Completed [address], [place], [address], [facility] 4 14:44:04 Artifici al insemina tion Completed IUI by Sp [address], [place], [address], [facility] 4 14:44:04 Disorder of thyroid gland 86310531 Completed followed by endocrin e on unithroi d daily [address], [place], [address], [facility] 4 14:44:04 Problem Notes None recorded. Procedures Surgical History Date Name Laterality Status Provider Name and Address Organization Details Recorded Time 07/12/20 24 SECTION (SURG) completed [facility] 07/14/2024 20:00:50 12/24/19 Date of Last Pap Smear completed [facility] 12/24/2023 14:16:42 11/11/19 24 intrauterine artificial insemination completed [facility] 11/11/2023 10:01:37 Imaging Results Imaging Date Name Status LastModified by Organiz ation Details LastModified Time 05/12/2024 US, obstetric, follow-up completed [facility] [address], [place], [address], 05/12/2024 12:28:02 05/12/2024 US, obstetric, follow-up completed [email or web address] [address] [facility], [place], [address], 2024 14:27:07 Procedure Notes None recorded. Medical Equipment None [...] (supplie d by patient from pharmacy lot [id number] Exp 06/15/20 Not Available Not Available Not [...] Address Organization Details Last Updated DateTime 05/12/2024 784722.8 6961 g 40.8 kg/m2 167.64 cm 131 mm[Hg] 74 mm[Hg] Gwen Glass [facility] 10:20:23 Social History Question Answer Notes LastModified by Organizat ion Details LastModified Time Tobacco Smoking Status Never Smoker Violet Mac junie, [facility] 12/25/2022 15:25:08 Do You Have An Advance Directive? No Information n ot available 08/01/2021 What Is Your Level Of Alcohol Consumption? None [email or web address] Information not available 08/01/2021 Are You Blind Or Do You Have Difficulty Seeing? No [email or web address] Information n ot available 08/01/2021 What Is Your Level Of Caffeine Consumption? Moderate [email or web address] Information not available 08/01/2021 In The 14 Days Before Symptom Onset, Have You Had Close Contact With A Laboratory-confirm ed COVID-19 While That Case Was Ill? No [email or web address] Information n ot available 08/01/2021 In The 14 Days Before Symptom Onset, Have You Had Close Contact With A Person Who Is Under Investigation For COVID-19 While That Person Was Ill? No [email or web address] Information not available 08/01/2021 Have You Been To An Area Known To Be High Risk For COVID-19? No [email or web address] Information not available 08/01/2021 Are You Deaf Or Do You Have Serious Difficulty Hearing? No Information not available 08/01/2021 What Type Of Diet Are You Following? REGULAR [email or web address] Information n ot available 08/01/2021 What Is The Highest Grade Or Level Of School You Have Completed Or The Highest Degree You Have Received? 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 No Information not available 08/01/2021 Do You Use Protection During Sex? Always Information not available 08/01/2021 Do You Use Your Seat Belt Or Car Seat Routinely? Yes Information not available 08/01/2021 Do You Have Smoke And Carbon Monoxide Detectors In Your Home? Yes [email or web address] Information not available 08/01/2021 How Much Tobacco Do You Smoke? No [email or web address] Information not available 08/01/2021 Do You Feel Stressed (tense, Restless, Nervous, Or Anxious, Or Unable To Sleep At Night)? [id number] Information not available 08/01/2021 Do You Use Any Illicit Or Recreational Drugs? No [email or web address] Information not available 08/01/2021 Do You Use Sunscreen Routinely? Yes [email or web address] Information not available 08/01/2021 Has Tobacco Cessation Counseling Been Provided? No [email or web address] Information not available 12/25/2022 Have You Used IV Drugs? No [email or web address] Information not available 08/01/2021 Do You Or Have You Ever Used Any Other Forms Of Tobacco Or Nicotine? No [email or web address] Information not available 12/25/2022 Sex: Unknown Functional Status Question Answer Note LastModified by Organizat ion Details LastModified Time Do you have difficulty walking or climbing stairs? No [email or web address] Information not available 12/25/2022 Are you able to walk? YESWOREST [email or web address] Information not available 08/01/2021 Are you able to care for yourself? Yes Information not available 12/25/2022 Do you have difficulty dressing or bathing? No Information not available 12/25/2022 What is your exercise level? Moderate [email or web address] Information not available 08/01/2021 Mental Status None recorded. Family History Relationship Description Onset Age of this Age Resolved Age Notes LastModified by Organization Details LastModified Time Maternal Grandmother Disorder of thyroid gland [email or web address] Not available 08/01 09:54:58 Mother Asthma [email or web address] Not available 08/01/2021 09:54:58 Mother Disorder of thyroid gland [email or web address] Not available 08/01 09:54:58 Paternal Grandmother Heart [...] Diagnosis/Indication Diagnosis SNOMED-CT Code Diagnosis ICD10 Code [id number] [facility] [address] [address] 04/14/2024 12:21:48 04/14/2024 13:42:54 Routine care 692721738 Z34.92 [id number] Clari Vanessa [facility] [address] [address] 05/12/2024 09:34:59 05/12/2024 10:09:12 Uterine size for dates discrepancy 744088506 O26.843 O09.813 Z3A.28 [id number] Marilyn Willams [facility] [address] [address] 05/12/2024 09:35:15 05/12/2024 10:37:46 Gestation period, 28 weeks 30678062 Z3A.28 Health Concerns Section Related Observation LastModified by Organization Detai ls LastModified Time None Recorded Concern Status LastModified by Organization Details LastModified Time None Recorded Payers Encounter Date Sequence Insurance Name Policy Number Policy Leos Covered Member ID Leos Member ID Guarantor Name 05/12/2024 1 [employer] [id number] Gold Villatoro [id number] Annabel Villatoro OBGyn Episode Ob Episode Information Episode Created Date Number of Fetuses Patient Bloodtype Patient rh Status Prepregnancy Weight lbs Domestic Partner Domestic Partner Phone Father 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 Status 01/21/20 24 1 B Positive 237 Gold Bautista on CLOSED Fetus Data First Name Last Name Admitted to NICU Weight (g) Sex Living Outcome Pediatric Complications Fetus ID Race Codes Race Delivery Type Tommy 2778.25 1 M [id number] Primary Problems Problem Notes +GBS Problem Name Start Date End Date Resolution Snomed Code Not e Disorder of thyroid gland 87891741 followed by endocrine on unithroid daily Primary infertility [id number] Artificial insemination [id number] IUI by Sp Eugene Calculation EUGENE [...] Sound Latest Days Gestation 01/21/20 24 12 [email or web address] 01/21/2024 07/31/19 25 3 Pre- Flowsheet Flowsheet Date 01/21/2024 Castaneda Score Blood Edema Fundus Height Fundus Units Glucose Ketones Leukocytes Nitrite Labor Signs Protein Cervic Dilation Cervic Effacement Cervic Station none Type Weight in lbs Pre/Post Dialysis Refused Weight 236.446292834110 BP Diastolic BP Location Tested BP Systolic BP Type 84 131 Fetus Heart Rate Present Fetus Movement A No Comments Patient is having round liga ment pain. reviewed US, precautions and education, IUI done in the office, on pnv, sees an senior safety support manager regularly, labs with [facility] today, routine care Flowsheet Date 02/18/2024 Castaneda Score Blood Edema Fundus Height Fundus Units Glucose Ketones Leukocytes Nitrite Labor Signs Protein Cervic Dilation Cervic Effacement Cervic Station trace Type Weight in lbs Pre/Post Dialysis Refused Weight 240.207546640481 BP Diastolic BP Location Tested BP Systolic BP Type 78 133 Fetus Heart Rate Present A 154 Present Fetus Movement A Yes Comments Patient is having some pain and swelling. 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 and will look at classes, f/u [...] Type Weight in lbs Pre/Post Dialysis Refused 242.254702817507 BP Diastolic BP Location Tested BP Systolic [...] Type Weight in lbs Pre/Post Dialysis Refused 250.095638883049 BP Diastolic BP Location Tested BP Systolic [...] Type Weight in lbs Pre/Post Dialysis Refused 253.087121129733 BP Diastolic BP Location Tested BP Systolic [...] Type Weight in lbs Pre/Post Dialysis Refused 253.125184100864 BP Diastolic BP Location Tested BP Systolic [...] Type Weight in lbs Pre/Post Dialysis Refused 260.687030225748 BP Diastolic BP Location Tested BP Systolic [...] Type Weight in lbs Pre/Post Dialysis Refused 267.365278987699 BP Diastolic BP Location Tested BP Systolic [...] Weight in lbs Pre/Post Dialysis Refused Weight 267.453479530130 BP Diastolic BP Location Tested BP Systolic BP Type 111 164 98 168 Fetus Heart Rate Present Fetus Movement Comments Flowsheet Date 07/02/2024 Castaneda Score Blood Edema Fundus Height Fundus Units Glucose Ketones Leukocytes Nitrite Labor Signs Protein Cervic Dilation Cervic Effacement Cervic Station trace Type Weight in lbs Pre/Post Dialysis Refused 267.655959298940 BP Diastolic BP Location Tested BP Systolic [...] Type Weight in lbs Pre/Post Dialysis Refused 266.054421096533 BP Diastolic BP Location Tested BP Systolic [...] Weight in lbs Pre/Post Dialysis Refused Weight 241.968749344763 BP Diastolic BP Location Tested BP Systolic [...] At Estimated Date of Delivery false Thalassemia (Icelandic, Upper Sorbian, Mediterranean, Or Background): MCV < 80 false Neural Tube Defect (Meningom yelocele, Spina Bifida, Or Anencephaly) false Congenital Heart Defect false Down Syndrome false Kwadwo-Sachs (eg, Congregational, Cajun, Albanian-Ravena) f alse Dorita Disease false Sickle Cell Disease Or Trait () false Hemophilia Or Other Blood Disorders false Muscular Dystrophy false Cystic Fibrosis false [place]'s Chorea false Intellectual Disability/Autism false If Yes, [...]
== END 2024-07-15 15:10 | disposition home or self-care (01) | DRG 787 ==
LOC: ANHLDR 10:20 → ANHOB2 16:02
PROVIDERS: Admitting Provider Obstetrics & Gynecology; Visit Provider Obstetrics & Gynecology
PROC: 10D00Z1 Extraction of Products of Conception, Low, Open Approach (ICD-10-PCS; CPT 59514; principal; 2024-07-12 12:00)
DX: O32.1XX0 Maternal care for breech presentation, not applicable or unspecified (principal); O41.03X0 Oligohydramnios, third trimester, not applicable or unspecified; Z37.0 Single live birth; Z3A.37 37 weeks gestation of pregnancy; O99.824 Streptococcus B carrier state complicating childbirth; O14.14 Severe pre-eclampsia complicating childbirth; O13.4 Gestational [pregnancy-induced] hypertension without significant proteinuria, complicating childbirth; O99.284 Endocrine, nutritional and metabolic diseases complicating childbirth; E03.9 Hypothyroidism, unspecified
CPT/HCPCS: 36415; 80053; 85025; 86592; 86703; 86850; 86900; 86901; A9270; G0432; J0690; J1885; J2270; J2274; J2405; J2590; J2765; J3475; J7120